=== PATIENT | female | born 1955 | race Caucasian/White ===

== ENCOUNTER 2017-06-10 10:30 | Outpatient (RCR) | payer OTHER, SELFPAY ==
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
--- NOTE | 2017-05-21 10:48 | HP.PTREVAL_ITS ---
Christine Wright, It has been my pleasure to treat MELANIE BRISENO over the last 6 visits for NECK PAIN, CERVICAL ARTHRITIS, NUMBNESS OF RIGHT ARM. Please see the progress note below for an update on the physical therapy plan of care! Subjective: PATIENT REPORTS SHE STILL GETS PAIN WHEN SHE BENDS AND REACHES (AND HER ARM FEELS LIKE IT IS GOING TO FALL OFF) BUT IT IS MUCH BETTER. SHE REPORTS SHE IS CONTINUING TO IMPROVE WITH THE EX'S. STATES SHE WANTS TO CONTINUE PT IF SHE CAN GET MORE INSURANCE APPROVAL. CONSTANT 1/10 NECK PAIN X 20 YEARS. RIGHT UE GETS NUMB, TINGLY AND/OR WEAK ON A DAILY BASIS. Objective/Function: GOOD PROGRESS TOWARD ALL GOALS BUT PATIENT CONTINUES TO HAVE SIGNIFICANT RIGHT UE SX'S. RECOMMEND FOLLOW WITH DR. FOFANA AT THIS POINT SINCE SHE MAY NEED TO STOP PT. UPON EXAM TODAY, DESI FAUCET POLISHER STRENGTH = 50LBS. MMT : RIGHT SHOULDER FLEX 4/5, ABD 4-/5, IR 5/5, ER 4/5, ELBOW FLEX 5/5, ELBOW EXT 4/4. LUE: 5/5. DESI UE ROM WFL. CERVICAL MVMT LOSS: FLEX - NIL, PRO - NIL, EXT - MOD, RET - MOD, RIGHT ROT - MOD, LEFT ROT - MIN, DESI SB - MOD. RIGHT ROTATION AND RIGHT SB STILL PROVOKE RIGHT NECK PAIN. MMT OF RIGHT SHOULER PROVOKES RIGHT UE PAIN AND WEAKNESS DURING AND AFTER. RECOMMEND CONTINUED PT PER POC 2-3 TIMES A WEEK X 3-4 WEEKS. Plan Plan: RECOMMEND CONT PT 2-3 TIMES A WEEK X 3-4 WEEKS FOR CERVICAL MODALITIES NEEDED. CERVICAL ISOMETRICS. POSTURE CORRECTION/STRENGTHENING. AROM OF C- SPINE. DESI UE ROM/STRETCHING/STRENGTHEING TOLERATED. HEP INSTRUCTION. NO PASSIVER CERVICAL ROM, TX OR MOBILIZATION. Goals Goal 1:: DECREASE C/O NECK AND UE SX'S Goal Time Frame: 4-6 Weeks Goal Progress: Progressing Goal 2:: IMPROVE HEAD TURNING, REACHING, PERSONAL CARE, LIFTING, READING, SLEEP , WORK, DRIVING AND RECREATIONAL FUNCTION Goal Time Frame: 4-6 Weeks Goal Progress: Progressing Goal 3:: INSTRUCT IN PROPHYLAXIS Goal Time Frame: 4-6 Weeks Goal Progress: Progressing Anticipated Interventions Patient/Client Instruction: Educate patient on: Condition, Plan of Care, Risk Factors, Benefits of Fitness Program For the Purpose of:: To improve self management Therapeutic Exercise to Include: Body mechanics, Postural training, Flexibilty training, Active ROM, Scapular Strength/Stabilization For the Purpose of:: To improve ability of physical actions for home/community/ work/leisure Manual Therapy Techniques to Include: Soft tissue mobilization For the Purpose of:: To decrease pain, To decrease swelling/inflammation, To increase ROM TENS: Yes IF ES: Yes Cryotherapy (ice pack, ice massage): Yes Thermo therapy (hot pack): Yes Ultrasound (thermal/non thermal): Yes For the Purpose of:: To decrease pain, To decrease swelling/inflammation, To increase ROM Please do not hesitate to contact me at [phone] by phone or Fax: if you have questions or concerns regarding this new plan of care! Sincerely, Maude Zhu
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
--- NOTE | 2017-09-04 12:30 | HP.PTDCSUM_ITS ---
HP - PT D/C Summary It has been my pleasure to treat MELANIE BRISENO under orders from Christine Wright, for the diagnosis of NECK PAIN, CERVICAL ARTHRITIS, NUMBNESS OF RIGHT ARM for a total of 8 visit(s). Discharge Date: Please see the following information for a summary of their discharge status. - Subjective Subjective: PATIENT REPORTS SHE IS ABOUT THE SAME NOW SHE WAS AT HER LAST VISIT. SHE REPORTS HER WHOLE RIGHT UE TO HER FINGERS HAD PAIN, NUMBNESS AND TINGLING THIS MORNING WHEN SHE BENT DOWN TO REACH FOR SOMETHING. - Pain RIGHT NECK Pain Intensity (Out of 10): 1 - Overall Improvement % Improvement: 60 - Objective Objective/Function: TOLERATED ALL TREATMENT WELL TODAY. GOOD RECALL OF ALL EX'S AND SHOWING MORE INDEPENDENCE. - Goals Goal 1:: DECREASE C/O NECK AND UE SX'S Goal Progress: Progressing Goal 2:: IMPROVE HEAD TURNING, REACHING, PERSONAL CARE, LIFTING, READING, SLEEP , WORK, DRIVING AND RECREATIONAL FUNCTION Goal Progress: Progressing Goal 3:: INSTRUCT IN PROPHYLAXIS Goal Progress: Progressing - Plan Plan: CONT PER POC - D/C Information If there are questions or concerns regarding this patient's physical therapy, please feel free to call me at [phone]. Thank you for the referral of this patient. Sincerely, Maude Zhu
== END 2017-06-10 19:00 | disposition home or self-care (01) ==
LOC: PT 10:30
PROVIDERS: Family Provider Family Medicine; PCP Family Medicine; Visit Provider Nurse Practitioner Adult Health
DX: M54.2 Cervicalgia (principal); M46.82 Other specified inflammatory spondylopathies, cervical region; R20.0 Anesthesia of skin
CPT/HCPCS: 97014 ×5; 97035 ×5; 97110 ×3; 97162; 97530 ×5; G0283

== ENCOUNTER → 2017-09-15 12:07 | Outpatient (CLI) | payer OTHER, SELFPAY ==
[2017-09-15 14:08] LABS: Absolute Lymphocyte Count 1.89 X10^3/ul (0.83-4.51); Absolute Neutrophil Count 3.1 X10^3/uL (2.0-7.7); Basophil# 0.03 X10^3/uL; Basophil% 0.5 % (0-1); Eosinophil# 0.14 X10^3/uL; Eosinophils% 2.5 % (0-5); Hematocrit 40.6 % (37-47); Hemoglobin 13.5 g/dl (12.0-15.0); Lymphocyte # 1.89 X10^3/ul (4.0); Lymphocyte % 33.6 % (19-41); Mean Corp Hgb Conc 33.3 g/gl (32-36); Mean Corpuscular Hgb 30.3 pg (27.0-32.0); Mean Platelet Vol. 9.4 fl (6.2-12.0); Monocyte# 0.46 X10^3/uL; Monocyte% 8.2 % (0-10); POSITIVE COUNT NO; POSITIVE DIFFERENTIAL NO; POSITIVE MORPHOLOGY NO; Platelet Count 263 K/mm3 (150-450); RBC Distribution Width CV 13.6 % (11.6-14.6); RBC Distribution Width SD 44.8 fl (35.1-43.9); Red Blood Count 4.46 M/mm3 (4.2-5.4); White Blood Count 5.6 K/mm3 (4.4-11.0)
[2017-09-15 14:33] LABS: Vitamin D,25 Hydroxy 29.3 ng/mL (29.95-100.01)
[2017-09-15 14:34] LABS: AST(SGOT) 24 U/L (15-37); Alanine Aminotransfer ALT/SGPT 30 U/L (13-56); Albumin, Serum 3.7 g/dL (3.2-5.0); Alkaline Phosphatase 137 U/L (45-117); Anion Gap 6 (5-15); BUN 18 mg/dL (7-18); BUN/Creat Ratio 21.7 RATIO (10-20); Calcium,Total 8.7 mg/dL (8.5-10.1); Chloride 108 mmol/L (98-107); Cholesterol 211 mg/dL (200); Creatinine, Serum 0.83 mg/dL (0.55-1.02); EST Glomerular Filtration Rate 74 mL/min (>60); Est Glom Filt Rate - Afr Amer 89 mL/min (>60); Ferritin 67 ng/mL (8-252); Globulin 3.7 g/dL (2.2-4.2); Glucose 80 mg/dL (74-106); High Density Lipoprotein 70 mg/dL; Iron 53 ug/dL (50-170); Potassium 3.8 mmol/L (3.5-5.1); Protein, Total 7.4 g/dL (6.4-8.2); Sodium Level 143 mmol/L (136-145); Triglycerides 164 mg/dL; Very Low Density Lipoprotein 33 mg/dL (5-40)
== END ==
PROVIDERS: Family Provider Family Medicine; PCP Family Medicine; Visit Provider Family Medicine
DX: E03.9 Hypothyroidism, unspecified (principal); R53.83 Other fatigue; K21.9 Gastro-esophageal reflux disease without esophagitis
CPT/HCPCS: 36415; 80053; 80061; 82306; 82728; 83540; 84443; 85025; 86140

== ENCOUNTER 2017-09-16 00:06 | Emergency (ER) | payer OTHER, SELFPAY ==
[2017-09-16 00:08] VITALS: BP 153/61; PULSE 73; RESP 17; TEMP 36.2; O2SAT 96; BMI 36.6
--- NOTE | 2017-09-16 00:30 | EKG12_ITS ---
Test Reason : SB Blood Pressure : / mmHG Vent. Rate : 062 BPM Atrial Rate : 062 BPM P-R Int : 136 ms QRS Dur : 088 ms QT Int : 424 ms P-R-T Axes : 020 -12 017 degrees QTc Int : 430 ms Normal sinus rhythm Nonspecific ST and T wave abnormality Abnormal ECG Confirmed by EDUARDO KING, RANDY ([id number]), copy editor JUDIE DANIELLE ([id number]) on 09/17/2017 3:32:13 PM Referred By: SHA Confirmed By:RANDY CLARK MD
--- NOTE | 2017-09-16 00:32 | ED.DCSUM_ITS ---
- ER Visit Summary Date of Service: 09/16/17 Chief Complaint: Palpitations, lightheaded, facial tingling History of Present Illness: The patient is a 61 F sudden lightheadedness with palpitations at 11 PM. She had tingling in her left hindu along with left shoulder. There is no numbness or facial weakness. No hemiparesis. No speech changes. Denies any chest pains. Denies recent nausea vomiting diarrhea. No recent upper respiratory illness. Symptoms currently resolved. No stroke history. No cardiac history. On thyroid medications. Denies tobacco, alcohol , or illicit drug use. Physical Examination: General: Alert and oriented ?3, no acute distress HEENT: Normocephalic, atraumatic. Moist mucosa membranes Neck: supple, nontender. Cardiovascular: Regular rate and rhythm, no murmurs Respiratory: Normal breath sounds, symmetric, no distress Abdomen: Soft, nontender, nondistended Extremities: Nontender, no edema, pulses intact ?4 Neuro: no focal neurological deficits. NIH equals 0. Test Results: EKG: Sinus rate of 62, no ST or T-wave changes. White count 7.2. Hemoglobin 17. Potassium 3.6. Creatinine 0.82. Emergency Department Course and Treatment: Patient was triaged with concerns for stroke symptoms. My evaluation these were not stroke symptoms. She had near syncopal symptoms with palpitations. No focal neurological deficits. EKG was normal. Basic labs are normal. Given 500 cc of normal saline. She was ambulating apart with no difficulties. Discussed palpitations with monitoring symptoms. Follow-up with her PCP reevaluation for possible Holter monitor. She does admit to drinking tea however drinks this in the morning. Patient understands and agrees with plan. Treatment Plan: [] Disposition: Discharge Impression: 1. Palpitations 2. Near syncope This note was generated with [employer] software. It may contain incorrect words, spelling, and punctuation that were not noted in review of the chart prior to signing ED Disposition - Plan for ED Patient: Disposition: Home or Assisted Living Chief Complaint: Numb/Ting Diagnosis: Palpitations Instructions: ED Palpitations Referrals: Balbir Leach MD [Primary Care Provider] - 3-5 Days
[2017-09-16 01:08] VITALS: BP 129/72; PULSE 61; RESP 12; O2SAT 97
[2017-09-16 01:12] LABS: Absolute Lymphocyte Count 2.71 X10^3/ul (0.83-4.51); Absolute Neutrophil Count 3.8 X10^3/uL (2.0-7.7); Basophil# 0.03 X10^3/uL; Basophil% 0.4 % (0-1); Eosinophil# 0.17 X10^3/uL; Eosinophils% 2.3 % (0-5); Hematocrit 39.3 % (37-47); Hemoglobin 12.8 g/dl (12.0-15.0); Lymphocyte # 2.71 X10^3/ul (4.0); Lymphocyte % 36.4 % (19-41); Mean Corp Hgb Conc 32.6 g/gl (32-36); Mean Corpuscular Hgb 29.4 pg (27.0-32.0); Mean Corpuscular Volume 90.3 fL (81-99); Mean Platelet Vol. 8.7 fl (6.2-12.0); Monocyte# 0.71 X10^3/uL; Monocyte% 9.5 % (0-10); Neutrophil # 3.82 X10^3/uL (2.7-7.7); Neutrophil % 51.3 % (47-70); Platelet Count 223 K/mm3 (150-450); RBC Distribution Width CV 13.4 % (11.6-14.6); Red Blood Count 4.35 M/mm3 (4.2-5.4); White Blood Count 7.5 K/mm3 (4.4-11.0)
[2017-09-16 01:17] LABS: POSITIVE COUNT NO; POSITIVE DIFFERENTIAL NO; POSITIVE MORPHOLOGY NO
[2017-09-16 01:27] LABS: Anion Gap 5 (5-15); BUN 23 mg/dL (7-18); BUN/Creat Ratio 27.9 RATIO (10-20); Chloride 107 mmol/L (98-107); Creatinine, Serum 0.82 mg/dL (0.55-1.02); EST Glomerular Filtration Rate 74 mL/min (>60); Est Glom Filt Rate - Afr Amer 90 mL/min (>60); Estimated Creatinine Clearance 55.54 ml/min; Glucose 102 mg/dL (74-106); Potassium 3.6 mmol/L (3.5-5.1); Sodium Level 142 mmol/L (136-145)
[2017-09-16 02:45] VITALS: BP 118/76; PULSE 67; RESP 16; O2SAT 100
== END 2017-09-16 02:46 | disposition home or self-care (01) ==
PROVIDERS: Emergency Provider Emergency Medicine; Family Provider Family Medicine; PCP Family Medicine
DX: R00.2 Palpitations (principal); R55 Syncope and collapse; Z79.899 Other long term (current) drug therapy
CPT/HCPCS: 80048; 85025; 93005; 96360; 99284; J7040

== ENCOUNTER → 2017-11-17 12:01 | Outpatient (CLI) | payer OTHER, SELFPAY ==
[2017-11-17 13:48] LABS: Absolute Lymphocyte Count 1.75 X10^3/ul (0.83-4.51); Absolute Neutrophil Count 3.2 X10^3/uL (2.0-7.7); Basophil# 0.02 X10^3/uL; Basophil% 0.4 % (0-1); Eosinophil# 0.15 X10^3/uL; Eosinophils% 2.7 % (0-5); Hematocrit 39.9 % (37-47); Hemoglobin 12.9 g/dl (12.0-15.0); Lymphocyte # 1.75 X10^3/ul (4.0); Lymphocyte % 31.3 % (19-41); Mean Corp Hgb Conc 32.3 g/gl (32-36); Mean Corpuscular Volume 89.7 fL (81-99); Mean Platelet Vol. 9.6 fl (6.2-12.0); Monocyte# 0.45 X10^3/uL; Neutrophil # 3.22 X10^3/uL (2.7-7.7); Neutrophil % 57.4 % (47-70); Platelet Count 274 K/mm3 (150-450); RBC Distribution Width CV 13.4 % (11.6-14.6); RBC Distribution Width SD 43.8 fl (35.1-43.9); Red Blood Count 4.45 M/mm3 (4.2-5.4); White Blood Count 5.6 K/mm3 (4.4-11.0)
[2017-11-17 13:53] LABS: POSITIVE COUNT NO; POSITIVE DIFFERENTIAL NO; POSITIVE MORPHOLOGY NO
[2017-11-17 14:11] LABS: Anion Gap 4 (5-15); BUN 18 mg/dL (7-18); Calcium,Total 8.5 mg/dL (8.5-10.1); Chloride 108 mmol/L (98-107); Creatinine, Serum 1.06 mg/dL (0.55-1.02); EST Glomerular Filtration Rate 56 mL/min (>60); Est Glom Filt Rate - Afr Amer 67 mL/min (>60); Glucose 79 mg/dL (74-106); Potassium 3.5 mmol/L (3.5-5.1); Sodium Level 143 mmol/L (136-145); T4 Free Direct 1.18 ng/dL (0.76-1.46); Thyroid Stim Hormone (TSH) 2.85 uIU/mL (0.358-3.74)
== END ==
PROVIDERS: Family Provider Family Medicine; PCP Family Medicine; Visit Provider Family Medicine
DX: R59.1 Generalized enlarged lymph nodes (principal); E03.9 Hypothyroidism, unspecified
CPT/HCPCS: 36415; 80048; 84439; 84443; 85025

== ENCOUNTER → 2018-03-31 11:55 | Outpatient (CLI) | payer OTHER, SELFPAY ==
[2018-03-31 13:46] LABS: Hematocrit 37.9 % (37-47); Hemoglobin 12.6 g/dl (12.0-15.0); Mean Corp Hgb Conc 33.2 g/gl (32-36); Mean Corpuscular Hgb 29.7 pg (27.0-32.0); Mean Corpuscular Volume 89.4 fL (81-99); Platelet Count 288 K/mm3 (150-450); RBC Distribution Width CV 13.7 % (11.6-14.6); RBC Distribution Width SD 44.1 fl (35.1-43.9); Red Blood Count 4.24 M/mm3 (4.2-5.4); White Blood Count 6.2 K/mm3 (4.4-11.0)
[2018-03-31 13:47] LABS: Scan Indicated on CBC? Y/N NO
[2018-03-31 14:14] LABS: Vitamin B12 713 pg/mL (211-911)
[2018-03-31 14:18] LABS: Anion Gap 5 (5-15); BUN 17 mg/dL (7-18); BUN/Creat Ratio 23.6 RATIO (10-20); Calcium,Total 8.7 mg/dL (8.5-10.1); Chloride 105 mmol/L (98-107); Creatinine, Serum 0.72 mg/dL (0.55-1.02); EST Glomerular Filtration Rate 87 mL/min (>60); Est Glom Filt Rate - Afr Amer 105 mL/min (>60); Glucose 81 mg/dL (74-106); Potassium 3.6 mmol/L (3.5-5.1); Sodium Level 141 mmol/L (136-145); T4 Free Direct 1.19 ng/dL (0.76-1.46)
== END ==
PROVIDERS: Family Provider Family Medicine; PCP Family Medicine; Visit Provider Family Medicine
DX: R42 Dizziness and giddiness (principal); E03.9 Hypothyroidism, unspecified
CPT/HCPCS: 36415; 80048; 82607; 84439; 84443; 85027

== ENCOUNTER → 2018-10-19 15:08 | Outpatient (CLI) | payer MEDICARE, OTHER, SELFPAY ==
--- NOTE | 2018-10-19 15:21 | RAD_ITS ---
STUDY: X-RAY - PELVIS AND RIGHT HIP REASON FOR EXAM: Female, 62 years old. Chronic hip pain recently worsening. TECHNIQUE: 3 views of the pelvis and hip. COMPARISON: None. FINDINGS: There is a non-specific bowel gas pattern. Normal visualized soft tissue structures. Normal bilateral iliac wings, sacroiliac joints and visualized sacrum. Normal bilateral superior and inferior pubic rami. Normal pubic symphysis. Normal bilateral ischial tuberosities. Normal visualized femoral head. There is osteoarthritic spur formation of the acetabular rim. There is mild articular joint space narrowing of the hip. RAD/HIP, UNI W/ Pelvis 2-3 Views IMPRESSION: Degenerative changes of the right hip without fracture or dislocation. Electronically Signed: Valentín Mathew DO at 15:57 EDT Tel [phone], Service support ,
[2018-10-19 17:45] LABS: Absolute Lymphocyte Count 2.15 X10^3/ul (0.83-4.51); Absolute Neutrophil Count 3.2 X10^3/uL (2.0-7.7); Basophil# 0.04 X10^3/uL; Basophil% 0.7 % (0-1); Eosinophil# 0.14 X10^3/uL; Eosinophils% 2.3 % (0-5); Hematocrit 40.1 % (37-47); Hemoglobin 13.2 g/dl (12.0-15.0); Lymphocyte # 2.15 X10^3/ul (4.0); Lymphocyte % 35.6 % (19-41); Mean Corp Hgb Conc 32.9 g/gl (32-36); Mean Corpuscular Hgb 28.6 pg (27.0-32.0); Mean Platelet Vol. 10.2 fl (6.2-12.0); Monocyte% 8.3 % (0-10); Neutrophil % 52.9 % (47-70); POSITIVE COUNT NO; POSITIVE DIFFERENTIAL NO; POSITIVE MORPHOLOGY NO; Platelet Count 310 K/mm3 (150-450); RBC Distribution Width CV 14.2 % (11.6-14.6); RBC Distribution Width SD 44.7 fl (35.1-43.9); Red Blood Count 4.61 M/mm3 (4.2-5.4)
[2018-10-19 17:53] LABS: Vitamin B12 1902 pg/mL (211-911); Vitamin D,25 Hydroxy 40.7 ng/mL (29.95-100.01)
[2018-10-19 17:57] LABS: AST(SGOT) 26 U/L (15-37); Alanine Aminotransfer ALT/SGPT 32 U/L (13-56); Albumin, Serum 3.8 g/dL (3.2-5.0); Alkaline Phosphatase 157 U/L (45-117); Anion Gap 5 (5-15); BUN 18 mg/dL (7-18); BUN/Creat Ratio 26.2 RATIO (10-20); Calcium,Total 8.6 mg/dL (8.5-10.1); Chloride 105 mmol/L (98-107); Creatinine, Serum 0.69 mg/dL (0.55-1.02); EST Glomerular Filtration Rate 91 mL/min (>60); Est Glom Filt Rate - Afr Amer 111 mL/min (>60); Glucose 78 mg/dL (74-106); Iron 43 ug/dL (50-170); Potassium 3.7 mmol/L (3.5-5.1); Protein, Total 7.8 g/dL (6.4-8.2); Sodium Level 140 mmol/L (136-145); Thyroid Stim Hormone (TSH) 0.11 uIU/mL (0.358-3.74)
[2018-10-20 09:16] LABS: T4 Free Direct 1.33 ng/dL (0.76-1.46)
== END ==
PROVIDERS: Family Provider Family Medicine; PCP Family Medicine; Referring Provider Family Medicine; Visit Provider Family Medicine
DX: M25.551 Pain in right hip (principal); R53.83 Other fatigue; R79.89 Other specified abnormal findings of blood chemistry
CPT/HCPCS: 36415; 73502; 80053; 82306; 82607; 83540; 84439; 84443; 85025

== ENCOUNTER → 2018-11-11 10:52 | Outpatient (CLI) | payer MEDICARE, OTHER, SELFPAY ==
--- NOTE | 2018-11-11 10:54 | BI_ITS ---
MAMMOGRAPHY - BILATERAL SCREENING REASON FOR EXAM: Female, 63 years old. Routine annual screening examination. PERTINENT HISTORY: Non-contributory. TECHNIQUE: Digital bilateral breast kojo (3D mammographic acquisition) in the CC and MLO projections. 2-D mediolateral oblique (MLO) and craniocaudad (CC) views of both breasts were obtained. CAD: Full Field Digital Mammography with Computer Added Detection was performed. COMPARISON: Comparison is made with prior study dated December 19, 2016 and August 31, 2013. FINDINGS: Breast Composition: The breasts are almost entirely fatty. There are no dominant masses or suspicious calcifications. No other significant abnormalities are identified. There has been no significant change since the prior study. BI/SCREENING MAMM (CAD), BILAT IMPRESSION: Stable bilateral screening mammogram. Yearly follow-up mammogram recommended. (A) ASSESSMENT CATEGORY: BIRADS Category 1: Negative. A letter regarding these results will be sent to the patient by the facility within 30 days. Approximately 10% of breast cancers are not detected by mammography. A normal mammogram should not delay biopsy of a clinically suspicious abnormality. [id number] Electronically Signed: Geoff Reyes, at 13:40 EDT , Service support ,
== END ==
PROVIDERS: Family Provider Family Medicine; PCP Family Medicine; Referring Provider Family Medicine; Visit Provider Family Medicine
DX: Z12.31 Encounter for screening mammogram for malignant neoplasm of breast (principal); Z78.0 Asymptomatic menopausal state
CPT/HCPCS: 77063; 77067

== ENCOUNTER → 2018-12-21 11:47 | Outpatient (CLI) | payer MEDICARE, OTHER, SELFPAY | PROVIDERS: Family Provider Family Medicine; PCP Family Medicine; Referring Provider Family Medicine; Visit Provider Family Medicine | DX: R30.0 Dysuria (principal) | CPT/HCPCS: 87086; 87088 ==

== ENCOUNTER → 2018-12-24 08:29 | Outpatient (CLI) | payer MEDICARE, OTHER, SELFPAY ==
--- NOTE | 2018-12-24 08:34 | BD_ITS ---
STUDY: DUAL ENERGY X-RAY ABSORPTIOMETRY / DXA REASON FOR EXAM: Female, 63 years old. The patient is postmenopausal. No loss of height. TECHNIQUE: Bone Mineral Density (BMD) measurements of lumbar spine and bilateral hips were obtained. COMPARISON: Comparison is made with prior examination dated December 19, 2016. FINDINGS: Lumbar Spine (L1-L4): g/cm2 (1.240) / T-score (0.5) / Z-score (2.1) Findings are suggestive of normal bone density with a low fracture risk. Left Femur Total: g/cm2 (1.099) / T-score (0.7) / Z-score (1.9) Left Femoral Neck: g/cm2 (1.074) / T-score (0.3) / Z-score (1.7) Right Femur Total: g/cm2 (1.065) / T-score (0.5) / Z-score (1.6) Right Femoral Neck: g/cm2 (1.076) / T-score (0.3) / Z-score (1.7) The T-Scores on the most recent prior examination were: Lumbar Spine (L1-L4): There has been worsening of bone density since the previous examination. Left Femur Total: which represents an improvement of 2.9%. Right Femur Total: which represents a worsening of 1.1%. BD/Dexa Bone Density Study IMPRESSION: The patient is considered normal as outlined below according to World [place] Organization (WHO) criteria with a low fracture risk. There has been worsening of bone density since the previous examination. Reference Information: The T-score is the number of standard deviations above or below the standard which is normal for young adults at their peak bone mineral density. The World Health Organization (WHO) interprets the T-scores as follows: Above -1 Normal bone density Between -1 and -2.5 Osteopenia Equal to / or below -2.5 Osteoporosis As a practical clinical guideline, osteopenia may be graded as follows: Mild -1 through -1.5 Moderate -1.6 through -2.0 Severe -2.1 through -2.4 The Z-score is the number of standard deviations above or below age-matched controls. A Z-score of less than -1.5 would be considered abnormal. References: 1. NIH Osteoporosis and Related Bone Diseases http://www.osteo.org 2. International Society for Clinical Densitometry http://www.iscd.org 3. National Osteoporosis Foundation http://www.nof.org Electronically Signed: Geoff Reyes, at 12:42 EDT , Service support ,
== END ==
PROVIDERS: Family Provider Family Medicine; PCP Family Medicine; Referring Provider Family Medicine; Visit Provider Family Medicine
DX: Z00.00 Encounter for general adult medical examination without abnormal findings (principal); Z78.0 Asymptomatic menopausal state
CPT/HCPCS: 77080

== ENCOUNTER → 2019-02-08 10:26 | Outpatient (CLI) | payer MEDICARE, OTHER, SELFPAY ==
[2019-02-08 12:54] LABS: T4 Free Direct 0.92 ng/dL (0.76-1.46); T4 Total, Thyroxin 8.7 ug/dL (4.8-13.9); Thyroid Stim Hormone (TSH) 7.07 uIU/mL (0.358-3.74)
== END ==
PROVIDERS: Family Provider Family Medicine; PCP Family Medicine; Visit Provider Family Medicine
DX: E03.9 Hypothyroidism, unspecified (principal); R79.89 Other specified abnormal findings of blood chemistry
CPT/HCPCS: 36415; 84436; 84439; 84443

== ENCOUNTER → 2019-02-25 14:17 | Outpatient (CLI) | payer MEDICARE, OTHER, SELFPAY ==
--- NOTE | 2019-02-25 14:27 | RAD_ITS ---
STUDY: X-RAY - RIGHT SHOULDER REASON FOR EXAM: Female, 63 years old. Pain TECHNIQUE: 4 view(s) of the shoulder. COMPARISON: None. FINDINGS: There is mild degenerative arthrosis of the glenohumeral articulation. There is mild to moderate degenerative arthrosis of the acromioclavicular joint without inferior osseous spur formation. There is a curved undersurface of the acromion consistent with a Type II morphology. Intact humeral head and visualized proximal humerus. The soft tissue structures are unremarkable. There is no demonstrated fracture. Normal visualized pulmonary apex. RAD/Shoulder min 2 Views IMPRESSION: Mild to moderate AC joint arthrosis. Mild glenohumeral osteoarthritis. Electronically Signed: Tc Andrade MD at 15:21 EDT Tel [phone], Service support ,
[2019-02-25 15:39] LABS: Absolute Lymphocyte Count 2.24 X10^3/uL (0.83-4.51); Absolute Neutrophil Count 2.9 X10^3/uL (2.0-7.7); Basophil# 0.07 X10^3/uL; Basophil% 1.2 % (0-1); Eosinophil# 0.22 X10^3/uL; Eosinophils% 3.8 % (0-5); Hematocrit 36.4 % (37-47); Hemoglobin 11.5 g/dL (12.0-15.0); Lymphocyte # 2.24 X10^3/ul (4.0); Lymphocyte % 38.4 % (19-41); Mean Corp Hgb Conc 31.6 g/dL (32-36); Mean Corpuscular Volume 91.7 fL (81-99); Mean Platelet Vol. 9.3 fl (6.2-12.0); Monocyte# 0.43 X10^3/uL; Monocyte% 7.4 % (0-10); NRBC Flagged by Analyzer 0 % (0-5); Neutrophil # 2.86 X10^3/uL (2.7-7.7); Platelet Count 322 K/mm3 (150-450); RBC Distribution Width CV 13.6 % (11.6-14.6); Red Blood Count 3.97 M/mm3 (4.2-5.4); White Blood Count 5.8 K/mm3 (4.4-11.0)
[2019-02-25 16:07] LABS: CRP 3.99 mg/L (0.0-3.0)
[2019-02-25 16:18] LABS: Erythrocyte Sedimentation Rate 15 mm/hr (0-30)
== END ==
PROVIDERS: Family Provider Family Medicine; PCP Family Medicine; Referring Provider Family Medicine; Visit Provider Family Medicine
DX: M79.601 Pain in right arm (principal)
CPT/HCPCS: 36415; 73030; 85025; 85652; 86140

== ENCOUNTER → 2019-02-26 15:19 | Outpatient (CLI) | payer MEDICARE, OTHER, SELFPAY ==
--- NOTE | 2019-02-26 15:25 | US_ITS ---
HISTORY: Right lateral deltoid pain and swelling. 45 images and 131 images in a cine loop. Comparison study is x-rays of the right shoulder from yesterday afternoon. Findings: Within the region of interest there is a bulging of tissue from the deltoid muscle. This tissue appears to be slightly heterogeneous. Its margins are ill-defined. It measures approximately 3.8 cm across. The land leveler did not measure it in any other planes. Color Doppler imaging over this lesion fails to demonstrate flow, however, flow is only demonstrated minimally with in and adjacent vessel within the subcutaneous fat. No flow is demonstrated on any of the images within any of the muscle. Indeterminate study. Possible 3.8 cm mass within the left deltoid muscle. Whether this represents a contracted muscle, a hematoma, a phlegmon, or a tumor, cannot be determined based on current imaging. at 0143 Reported and signed by: Lei Delgadillo MD Electronically Signed: Lei Delgadillo MD at 1:41 EDT Tel , Service support , US/Ext Non Vasc Limited/Soft Tiss
== END ==
PROVIDERS: Family Provider Family Medicine; PCP Family Medicine; Referring Provider Family Medicine; Visit Provider Family Medicine
DX: M79.18 Myalgia, other site (principal)
CPT/HCPCS: 76882

== ENCOUNTER → 2019-03-06 07:58 | Outpatient (CLI) | payer MEDICARE, OTHER, SELFPAY ==
--- NOTE | 2019-03-06 08:07 | MRI_ITS ---
HISTORY: Upper arm/deltoid mass, limited range of motion MR UE Non Joint W/O Contrast TECHNIQUE: Multisequence multiplanar MR imaging of the right upper arm was performed without intravenous gadolinium. # of images incl. paperwork: 187 COMPARISON: Right upper extremity ultrasound 02/26/2019 and right shoulder radiographs 02/25/2019 FINDINGS: Within the lateral aspect of the upper right deltoid musculature, is a intramuscular lipoma measuring 3.3 x 3.0 x 4.2 cm in greatest TV/AP/CC dimensions. Remainder of the visualized deltoid musculature is within normal limits. Remaining upper arm muscular compartments have a normal appearance. No abnormal fluid is seen within the fascial planes. No subcutaneous signal abnormalities. Humeral epicondyles were not included on this exam otherwise, remainder of the humerus is intact without fracture or destructive letter or blastic osseous lesions. Marrow signal is within normal limits. MRI/Upper Ext/No Jt/ wo IMPRESSION: 1. 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 No evidence for malignancy. at 2252 Reported and signed by: Zaheer Osman MD Electronically Signed: Zaheer Osman MD at 22:51 EDT Tel , Service support ,
== END ==
PROVIDERS: Family Provider Family Medicine; PCP Family Medicine; Referring Provider Family Medicine; Visit Provider Family Medicine
DX: R22.31 Localized swelling, mass and lump, right upper limb (principal)
CPT/HCPCS: 73218

== ENCOUNTER → 2019-03-26 09:21 | Outpatient (CLI) | payer MEDICARE, OTHER, SELFPAY ==
[2019-03-26 09:16] VITALS: BMI 33.8
--- NOTE | 2019-03-26 09:23 | RAD_ITS ---
STUDY: X-RAY - CERVICAL SPINE REASON FOR EXAM: Female, 63 years old. Neck pain. TECHNIQUE: 5 view(s) of the cervical spine were obtained on 6 images. COMPARISON: December 13, 2016 FINDINGS: Mild generalized osteopenia. Normal anterior atlantoaxial articulation. Normal odontoid process. Normal cervical lordosis. Normal vertebral bodies and endplates. Intervertebral disc space narrowing at C5-6 and C6-7 with osteophyte formation most marked at C6-7, unchanged. Anterior bony neural foraminal encroachment at C6-7 bilaterally. Stable surgical clips in the neck. RAD/Cerv Spine 4 or 5 Views IMPRESSION: Osteopenia with mild lower cervical spondylosis as described. Electronically Signed: Ortiz Marie MD at 14:51 EDT , Service support ,
== END ==
PROVIDERS: Family Provider Family Medicine; PCP Family Medicine; Referring Provider Orthopaedic Surgery; Visit Provider Orthopaedic Surgery
DX: M54.2 Cervicalgia (principal); M79.601 Pain in right arm
CPT/HCPCS: 72050

== ENCOUNTER → 2019-05-24 11:37 | Outpatient (CLI) | payer MEDICARE, OTHER, SELFPAY ==
[2019-03-26 09:16] VITALS: BMI 33.8
[2019-05-24 13:34] LABS: Free T3 2.4 pg/mL (2.18-3.98); T4 Total, Thyroxin 13.3 ug/dL (4.8-13.9)
== END ==
PROVIDERS: Family Provider Family Medicine; PCP Family Medicine; Visit Provider Family Medicine
DX: E03.9 Hypothyroidism, unspecified (principal)
CPT/HCPCS: 36415; 84436; 84439; 84443; 84481

== ENCOUNTER → 2019-10-26 15:45 | Outpatient (CLI) | payer MEDICARE, OTHER, SELFPAY ==
[2019-09-02 09:26] VITALS: BMI 33.8
[2019-10-26 17:34] LABS: Hematocrit 40.6 % (37-47); Hemoglobin 12.8 g/dL (12.0-15.0); Mean Corp Hgb Conc 31.5 g/dL (32-36); Mean Corpuscular Hgb 27.9 pg (27.0-32.0); Mean Corpuscular Volume 88.6 fL (81-99); Mean Platelet Vol. 10.2 fl (6.2-12.0); Platelet Count 314 K/mm3 (150-450); RBC Distribution Width SD 52.1 fl (35.1-43.9); Red Blood Count 4.58 M/mm3 (4.2-5.4); White Blood Count 7.7 K/mm3 (4.4-11.0)
[2019-10-26 18:03] LABS: Vitamin B12 521 pg/mL (211-911); Vitamin D,25 Hydroxy 35.8 ng/mL
[2019-10-26 18:15] LABS: ALB/GLOB Ratio 0.8 RATIO (0.9-2.4); AST(SGOT) 86 U/L (15-37); Alanine Aminotransfer ALT/SGPT 77 U/L (13-56); Albumin, Serum 3.4 g/dL (3.2-5.0); Alkaline Phosphatase 200 U/L (45-117); Anion Gap 4 (5-15); BUN 31 mg/dL (7-18); BUN/Creat Ratio 33.8 RATIO (10-20); Calcium,Total 8.7 mg/dL (8.5-10.1); Chloride 107 mmol/L (98-107); Creatinine, Serum 0.92 mg/dL (0.55-1.02); EST Glomerular Filtration Rate 65 mL/min (>60); Est Glom Filt Rate - Afr Amer 79 mL/min (>60); Glucose 105 mg/dL (74-106); Iron 69 ug/dL (50-170); Potassium 3.6 mmol/L (3.5-5.1); Protein, Total 7.4 g/dL (6.4-8.2); Sodium Level 141 mmol/L (136-145); T4 Free Direct 1.36 ng/dL (0.76-1.46); Thyroid Stim Hormone (TSH) 1.14 uIU/mL (0.358-3.74)
[2019-10-27 18:14] LABS: Ferritin 33 ng/mL (8-252); GGTP 230 U/L (5-55)
== END ==
PROVIDERS: PCP Family Medicine; Referring Provider Family Medicine; Visit Provider Family Medicine
DX: E03.9 Hypothyroidism, unspecified (principal); R53.83 Other fatigue; R79.89 Other specified abnormal findings of blood chemistry
CPT/HCPCS: 36415; 80053; 82306; 82607; 82728; 82977; 83540; 84439; 84443; 85027

== ENCOUNTER → 2019-11-01 08:56 | Outpatient (CLI) | payer MEDICARE, OTHER, SELFPAY ==
[2019-09-02 09:26] VITALS: BMI 33.8
--- NOTE | 2019-11-01 09:01 | US_ITS ---
STUDY: ABDOMINAL ULTRASOUND - RIGHT UPPER QUADRANT REASON FOR VISIT: Female, 64 years old ELEVATED LFTS TECHNIQUE: Ultrasound evaluation of the right upper quadrant was performed with real-time and static miramontes-scale imaging. TECHNICAL QUALITY: Adequate. COMPARISON: None. FINDINGS: Liver: The liver measures 11.1 cm. There is normal echogenicity of the liver. The bile ducts are within normal limits. There is hepatic color flow. The direction of portal flow is hepatopetal. There is no demonstrated mass lesion. Gallbladder: Normal distended gallbladder. The gallbladder wall measures 2.4 mm. There is a negative sonographic Mclean''s sign. There is no pericholecystic fluid. There are no gallstones. There is a 2.5 mm gallbladder polyp. Common Bile Duct (C.B.D.): The common bile duct measures 2.7 mm. Pancreas: Normal size of the head, body and tail of the pancreas. There is normal echogenicity of the pancreas. There is no demonstrated pancreatic mass or cyst. Right Kidney: Normal size of the right kidney. The right kidney measures 10 cm x 5.5 cm x 4.8 cm. Normal renal cortex. The right cortex measures 1.4 cm. There is no demonstrated renal mass or cyst. There is no right hydronephrosis. US/Liver IMPRESSION: There is a 2.5 mm gallbladder polyp. Electronically Signed: Geoff Reyes, at 12:44 EDT , Service support ,
== END ==
PROVIDERS: PCP Family Medicine; Referring Provider Family Medicine; Visit Provider Family Medicine
DX: K82.4 Cholesterolosis of gallbladder (principal); R79.89 Other specified abnormal findings of blood chemistry
CPT/HCPCS: 76705

== ENCOUNTER → 2019-12-15 10:00 | Outpatient (CLI) | payer MEDICARE, OTHER, SELFPAY ==
[2019-09-02 09:26] VITALS: BMI 33.8
--- NOTE | 2019-12-15 10:07 | VDLE_ITS ---
Reason For Study: Rt leg swelling RIGHT LEFT GSV is normal. CFV is compressible, spontaneous, phasic, CFV is compressible, spontaneous, phasic, competent, and demonstrates normal competent and demonstrates normal augmentation. augmentation. FV is compressible, spontaneous, phasic, competent and demonstrates normal augmentation. POP V is compressible, spontaneous, phasic, competent and demonstrates normal augmentation. T/P Trunk is compressible. PTV is compressible. RT PerV is compressible. Procedure Exam performed in department. A preliminary report was called and/or faxed to [facility]. Interpretation Summary Deep veins of the right lower extremity are patent and compressible segmentally. There is no evidence of right lower extremity deep vein thrombosis. Valvular competence appears intact within the proximal deep venous system on the right . The right great saphenous vein appears patent and compressible segmentally. Ordering Physician: Balbir Leach Referring Physician: Balbir Leach Performed By: Norah Saldivar RVT
== END ==
PROVIDERS: PCP Family Medicine; Referring Provider Family Medicine; Visit Provider Family Medicine
DX: M79.89 Other specified soft tissue disorders (principal)
CPT/HCPCS: 93971

== ENCOUNTER → 2020-03-09 11:51 | Outpatient (CLI) | payer MEDICARE, OTHER, SELFPAY ==
[2019-09-02 09:26] VITALS: BMI 33.8
--- NOTE | 2020-03-09 11:54 | RAD_ITS ---
STUDY: X-RAY - LUMBAR SPINE REASON FOR EXAM: Female, 64 years old. Hip pain and into legs TECHNIQUE: 5 view(s) of the lumbar spine were obtained. COMPARISON: None FINDINGS: Normal lumbar lordosis. There is no substantial scoliosis. There is a normal alignment of the vertebrae. There is multilevel endplate spondylosis of the lumbar vertebrae. There is multi-level degenerative disc disease with multi-level disc space narrowing. There is no demonstrated fracture. The soft tissue structures are unremarkable. RAD/L/S Spine Min 4 Views IMPRESSION: Degenerative changes of the spine, as detailed above. Electronically Signed: Josemanuel Carrasco MD at 17:00 EDT , Service support ,
== END ==
PROVIDERS: PCP Family Medicine; Referring Provider Family Medicine; Visit Provider Family Medicine
DX: M54.5 Low back pain (principal)
CPT/HCPCS: 72110

== ENCOUNTER 2020-03-25 17:56 | Emergency (ER) | payer MEDICARE, OTHER, SELFPAY ==
[2019-09-02 09:26] VITALS: BMI 33.8
[2020-03-25 17:56] VITALS: BP 119/72; PULSE 73; RESP 18; TEMP 35.9; O2SAT 100; BMI 30.7
--- NOTE | 2020-03-25 18:16 | RAD_ITS ---
STUDY: X-RAY - RIGHT KNEE REASON FOR EXAM: Female, 64 years old. PAIN TO POSTERIOR KNEE AFTER TAKING STEP AND FEELING A and quot;POP and quot; TECHNIQUE: 4 view(s) of the knee. COMPARISON: None. FINDINGS: Normal visualized distal femur. Normal visualized proximal tibia and fibula. Normal proximal tibiofibular articulation. Normal medial femorotibial compartment. Normal lateral femorotibial compartment. Normal patellofemoral articulation. The soft tissue structures are unremarkable. RAD/Knee 4 or More Views IMPRESSION: No acute osseous injury is evident. Electronically Signed: Refugio Harmon MD at 19:18 EDT Tel , Service support ,
--- NOTE | 2020-03-25 18:35 | ED.VIS.GEN ---
History of Present Illness Chief Complaint: Lower Extremity Injury Informant: Patient Narrative: Patient is a 64-year-old female who presents to the emergency department for acute onset right she states she was walking whenever she felt a pop in the back of her leg. She denies any previous injury to that knee in the past. She has been having a difficult time ambulating since then. Any active range of motion of the knee does seem to trigger this. She is not taking anything for that. While at rest and not moving the knee the pain goes away. She does have a history of chronic back problems with spinal stenosis. She is supposed to have an MRI of her spine this coming Friday. She feels like this is completely different than her normal sciatica pain. She denies any loss of sensation going down the leg. She denies any significant leg swelling. No overlying skin changes. No chest pain, shortness of breath. No abdominal pain. Her back pain is at its baseline. Past Medical History - Allergies and Home Meds Allergies/Adverse Reactions: Allergies bee venom protein (honey bee) Adverse Reaction (Verified 03/25/20 17:56) Swelling Primary Care Physician: Balbir Leach MD [Primary Care Provider] - 2 Days Prior records reviewed: Yes Past Medical History: - - Hypothyroidism Smoking Status: Never smoker Review of Systems All systems negative except as indicated General: Denies: Chills, Fever, Sweats Eyes: Denies: Visual changes - bilaterally, Diplopia ENT: Denies: Rhinorrhea, Sore throat Cardiovascular: Denies: Chest pain, Palpitations Respiratory: Denies: Dyspnea, Cough, Dyspnea on exertion Gastrointestinal: Denies: Abdominal pain, Nausea, Vomiting, Diarrhea Genitourinary: Denies: Dysuria, Hematuria, Frequency Musculoskeletal: Reports: Back pain, Extremity Pain. Denies: Neck pain, Swelling Skin: Denies: Rash, Wounds Neurological: Denies: Headache, Weakness, Numbness Physical Exam Vital Signs/Narrative: Vital Signs Temp Pulse Resp BP Pulse Ox 03/25/20 17:56 96.6 F L 73 18 119/72 100 Inital Vital Signs reviewed: Yes General: Well nourished, Well developed, No Acute Distress Head: Normocephalic, Atraumatic Eyes: Perrl, EOMI ENT: Moist mucous membranes, No rhinorrhea Neck: Supple, Nontender Cardiovascular: Regular rate, Regular rhythm, No murmurs Respiratory: No distress, CTA bilaterally, Chest nontender Abdomen: Soft, Nontender, Nondistended, Normal bowel sounds Back: Nontender, Normal Inspection Extremities: - - Tenderness along the medial/posterior aspect of the right knee. 2+ DP pulse. Good muscle strength at the ankle. Patellar reflex intact. I can passively move the leg into extension without any significant pain. Patient able to slowly bring the leg back to the flex position. No significant laxity of the knee joint. No edema present. Skin: Normal color, No rash Neurological: Alert, Oriented x3, Normal Strength, Normal Sensation Psychological: Normal affect, Normal Mood Diagnostic/Tx/Re-eval - Medical Decision Making Patient presents to the ED for nontraumatic right knee pain. She felt a pop at the time of the pain. She does have pain with active range of motion. X-ray obtained which was negative for acute osseous abnormality. She actually has an appointment with her orthopedic surgeon this coming week. She can follow-up with them. She was placed in a knee brace and given crutches. She was given instructions on how to use them. Warning signs and symptoms for which to return to the ED are reviewed with her. She understands and is agreeable this plan. Patient discharged home in stable condition. ED Disposition - Plan for ED Patient: Disposition: Home or Assisted Living Diagnosis: Knee pain, acute Instructions: ED Knee Pain [facility] Referrals: Balbir Leach MD [Primary Care Provider] - 2 Days
[2020-03-25 20:01] VITALS: RESP 16
== END 2020-03-25 20:02 | disposition home or self-care (01) ==
PROVIDERS: Emergency Provider Emergency Medicine; PCP Family Medicine
DX: M25.561 Pain in right knee (principal); E03.9 Hypothyroidism, unspecified
CPT/HCPCS: 73564; 99284

== ENCOUNTER → 2020-03-28 13:15 | Outpatient (CLI) | payer MEDICARE, OTHER, SELFPAY ==
[2019-09-02 09:26] VITALS: BMI 33.8
[2020-03-25 17:56] VITALS: BMI 30.7
--- NOTE | 2020-03-28 13:27 | MRI_ITS ---
HISTORY: DDD EXAMINATION: MR Spine Lumbar W/O Contrast. 132 images TECHNIQUE: Multiplanar and multisequence MR images of the lumbar spine. IV Contrast dosage and agent: None. COMPARISON: Comparison x-rays are of the lumbar spine from March 09, 2020 FINDINGS: VERTEBRAE: Vertebral body heights are normal. Degenerative disc disease facilitates trace malalignment. L5 is posterior subluxed on S1. L2 is posteriorly subluxed on L3. L1 is posteriorly subluxed on L2. The subluxations are by 1-3 mm. There better demonstrated than on the x-ray but the same in severity. Modic type endplate changes are present in the superior endplate of S1 in the anterior inferior aspect of L5 with fatty marrow infiltration. No expansile or destructive lesion. CORD: Normal visualized portions of the spinal cord and cauda equina, with the tip of the conus medullaris at the L1 level. No intradural or intramedullary soft tissue mass or epidural fluid collection. SOFT TISSUES: Unremarkable. L1/L2: No disc bulge, central canal stenosis, or neural foraminal stenosis. L2/L3: No disc bulge, central canal stenosis, or neural foraminal stenosis. L3/L4: At the L3-L4 level facet arthropathy ligamental thickening and disc bulge cause mild spinal canal stenosis without neural foraminal impingement L4/L5: At the L4-L5 level facet arthropathy ligamental thickening or greatest. Disc bulge is mild. Spinal canal stenosis is mild. Thickened ligament and disc bulge do abut adjacent to the right L5 nerve in the lateral recess but without perceived impingement L5/S1: Malalignment, facet arthropathy, and ligamental thickening are present at the L5-S1 level. This disease is slightly greater on the right than left. There may be some disc material abutting and displacing the right L5 nerve lateral to the infraclavicular region. MRI/Spine Lumbar (Routine) IMPRESSION: Multilevel degenerative disc disease. Mild degenerative malalignment. Spinal canal stenosis is greatest at the L4-L5 level. At the L4-L5 level there is facet arthropathy, ligamentous thickening, and disc bulge. These abut adjacent to the right L5 nerve in the lateral recess but without perceived impingement. At the L5-S1 level there is some enthesophyte from the inferior endplate and disc bulge that abuts the right L5 nerve lateral to the lateral recess but without impingement. at 0433 Reported and signed by: Lei eDlgadillo MD Electronically Signed: Lei Delgadillo MD at 4:32 EDT Tel , Service support ,
== END ==
PROVIDERS: PCP Family Medicine; Referring Provider Family Medicine; Visit Provider Family Medicine
DX: M51.26 Other intervertebral disc displacement, lumbar region (principal); M51.36 Other intervertebral disc degeneration, lumbar region; M48.061 Spinal stenosis, lumbar region without neurogenic claudication
CPT/HCPCS: 72148

== ENCOUNTER 2020-04-26 11:00 | Outpatient (RCR) | payer MEDICARE, OTHER, SELFPAY ==
--- NOTE | 2020-04-05 12:37 | HP.PTEVAL ---
Patient's Visit Information MELANIE BRISENO is a 64 year old F referred to Physical Therapy by Dr. Balbir Leach MD with a diagnosis of LUMBAR STENOSIS AND DISC BULDGE ,RIGHT HAMSTRING STRAIN. Date of Evaluation: 04/05/20 Physical Therapist: Francisco Reyes, PT, Cert MDT, OCS - Visit Plan Frequency: 2x /Week Duration: 4 Weeks Plan: PT INTERVENTIONS DLS ABD/BACK,KULDIP EX'S,POSTURAL EX'S,MODALITIES,STRENGTENING QUADS/HAMS/HIP - Subjective This 64 y/o female presents to physical therapy lumbar pain with radicular symtoms. Patient has had lumbar pain for many years. Started to develop right leg symptoms at lateral hip.Patient has lower leg pain inferior knee. MRI was done see for results. Patient aggraveting driving,lifting ,sitting. Alleviating factors walking,standing and on the moving. Patient seen chirporactor made symptoms worse. Patient c/o paratrhesia/tingling in feet. Bowel/bladder -.Coughing/sneexing -. Patient has some difficulty sleeping. Patient back paain and leg pain affects affects job demnads and housework tasks. Patient symptoms affects QOL.Patient has difficulty with steps. VOCATION: [employer]. SOCIAL: - Pain Right Hip Pain Intensity (Out of 10): 3 Pain Intensity Range: 10 Right Knee Pain Intensity (Out of 10): 5 Pain Intensity Range: 10 - Objective POSTURE: rounded shoulders head foward. GAIT: reciprocal pattern. NEURO: c/o parathesia/tingling in feet,reflexes L3-4,L4-5,L5-S1 1/3. SYMMTRIES : align. AROM: 0-130 supine knee flexion. FLEXABLITY: hams mild tight. MMT: quads/hams 4/5,hip flexion 4-/5,ankle 5/5. PALAPTION: tender knee grossly. LUMBAR ROM: flexion WFL,extension MIN loss,side glides min loss. MMT: quads/hams 4/5,hip flexion 4/5,ankle 4/5 - Special Tests L/S Slump test left side: Negative L/S Slump test right side: Negative L/S Left Straight Leg Raise: Negative L/S Right Straight Leg Raise: Negative Lumbar Standing: Flexion - Mechanical Response: No effect Lumbar Standing: Flexion - Symptoms During Testing: No effect Lumbar Standing: Flexion - Symptoms After Testing: No effect Lumbar Standing: Extension - Mechanical Response: No effect Lumbar Standing: Extension - Symptoms During Testing: Increases Lumbar Standing: Extension - Symptoms After Testing: No worse Lumbar Standing: Right Side Glides - Mechanical Response: No effect Lumbar Standing: Right Side [place] - Symptoms During Testing: No effect Lumbar Standing: Right Side [place] - Symptoms After Testing: No effect Lumbar Standing: Left Side [place] - Mechanical Response: No effect Lumbar Standing: Left Side [place] - Symptoms During Testing: No effect Lumbar Standing: Left Side [place] - Symptoms After Testing: No effect Lumbar Lying: Flexion - Mechanical Response: No effect Lumbar Lying: Flexion - Symptoms During Testing: No effect Lumbar Lying: Flexion - Symptoms After Testing: No effect Lumbar Lying: Extension - Mechanical Response: No effect Lumbar Lying: Extension - Symptoms During Testing: Centralizing Lumbar Lying: Extension - Symptoms After Testing: Better - Goals Goal 1:: Patient to be I with HEP. Goal Time Frame: 4-6 Weeks Goal 2:: Patient to improve posture/body mechanics Goal Time Frame: 4-6 Weeks Goal 3:: Patient decrease lumbar pain and radicular symptoms by 50% or > to improve QOL. Goal Time Frame: 4-6 Weeks Goal 4:: Patient to improve lumbar ROM for function of recovery. Goal Time Frame: 4-6 Weeks Goal 5:: Patient to improve back owestry score by 5 points or> to improve QOL. - Rehabilitation Potential Physical Therapy Diagnosis: Patient has lumbar pain with radicular symptoms with buldging dics with symptoms better with extension and posture correction ,walking and worse with sitting and driving and pain with effusion knee thus benifit from skilled PT Rehabilitation Potential: Good - Anticipated Interventions Patient/Client Instruction: Educate patient on: Condition, Plan of Care For the Purpose of:: To decrease pain, To increase ROM, To improve muscle performance and motor function, To improve ability to perform ADL's, To increase tolerance to activity/condition/position, To improve performance and independence with ADL's, To improve ability of physical actions for home/community/work/leisure, To improve health of tissue, To decrease soft tissue restriction, To increase flexibility/ROM, To reduce risk of recurrence, To improve ability to perform tasks related to life management Therapeutic Exercise to Include: Strength training, Flexibilty training, Passive ROM, Active ROM, Dynamic Lumbar Stabilization, Kuldip Exercises For the Purpose of:: To decrease pain, To increase ROM, To improve muscle performance and motor function, To improve ability to perform ADL's, To increase tolerance to activity/condition/position, To improve performance and independence with ADL's, To improve ability of physical actions for home/community/work/leisure, To improve health of tissue, To decrease soft tissue restriction, To increase flexibility/ROM, To improve ability to perform tasks related to life management TENS: Yes IF ES: Yes Cryotherapy (ice pack, ice massage): Yes Thermo therapy (hot pack): Yes Ultrasound (thermal/non thermal): Yes For the Purpose of:: To decrease pain, To increase ROM, To improve nutrient delivery to tissue, To increase oxygenation perfusion, To improve health of tissue, To decrease soft tissue restriction Thank you for the opportunity to evaluate your patient. For Medicare and Medicare HMO plans, please review the plan of care and approve it. It will need to be FAXED BACK to us at [phone] for Medicare purposes. For Medicare only, by signing this I certify the plan of care. Please let me know if there are questions or concerns regarding this plan of care. Physician Signature: Date:
--- NOTE | 2020-07-12 14:50 | HP.PTDCNRP_ITS ---
MELANIE BRISENO was seen in my office for initial evaluation on 04/05/20. The following Plan of Care was established for this patient: Initial Frequency: 2x /Week Initial Duration: 4 Weeks Patient/Client Instruction: Educate patient on: Condition, Plan of Care For the Purpose of:: To decrease pain, To increase ROM, To improve muscle performance and motor function, To improve ability to perform ADL's, To increase tolerance to activity/condition/position, To improve performance and independence with ADL's, To improve ability of physical actions for home/community/work/leisure, To improve health of tissue, To decrease soft tissue restriction, To increase flexibility/ROM, To reduce risk of recurrence, To improve ability to perform tasks related to life management Therapeutic Exercise to Include: Strength training, Flexibilty training, Passive ROM, Active ROM, Dynamic Lumbar Stabilization, Jaylan Exercises For the Purpose of:: To decrease pain, To increase ROM, To improve muscle performance and motor function, To improve ability to perform ADL's, To increase tolerance to activity/condition/position, To improve performance and independence with ADL's, To improve ability of physical actions for home/community/work/leisure, To improve health of tissue, To decrease soft tissue restriction, To increase flexibility/ROM, To improve ability to perform tasks related to life management TENS: Yes IF ES: Yes Cryotherapy (ice pack, ice massage): Yes Thermo therapy (hot pack): Yes Ultrasound (thermal/non thermal): Yes For the Purpose of:: To decrease pain, To increase ROM, To improve nutrient delivery to tissue, To increase oxygenation perfusion, To improve health of tiss ue, To decrease soft tissue restriction This patient was last seen in our office . Pertinent comments regarding their Physical therapy will appear below: Patient seen for PT for spinal stenosis bulding disc focusing on DLS ,jaylan ex's,and postural ex's thus is d/c At this point I will be discontinuing this patient from physical therapy. I would be happy to see this patient again in the future if found appropriate by the physician. Thank you! Francisco eRyes, PT, Cert MDT, OCS
== END 2020-04-26 19:00 | disposition home or self-care (01) ==
LOC: PT 11:00
PROVIDERS: PCP Family Medicine; Referring Provider Family Medicine; Visit Provider Family Medicine
DX: M51.26 Other intervertebral disc displacement, lumbar region (principal); M48.061 Spinal stenosis, lumbar region without neurogenic claudication; S76.311D Strain of muscle, fascia and tendon of the posterior muscle group at thigh level, right thigh, subsequent encounter
CPT/HCPCS: 97014; 97035; 97110; 97162; G0283

== ENCOUNTER → 2020-10-24 16:36 | Outpatient (CLI) | payer MEDICARE, OTHER, SELFPAY ==
[2020-10-24 18:20] LABS: Hematocrit 41.3 % (37-47); Hemoglobin 13.2 g/dL (12.0-15.0); Mean Corpuscular Hgb 29.7 pg (27.0-32.0); Mean Corpuscular Volume 92.8 fL (81-99); Mean Platelet Vol. 10.1 fl (6.2-12.0); Platelet Count 306 K/mm3 (150-450); RBC Distribution Width CV 13.2 % (11.6-14.6); Red Blood Count 4.45 M/mm3 (4.2-5.4); White Blood Count 7.2 K/mm3 (4.4-11.0)
[2020-10-24 18:49] LABS: Vitamin D,25 Hydroxy 30.4 ng/mL
[2020-10-24 18:52] LABS: ALB/GLOB Ratio 0.8 RATIO (0.9-2.4); AST(SGOT) 20 U/L (15-37); Alanine Aminotransfer ALT/SGPT 30 U/L (13-56); Albumin, Serum 3.5 g/dL (3.2-5.0); Alkaline Phosphatase 153 U/L (45-117); Anion Gap 5 (5-15); BUN 22 mg/dL (7-18); BUN/Creat Ratio 24.2 RATIO (10-20); Calcium,Total 8.5 mg/dL (8.5-10.1); Chloride 104 mmol/L (98-107); Creatinine, Serum 0.91 mg/dL (0.55-1.02); EST Glomerular Filtration Rate 66 mL/min (>60); Est Glom Filt Rate - Afr Amer 79 mL/min (>60); Globulin 4.2 g/dL (2.2-4.2); Glucose 91 mg/dL (74-106); Potassium 3.3 mmol/L (3.5-5.1); Protein, Total 7.7 g/dL (6.4-8.2); Sodium Level 142 mmol/L (136-145); T4 Free Direct 0.86 ng/dL (0.76-1.46); Thyroid Stim Hormone (TSH) 9.44 uIU/mL (0.358-3.74)
== END ==
PROVIDERS: PCP Family Medicine; Visit Provider Family Medicine
DX: F43.21 Adjustment disorder with depressed mood (principal); E03.9 Hypothyroidism, unspecified; R11.0 Nausea; E55.9 Vitamin D deficiency, unspecified
CPT/HCPCS: 36415; 80053; 82306; 84439; 84443; 85027

== ENCOUNTER → 2020-11-08 12:58 | Outpatient (CLI) | payer MEDICARE, OTHER, SELFPAY ==
--- NOTE | 2020-11-08 13:21 | MRI_ITS ---
STUDY: MRI RIGHT KNEE REASON FOR EXAM: Female, 65 years old. Pain and swelling. TECHNIQUE: Standardized fat and water weighted pulse sequences were obtained in all 3 orthogonal planes. COMPARISON: X-ray March 25, 2020 FINDINGS: Medial meniscus tear of the posterior horn adjacent to the meniscal root, series 7 images 04/05 and 05/05. There is diffuse, full thickness articular cartilage loss of the medial femorotibial compartment. There is reactive marrow edema of the medial femoral condyle and tibial plateau. Normal medial collateral ligamentous complex (MCL). Normal distal semimembranosus, gracilis and semitendinosus tendons. There is partial tear of the posterior horn of the lateral meniscus adjacent to the meniscal root, series 7 images 04/05 and 05/05. There is diffuse, less than 50% thickness articular cartilage loss of the lateral femorotibial compartment. Normal lateral femoral condyle and tibial plateau. Normal proximal tibiofibular articulation. Normal lateral collateral (fibular) ligament. Normal popliteus tendon. Normal biceps femoris tendon. There is edema with swelling and loss of definition of the of the ACL fascicles, producing a celery stick appearance, with preservation of the continuity of fibers, consistent with mucoid cystic degeneration versus partial tear. Normal posterior cruciate ligament (PCL). Normal congruent patellofemoral articulation. Normal hyaline cartilage of the patellofemoral compartment. Normal medial and lateral patellar retinaculum. Normal quadriceps tendon. Normal patellar tendon. Normal Hoffa''s fat pad. There is a moderate volume joint effusion. The soft tissues are unremarkable. The otherwise visualized osseous structures are unremarkable. MRI/Lower Ext Joint Only (Routine) IMPRESSION: Medial meniscus tear. Lateral meniscus tear. Mucoid cystic degeneration versus partial tear of the anterior cruciate ligament. Joint effusion. Electronically Signed: David Youssef MD at 16:18 EDT , Service support ,
== END ==
PROVIDERS: PCP Family Medicine; Referring Provider Family Medicine; Visit Provider Family Medicine
DX: S83.241A Other tear of medial meniscus, current injury, right knee, initial encounter (principal); S83.281A Other tear of lateral meniscus, current injury, right knee, initial encounter; X58.XXXA Exposure to other specified factors, initial encounter
CPT/HCPCS: 73721

== ENCOUNTER → 2020-12-13 10:32 | Outpatient (CLI) | payer MEDICARE, OTHER, SELFPAY ==
--- NOTE | 2020-12-13 10:48 | EKG12_ITS ---
Test Reason : PREOP Blood Pressure : / mmHG Vent. Rate : 065 BPM Atrial Rate : 065 BPM P-R Int : 132 ms QRS Dur : 082 ms QT Int : 386 ms P-R-T Axes : 020 -11 -03 degrees QTc Int : 401 ms Normal sinus rhythm Normal ECG Confirmed by EDUARDO KING, RANDY ([id number]), acquisitions editor OLAMIDE BEEBE ([id number]) on 12/15/2020 8:07:32 AM Referred By: Zaheer Rios Confirmed By:RANDY CLARK MD
[2020-12-13 11:32] LABS: Absolute Lymphocyte Count 1.83 X10^3/uL (0.83-4.51); Absolute Neutrophil Count 3.5 X10^3/uL (2.0-7.7); Basophil# 0.05 X10^3/uL; Basophil% 0.8 % (0-1); Eosinophil# 0.25 X10^3/uL; Hematocrit 40.6 % (37-47); Hemoglobin 13.1 g/dL (12.0-15.0); Lymphocyte # 1.83 X10^3/ul (0.83-4.51); Lymphocyte % 29.5 % (19-41); Mean Corp Hgb Conc 32.3 g/dL (32-36); Mean Corpuscular Hgb 29.2 pg (27.0-32.0); Mean Corpuscular Volume 90.6 fL (81-99); Mean Platelet Vol. 9.4 fl (6.2-12.0); Monocyte# 0.57 X10^3/uL; Monocyte% 9.2 % (0-10); NRBC Flagged by Analyzer 0 % (0-5); Neutrophil # 3.47 X10^3/uL (2.7-7.7); Platelet Count 313 K/mm3 (150-450); RBC Distribution Width CV 13.6 % (11.6-14.6); RBC Distribution Width SD 45.4 fl (35.1-43.9); Red Blood Count 4.48 M/mm3 (4.2-5.4); White Blood Count 6.2 K/mm3 (4.4-11.0)
[2020-12-13 11:58] LABS: Anion Gap 6 (5-15); BUN 20 mg/dL (7-18); BUN/Creat Ratio 22.1 RATIO (10-20); Calcium,Total 8.7 mg/dL (8.5-10.1); Chloride 106 mmol/L (98-107); EST Glomerular Filtration Rate 66 mL/min (>60); Est Glom Filt Rate - Afr Amer 80 mL/min (>60); Glucose 91 mg/dL (74-106); Potassium 3.5 mmol/L (3.5-5.1); Sodium Level 141 mmol/L (136-145)
== END ==
PROVIDERS: PCP Family Medicine; Referring Provider Orthopaedic Surgery; Visit Provider Orthopaedic Surgery
DX: Z11.59 Encounter for screening for other viral diseases (principal); Z01.810 Encounter for preprocedural cardiovascular examination; Z01.818 Encounter for other preprocedural examination
CPT/HCPCS: 36415; 80048; 85025; 87426; 93005; C9803

== ENCOUNTER → 2021-02-20 14:27 | Outpatient (CLI) | payer MEDICARE, OTHER, SELFPAY ==
[2021-02-20 18:42] LABS: T4 Free Direct 0.86 ng/dL (0.76-1.46)
== END ==
PROVIDERS: PCP Family Medicine; Referring Provider Family Medicine; Visit Provider Family Medicine
DX: E03.9 Hypothyroidism, unspecified (principal)
CPT/HCPCS: 36415; 84439; 84443

== ENCOUNTER → 2021-03-30 08:14 | Outpatient (CLI) | payer MEDICARE, OTHER, SELFPAY ==
[2021-03-30 10:24] LABS: Anion Gap 4 (5-15); BUN 18 mg/dL (7-18); BUN/Creat Ratio 22.5 RATIO (10-20); Calcium,Total 8.7 mg/dL (8.5-10.1); Chloride 106 mmol/L (98-107); EST Glomerular Filtration Rate 76 mL/min (>60); Est Glom Filt Rate - Afr Amer 92 mL/min (>60); Glucose 77 mg/dL (74-106); Potassium 3.5 mmol/L (3.5-5.1); Sodium Level 139 mmol/L (136-145); Thyroid Stim Hormone (TSH) 0.18 uIU/mL (0.358-3.74)
== END ==
PROVIDERS: PCP Family Medicine; Referring Provider Family Medicine; Visit Provider Family Medicine
DX: E03.9 Hypothyroidism, unspecified (principal); F43.21 Adjustment disorder with depressed mood
CPT/HCPCS: 36415; 80048; 84443

== ENCOUNTER → 2021-04-20 11:52 | Outpatient (CLI) | payer MEDICARE, OTHER, SELFPAY ==
[2021-04-20 15:37] LABS: T4 Free Direct 1.45 ng/dL (0.76-1.46); Thyroid Stim Hormone (TSH) 0.51 uIU/mL (0.358-3.74)
== END ==
PROVIDERS: PCP Family Medicine; Referring Provider Family Medicine; Visit Provider Family Medicine
DX: E03.9 Hypothyroidism, unspecified (principal)
CPT/HCPCS: 36415; 84439; 84443

== ENCOUNTER 2021-10-24 10:38 | Outpatient (CLI) | payer MEDICARE, OTHER, SELFPAY ==
[2021-10-24 12:27] LABS: Vitamin D,25 Hydroxy 40.6 ng/mL
[2021-10-24 12:50] LABS: ALB/GLOB Ratio 0.9 RATIO (0.9-2.4); AST(SGOT) 25 U/L (15-37); Alanine Aminotransfer ALT/SGPT 29 U/L (13-56); Albumin, Serum 3.4 g/dL (3.2-5.0); Alkaline Phosphatase 190 U/L (45-117); Anion Gap 7 (5-15); BUN 12 mg/dL (7-18); BUN/Creat Ratio 16.3 RATIO (10-20); Calcium,Total 8.8 mg/dL (8.5-10.1); Chloride 105 mmol/L (98-107); Cholesterol 175 mg/dL (200); Creatinine, Serum 0.74 mg/dL (0.55-1.02); EST Glomerular Filtration Rate 83 mL/min (>60); Est Glom Filt Rate - Afr Amer 101 mL/min (>60); Globulin 3.8 g/dL (2.2-4.2); Glucose 84 mg/dL (74-106); High Density Lipoprotein 65 mg/dL; Potassium 3.3 mmol/L (3.5-5.1); Protein, Total 7.2 g/dL (6.4-8.2); Sodium Level 140 mmol/L (136-145); Thyroid Stim Hormone (TSH) 0.23 uIU/mL (0.358-3.74); Triglycerides 403 mg/dL
== END 2021-10-24 23:59 | disposition home or self-care (01) ==
LOC: MFPLAB 10:41
PROVIDERS: PCP Family Medicine; Referring Provider Family Medicine; Visit Provider Family Medicine
DX: E03.9 Hypothyroidism, unspecified (principal); E55.9 Vitamin D deficiency, unspecified; K58.9 Irritable bowel syndrome, unspecified; Z13.220 Encounter for screening for lipoid disorders
CPT/HCPCS: 36415; 80053; 80061; 82306; 84443

== ENCOUNTER → 2022-05-14 | Outpatient (CLI) | payer MEDICARE, OTHER, SELFPAY ==
[2022-05-14 13:20] LABS: Thyroid Stim Hormone (TSH) 0.02 uIU/mL (0.358-3.74)
== END | disposition home or self-care (01) ==
LOC: MFPLAB 10:35
PROVIDERS: PCP Family Medicine; Referring Provider Family Medicine; Visit Provider Family Medicine
DX: E03.9 Hypothyroidism, unspecified (principal)
CPT/HCPCS: 36415; 84443

== ENCOUNTER → 2022-06-04 | Outpatient (CLI) | payer MEDICARE, OTHER, SELFPAY ==
--- NOTE | 2022-06-04 15:46 | BI_ITS ---
MAMMOGRAPHY - BILATERAL SCREENING REASON FOR EXAM: Female, 66 years old. Routine annual screening examination. PERTINENT HISTORY: Non-contributory. History of prior bilateral breast reduction surgery. TECHNIQUE: Digital bilateral breast gabriel (3D mammographic acquisition) in the CC and MLO projections. 2-D mediolateral oblique (MLO) and craniocaudad (CC) views of both breasts were obtained. CAD: Full Field Digital Mammography with Computer Added Detection was performed. COMPARISON: Comparison is made with prior study dated 11/11/2018 and 12/19/2016. FINDINGS: Breast Composition: The breasts are almost entirely fatty. There are no dominant masses or suspicious calcifications. Since prior study, the patient underwent bilateral breast reduction surgery. There has been a decrease in size of both breasts. No other significant abnormalities are identified. BI/SCRN MAMM (CAD)W/GABRIEL BILAT IMPRESSION: Stable bilateral screening mammogram. Yearly follow-up mammogram recommended. (A) ASSESSMENT CATEGORY: BIRADS Category 2: Benign. A letter regarding these results will be sent to the patient by the facility within 30 days. Approximately 10% of breast cancers are not detected by mammography. A normal mammogram should not delay biopsy of a clinically suspicious abnormality. [id number] Electronically Signed: Geoff Reyes MD at 8:02 EST ,
== END | disposition home or self-care (01) ==
LOC: OPBI 15:45
PROVIDERS: PCP Family Medicine; Visit Provider Family Medicine
DX: Z12.31 Encounter for screening mammogram for malignant neoplasm of breast (principal)
CPT/HCPCS: 77063; 77067

== ENCOUNTER 2022-10-15 11:30 | Outpatient (RCR) | payer MEDICARE, OTHER, SELFPAY ==
--- NOTE | 2022-09-17 10:53 | HP.PTEVAL ---
Patient's Visit Information MELANIE BRISENO is a 66 year old F referred to Physical Therapy by Stevie Leach MD with a diagnosis of R knee OA. Date of Evaluation: 09/17/22 Physical Therapist: Gerson Herrera DPT, OCS, CSCS - Visit Plan Frequency: 2x /Week Duration: 4-6 Weeks Plan: 2x/week for 4 weeks(gave LAQ, bike and HS stretch seated today. Please work toward core and hip and knee strength NWB to WB as tolerated and to HEP, emphasize quad stretching and activitiy modificiation for management of OA. Knee flexion ROM exrcisesGive pics for HEP as tolerated. Pt to consider pool therapy if not progressing - Subjective Having problems with R knee for a couple years. Had it cleaned out and had injections, tried braces. They help for a little bit but not long. bursas in knee feel swelled and it is hard to walk due to limited motion. Been this way for two years since polka dancing at club and tore something in the knee. Sleep is interrupted at times. L knee can hurt if walk alot also. Dr. Leach does injections, Dr Rios done injections. Doing a little pedal bike at home which helps keep it limber. Retired from [employer]. 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 All orthos(seen many) want TKA but she doesn't want that. - Pain R knee Pain Intensity (Out of 10): 0 Pain Intensity Range: 0, 6 Comment: inside distal, worse after standing long time, steps - Objective Walks slow but I into PT, less stance time on R, varus on r knee posture and overextends at heel strike. transfers I bed and chair but hard to lift R leg onto table with pain. Steps using L only and slow requiring rail. SLR R unable, L able, both painful. Tender to touch R pes anserine bursa and medial joint line. l knee anteriorly all tender but has been since a kid she says as she had an accident with that knee. LB AROM ext and flexion mod limited and SB min limited. Core 3/5 strenth ext and flexion. hip AROM WFL, strength 3 in hip flexion, abd and extension B. knee AROM 0-105 R and 0-100 L with assist. Limited self by pain. ankle AROM WFL and without pain. HS mod tight, quads min tight B. + R patellar grind and with ext with OP. - ant drawer, + bounce home. - Balance/Special Test Scores Lower Extremity Functional Score: 16 - Goals Goal 1:: 0-115 AROM B knees without pain easily Goal Time Frame: 2-4 Weeks Goal 2:: I home stretches , core and hip/knee strength program to manage OA Goal Time Frame: 2-4 Weeks Goal 3:: Pt feel 50% better in knee pain Goal Time Frame: 2-4 Weeks Goal 4:: able to walk out to barn without hesitation or increased pain Goal Time Frame: 2-4 Weeks Goal 5:: LES score 55 Goal Time Frame: 2-4 Weeks - Rehabilitation Potential Physical Therapy Diagnosis: lots of degeneration limiting funciton Rehabilitation Potential: Questionable - Anticipated Interventions Patient/Client Instruction: Educate patient on: Condition, Plan of Care For the Purpose of:: To decrease pain, To increase ROM, To improve muscle performance and motor function Therapeutic Exercise to Include: Strength training, Flexibilty training, Gait and locomotor training, In an aquatic setting, Passive ROM, Active ROM For the Purpose of:: To decrease pain, To increase ROM, To improve nutrient delivery to tissue, To improve muscle performance and motor function, To increase tolerance to activity/condition/position, To improve ability of physical actions for home/community/work/leisure, To improve gait and locomotor functions Manual Therapy Techniques to Include: Soft tissue mobilization For the Purpose of:: To decrease pain Thank you for the opportunity to evaluate your patient. For Medicare and Medicare HMO plans, please review the plan of care and approve it. It will need to be FAXED BACK to us at [phone] for Medicare purposes. For Medicare only, by signing this I certify the plan of care. Please let me know if there are questions or concerns regarding this plan of care. Physician Signature: Date:
--- NOTE | 2022-10-15 11:50 | HP.PTDCSUM ---
It has been my pleasure to treat MELANIE BRISENO referred by Dr. Balbir Leach MD, with the diagnosis of R knee OA for a total of 7 visit(s). Discharge Date: 10/15/22 Please see the following information for a summary of their discharge status. Subjective: had blood clots last week adn could not make it in. Was worse in sciatic and L leg without therapy. went to doctor last week and got medicine meloxicam which has really helped. Worried it will go back when she gets off meds. Prior to last week was getting better. Walking better and knee not as painful to /10 . Was 65% better overall but sat in hospital all week. She is walking more at home now that pain is better. Noncompliant with HEP. They are also monitorring heart since ellen was in hospital. Has not been wearing brace. It is not comfortable. R knee Pain Intensity (Out of 10): 4 % Improvement: 65 Objective/Function: 0-112 AROM R knee and 0-100 L knee, slightly improved from day one. Walking with R varus at knee and antalgia slightly today, better than day one but on meloxicam now. steps have poor forward weight shift and painful with R up as well as weak and painful descending. overall better and was improving before lina bad week last week but now is on meloxicam. She does not wish at this time to cotninue and resume her therapy as she wants her to get betteer first and get off meloxicam and then will consider coming back to therapy to complete with strengthening or possible water therapy Goal 1:: 0-115 AROM B knees without pain easily Goal Progress: Progressing Goal 2:: I home stretches , core and hip/knee strength program to manage OA Goal Progress: Progressing Goal 3:: Pt feel 50% better in knee pain Goal Progress: 65% Goal 4:: able to walk out to barn without hesitation or increased pain Goal Progress: had started Goal 5:: LES score 55 Goal Progress: Progressing Plan: d/c at patient request, should be sent back if and when time is right for strengtheing of LE to HEp or water therapy if symptoms worsen. If there are questions or concerns regarding this patient's physical therapy, please feel free to call me at [phone]. Thank you for the referral of this patient. Sincerely, Gerson Herrera, DPT, OCS, CSCS Balance/Gait/Functional tests - Balance/Special Test Scores Lower Extremity Functional Score: 30
== END 2022-10-15 13:45 | disposition home or self-care (01) ==
LOC: PT 11:30
PROVIDERS: PCP Family Medicine; Referring Provider Family Medicine; Visit Provider Family Medicine
DX: M17.11 Unilateral primary osteoarthritis, right knee (principal)
CPT/HCPCS: 97110; 97162; 97164

== ENCOUNTER → 2022-11-22 | Outpatient (CLI) | payer MEDICARE, OTHER, SELFPAY ==
[2022-11-22 10:56] LABS: Thyroid Stim Hormone (TSH) 1.14 uIU/mL (0.358-3.74)
== END | disposition home or self-care (01) ==
LOC: MFPLAB 09:22
PROVIDERS: PCP Family Medicine; Visit Provider Family Medicine
DX: E03.9 Hypothyroidism, unspecified (principal)
CPT/HCPCS: 36415; 84443

== ENCOUNTER → 2022-11-27 | Outpatient (CLI) | payer MEDICARE, OTHER, SELFPAY ==
--- NOTE | 2022-11-27 11:54 | RAD_ITS ---
EXAM: XR CHEST, 2 VIEWS CLINICAL INDICATION: SOB TECHNIQUE: Frontal and lateral views of the chest. COMPARISON: No relevant prior studies available. FINDINGS: LUNGS AND PLEURAL SPACES: Unremarkable. No consolidation or edema. No pneumothorax. No effusion. HEART: Unremarkable. Cardiac silhouette not enlarged. MEDIASTINUM: Central airways and mediastinal contour are unremarkable. BONES/JOINTS: Mild endplate sclerosis and moderate disc space narrowing at a lower thoracic level, normal alignment. SOFT TISSUES: Unremarkable. RAD/Chest PA and Lateral IMPRESSION: No acute findings in the chest. Electronically Signed: Angélica Lazar MD at 2:08 EDT ,
[2022-11-27 14:49] LABS: Erythrocyte Sedimentation Rate 17 mm/hr (0-30)
[2022-11-27 14:51] LABS: Hematocrit 41.9 % (37-47); Hemoglobin 13.7 g/dL (12.0-15.0); Mean Corp Hgb Conc 32.7 g/dL (32-36); Mean Corpuscular Hgb 30.1 pg (27.0-32.0); Mean Corpuscular Volume 92.1 fL (81-99); Mean Platelet Vol. 9.7 fl (6.2-12.0); Platelet Count 313 K/mm3 (150-450); RBC Distribution Width CV 14.7 % (11.6-14.6); RBC Distribution Width SD 50.3 fl (35.1-43.9); Red Blood Count 4.55 M/mm3 (4.2-5.4); White Blood Count 6.6 K/mm3 (4.4-11.0)
[2022-11-27 15:18] LABS: Vitamin B12 996 pg/mL (211-911); Vitamin D,25 Hydroxy 34.2 ng/mL
[2022-11-27 15:35] LABS: ALB/GLOB Ratio 0.8 RATIO (0.9-2.4); AST(SGOT) 33 U/L (15-37); Alanine Aminotransfer ALT/SGPT 40 U/L (13-56); Albumin, Serum 3.6 g/dL (3.2-5.0); Alkaline Phosphatase 175 U/L (45-117); Anion Gap 9 (5-15); BUN 24 mg/dL (7-18); BUN/Creat Ratio 27.9 RATIO (10-20); Calcium,Total 9.3 mg/dL (8.5-10.1); Chloride 102 mmol/L (98-107); Creatinine, Serum 0.86 mg/dL (0.55-1.02); EST Glomerular Filtration Rate 70 mL/min (>60); Est Glom Filt Rate - Afr Amer 84 mL/min (>60); Ferritin 105 ng/mL (8-252); Globulin 4.3 g/dL (2.2-4.2); Glucose 88 mg/dL (74-106); Iron 109 ug/dL (50-170); Potassium 3.5 mmol/L (3.5-5.1); Protein, Total 7.9 g/dL (6.4-8.2); Sodium Level 136 mmol/L (136-145)
== END | disposition home or self-care (01) ==
PROVIDERS: PCP Family Medicine; Referring Provider Family Medicine; Visit Provider Family Medicine
DX: R06.02 Shortness of breath (principal); E03.9 Hypothyroidism, unspecified; R53.83 Other fatigue; E55.9 Vitamin D deficiency, unspecified
CPT/HCPCS: 36415; 71046; 80053; 82306; 82533; 82607; 82728; 83540; 85027; 85652

== ENCOUNTER → 2022-12-04 | Outpatient (CLI) | payer MEDICARE, OTHER, SELFPAY ==
--- NOTE | 2022-12-04 11:31 | STRESSREP ---
Stress Test Report Date: 12/04/2022 Procedure: Pharmacologic stress nuclear imaging study Indications: Dyspnea Consent: Per the patient Procedure: The patient initially tried to walk on the treadmill according to the [employer] protocol. However she could only walk for 3 minutes and 7 seconds and then felt she could not keep up pace. The test was therefore changed to pharmacological stress nuclear. The patient underwent pharmacologic (Regadenoson 0.4mg ) evaluation with a peak heart rate of 94 beats per minute (62%predicted maximal heart rate) and a peak blood pressure of 122/70 mmHg. The baseline ECG demonstrated normal sinus rhythm. The peak pharmacologic ECG demonstrated no ischemic changes. [There were no cardiac dysrhythmias pretest, during pharmacologic infusion, or recovery]. [There was no complaint of chest discomfort during pharmacologic infusion or recovery]. The patient was injected with 14.2 millicuries of technetium 99m Cardiolite and subsequently rest SPECT Cardiolite nuclear imaging was obtained in the horizontal long, vertical long, and short axis views. The patient underwent pharmacologic (Regadenoson) evaluation. The patient was injected with 44.1 millicuries of technetium 99m Cardiolite and subsequently stress SPECT Cardiolite nuclear imaging was obtained in the horizontal long, vertical long, and short axis views. A gated Cardiolite study at peak stress was obtained. The examination was stopped secondary to completion of protocol. Rest and stress SPECT Cardiolite nuclear imaging status post realignment, normalization, and attenuation correction demonstrate no fixed or reversible perfusion defects. [There is end systolic thickening and brightening]. [The gated Cardiolite study demonstrates myocardial thickening and inward wall motion]. The reported LVEF is 78%. Impression: 1. Pharmacologic (Regadenoson) evaluation 2. Peak pharmacologic ECG with no ischemic changes. 3. [There were no cardiac dysrhythmias pretest, during pharmacologic infusion, or recovery]. 5. No fixed or reversible perfusion defects. 6. The gated Cardiolite study reports an LVEF of 78%. This note was generated with [employer] software. It may contain incorrect words, spelling, and punctuation that were not noted in checking the note before signing.
== END | disposition home or self-care (01) ==
LOC: CVS 06:39
PROVIDERS: PCP Family Medicine; Referring Provider Family Medicine; Visit Provider Family Medicine
DX: R06.02 Shortness of breath (principal)
CPT/HCPCS: 78452; 93017; A9500; A4216; J2785

== ENCOUNTER → 2022-12-27 | Outpatient (CLI) | payer MEDICARE, OTHER, SELFPAY ==
--- NOTE | 2022-12-27 10:05 | RAD_ITS ---
EXAMINATION: Fluoroscopic double contrast esophagram. INDICATION: DYSPHAGIA TECHNIQUE: Thick and thin oral contrast , and solid barium pill, and gas bubbles were administered to the patient. Total Fluoroscopic Time: 16 seconds AND number of Fluoroscopic Images: 7 spot images. 2 fluoroscopic cine clips. Radiation dosage index: 34.01 mGy COMPARISON: No relevant prior comparison study available FINDINGS: No masses or strictures are identified. There is no hiatal hernia. The mucosal pattern is unremarkable. Slight delay of passage of thick barium and the barium tablet from the esophagus into the stomach at the gastroesophageal junction. Ingested contents otherwise normally pass into the stomach. Reflux was not elicited. RAD/Esophagus Dual Contrast IMPRESSION: Slight delay of passage of thick barium and the barium tablet from the esophagus into the stomach at the gastroesophageal junction. Otherwise, normal examination. Electronically Signed: Willy Romero DO at 11:19 EDT ,
== END | disposition home or self-care (01) ==
LOC: RAD 10:02
PROVIDERS: PCP Family Medicine; Referring Provider Family Medicine; Visit Provider Family Medicine
DX: R13.10 Dysphagia, unspecified (principal)
CPT/HCPCS: 74221

== ENCOUNTER 2023-04-27 06:58 | Emergency (ER) | payer MEDICARE, OTHER, SELFPAY ==
[2023-04-27 06:59] VITALS: BP 159/81; PULSE 78; RESP 18; TEMP 36.4; O2SAT 96; BMI 29.8
--- NOTE | 2023-04-27 07:08 | EDS_ITS ---
HPI History of Present Illness Chief Complaint: Back Informant: patient Onset/Context/Timing Onset: Days (4 days) Narrative Narrative: Patient presents with 4-day history of back pain that feels consistent with prio r bouts of sciatica. She states that she bent down and twisted to flower buncher or picker some chicken feet and felt something pull in her left lower back. She has pain and spasms in her left lower back with pain radiating down her left leg. There was no fall or direct trauma. She has no problems with bowel or bladder control. She has never required surgery or injections in her back. [facility] Medical History (Updated 04/27/23 @ 07:[address] Jennifer Bentley MD) De Quervain's disease (radial styloid tenosynovitis) Hypothyroidism Osteoarthritis of right knee Home Medications levothyroxine 112 mcg tablet 112 mcg PO DAILY 09/16/17 [History Last Taken Unknown] ibuprofen 200 mg tablet 200 mg PO Q6H PRN 06/13/22 [History Last Taken Unknown] meloxicam 15 mg tablet 15 mg PO 06/13/22 [History Last Taken Unknown] cyclobenzaprine 10 mg tablet 10 mg PO TID PRN Muscle Spasm #20 TABLETS 04/27/23 [Rx Last Taken Unknown] oxycodone 5 mg tablet 5 mg PO Q8H PRN pain 3 days #10 tabs 04/27/23 [Rx Last Taken Unknown] prednisone 20 mg tablet 40 mg (2 x 20 mg) PO DAILY #8 tabs 04/27/23 [Rx Last Taken Unknown] Allergy/AdvReac Type Severity Reaction Status Date / Time bee venom protein (honey bee) AdvReac Swelling Verified 04/27/23 07:03 Surgical History History of hysterectomy Hx of breast reduction, elective Social History Smoking Status: Never smoker ROS ROS ED Constitutional Constitutional ED: Denies chills or fever(s) Eyes Eyes: Denies change in vision ENT ENT ED: Denies rhinorrhea or sore throat Cardiovascular Cardiovascular: Denies chest pain Respiratory/Chest Respiratory/Chest: Denies cough or dyspnea Gastrointestinal Gastrointestinal: Denies abdominal pain, nausea or vomiting Genitourinary Genitourinary ED: Denies difficulty urinating or dysuria Musculoskeletal Musculoskeletal: Reports back pain and extremity pain Integumentary Denies Abrasions or rash Neurologic Neurologic: Reports paresthesias Psychiatric Psychiatric: Denies anxiety or depression Allergic/Immunologic Allergic/Immunologic ED: Denies lip swelling or urticaria EXAM Physical Exam Const Vital Signs: 04/27/23 06:59 Temperature 97.6 F L Temperature Source Temporal Pulse Rate 78 Respiratory Rate 18 Blood Pressure 159/81 H Blood Pressure Mean 107 Pulse Ox 96 Oxygen Delivery Method Room Air Positive well nourished and well developed General Appearance ED: well developed HEENT Reports moist mucous membranes Eyes EOMs intact bilaterally Resp normal respiratory effort and clear to auscultation bilaterally Cardio regular rate and regular rhythm GI soft to palpation Back/Spine Back/Spine Narrative: Reproducible tenderness in the left low lumbar paraspinal muscles and over the left sciatic notch. Extremity normal to inspection Neuro oriented x3 Neuro Narrative: Good sensation and strength bilateral lower extremities. Patient reports paresthesias of the left foot this morning that improved with position change. Good sensation noted at this time. Strong distal pulses. Psych mental status grossly normal Skin no rashes or lesions noted MDM MDM MDM Narrative Medical decision making narrative: Patient's exam findings are consistent with sciatica. With no trauma or injury to her back I do not feel imaging is needed at this time. She has a prescription for Mobic to flower buncher or picker at the pharmacy. I will add a prescription for oxycodone, Flexeril, and prednisone. Return instructions were provided. Discharge Plan Triage Chief Complaint: Back ED Provider: Jennifer Bentley Dx/Rx/DC Orders Clinical Impression: Sciatica Instructions: ED Sciatica Prescriptions: New oxycodone 5 mg tablet 5 mg PO Q8H PRN (Reason: pain) 3 Days Qty: 10 0RF cyclobenzaprine 10 mg tablet 10 mg PO TID PRN (Reason: Muscle Spasm) Qty: 20 0RF prednisone 20 mg tablet 40 mg PO DAILY Qty: 8 0RF No Action meloxicam 15 mg tablet 15 mg PO ibuprofen 200 mg tablet 200 mg PO Q6H PRN levothyroxine 112 MCG tablet 112 mcg PO DAILY Primary Care Provider: Balbir Leach Referrals: Balbir Leach MD [Primary Care Provider] - 3-5 Days if not improving Disposition Disposition: Home, Self Care
[2023-04-27] MEDS: cycloBENZAPRine HCl 10 MG Tablet PO (07:13)
[2023-04-27] MEDS: predniSONE 20 MG Tablet 40 MG PO (07:13)
[2023-04-27] MEDS: oxyCODONE 5 MG Tablet PO (07:13)
== END 2023-04-27 07:20 | disposition home or self-care (01) ==
LOC: ED 07:18
PROVIDERS: Emergency Provider Emergency Medicine; PCP Family Medicine; Visit Provider Emergency Medicine
DX: M54.30 Sciatica, unspecified side (principal)
CPT/HCPCS: 99283

== ENCOUNTER → 2023-07-24 | Outpatient (CLI) | payer MEDICARE, OTHER, SELFPAY ==
--- NOTE | 2023-07-24 12:37 | BD_ITS ---
STUDY: DUAL ENERGY X-RAY ABSORPTIOMETRY / DXA REASON FOR EXAM: Female, 67 years old. [id number] TECHNIQUE: Bone Mineral Density (BMD) measurements of lumbar spine and bilateral hips were obtained. COMPARISON: Comparison is made with prior study dated December 24, 2018. FINDINGS: Lumbar Spine (L1-L4): g/cm2 (0.968) / T-score (-0.6) / Z-score (1.5) Findings are suggestive of normal bone density with a low fracture risk. Left Femur Total: g/cm2 (0.868) / T-score (-0.6) / Z-score (0.9) Left Femoral Neck: g/cm2 (0.720) / T-score (-1.2) / Z-score (0.6) Right Femur Total: g/cm2 (0.804) / T-score (-1.1) / Z-score (0.4) Right Femoral Neck: g/cm2 (0.734) / T-score (-1.0) / Z-score (0.7) The T-Scores on the most recent prior examination were: Lumbar Spine (L1-L4): There has been worsening of bone density since the previous examination. Left Femur Total: which represents a worsening of 15.7%. Right Femur Total: which represents a worsening of 19.4%. BD/Dexa Bone Density Study IMPRESSION: The patient is considered osteopenic as outlined below according to World [place] Organization (WHO) criteria with a low fracture risk. There has been worsening of bone density since the previous examination. Reference Information: The T-score is the number of standard deviations above or below the standard which is normal for young adults at their peak bone mineral density. The World Health Organization (WHO) interprets the T-scores as follows: Above -1 Normal bone density Between -1 and -2.5 Osteopenia Equal to / or below -2.5 Osteoporosis As a practical clinical guideline, osteopenia may be graded as follows: Mild -1 through -1.5 Moderate -1.6 through -2.0 Severe -2.1 through -2.4 The Z-score is the number of standard deviations above or below age-matched controls. A Z-score of less than -1.5 would be considered abnormal. References: 1. NIH Osteoporosis and Related Bone Diseases www osteo.org 2. International Society for Clinical Densitometry www iscd.org 3. National Osteoporosis Foundation www nof.org Electronically Signed: Geoff Reyes MD at 9:31 EST ,
== END | disposition home or self-care (01) ==
LOC: OPBD 12:32
PROVIDERS: PCP Family Medicine; Referring Provider Family Medicine; Visit Provider Family Medicine
DX: Z78.0 Asymptomatic menopausal state (principal)
CPT/HCPCS: 77080

== ENCOUNTER → 2023-11-06 | Outpatient (CLI) | payer MEDICARE, OTHER, SELFPAY ==
--- NOTE | 2023-11-06 15:36 | RAD_ITS ---
STUDY: X-RAY - RIGHT KNEE REASON FOR EXAM: Female, 68 years old. pain -- original e order states bilateral knee, right knee pain TECHNIQUE: 4 view(s) of the knee. COMPARISON: None. FINDINGS: Normal visualized distal femur. Normal visualized proximal tibia and fibula. Normal proximal tibiofibular articulation. There is severe degenerative arthrosis of the medial femorotibial compartment with severe joint space narrowing. There is mild degenerative arthrosis of the lateral femorotibial compartment. There is mild degenerative arthrosis of the patellofemoral articulation. There is a moderate volume joint effusion. The soft tissue structures are unremarkable. RAD/Knee 4 or More Views IMPRESSION: Degenerative arthrosis. Electronically Signed: Macho Larson MD at 23:55 EDT ,
--- NOTE | 2023-11-06 15:36 | RAD_ITS ---
STUDY: X-RAY - LUMBOSACRAL SPINE REASON FOR EXAM: Female, 68 years old. bilateral leg pain. hx ddd. TECHNIQUE: 5 view(s) of the lumbosacral spine were obtained. COMPARISON: MR lumbar spine March 28, 2020 FINDINGS: Oblique projections negative for pars defects. Sacroiliac joints normal. Normal lumbar lordosis. Mild dextroconvex scoliosis. There is normal alignment of the vertebrae. Ossification anterior longitudinal ligament possible disc protrusion anteriorly at L5-S1. Normal vertebral bodies and endplates. Disc space narrowing L2-3. Limited range of motion. No arminda instability but sensitivity/specificity limited due to limited range of motion.. Normal bilateral sacral ala, sacroiliac joints, and visualized sacrum. Normal visualized soft tissue structures. RAD/L/S Spine w Bend Min 6 Vw IMPRESSION: Limited range of motion. Degenerative disc disease as above. MRI would be more sensitive if clinically warranted. Electronically Signed: George Ramirez MD at 21:02 EDT ,
--- NOTE | 2023-11-06 15:39 | RAD_ITS ---
STUDY: X-RAY - LEFT KNEE REASON FOR EXAM: Female, 68 years old. pain TECHNIQUE: 4 view(s) of the knee. COMPARISON: None. FINDINGS: Normal visualized distal femur. Normal visualized proximal tibia and fibula. Normal proximal tibiofibular articulation. There is severe degenerative arthrosis of the medial femorotibial compartment with severe joint space narrowing. There is mild degenerative arthrosis of the lateral femorotibial compartment. There is mild degenerative arthrosis of the patellofemoral articulation. There is a moderate volume joint effusion. The soft tissue structures are unremarkable. RAD/Knee 4 or More Views IMPRESSION: Degenerative arthrosis. Electronically Signed: Macho Larson MD at 23:55 EDT ,
== END | disposition home or self-care (01) ==
LOC: MTRAD 15:36
PROVIDERS: PCP Family Medicine; Referring Provider Family Medicine; Visit Provider Family Medicine
DX: M51.36 Other intervertebral disc degeneration, lumbar region (principal); M79.604 Pain in right leg
CPT/HCPCS: 72114; 73564

== ENCOUNTER → 2024-01-27 | Outpatient (CLI) | payer MEDICARE, SELFPAY ==
[2024-01-27 12:52] LABS: Hematocrit 37.2 % (37-47); Hemoglobin 12.2 g/dL (12.0-15.0); Mean Corp Hgb Conc 32.8 g/dL (32-36); Mean Corpuscular Hgb 28.8 pg (27.0-32.0); Mean Corpuscular Volume 87.7 fL (81-99); Mean Platelet Vol. 9.2 fl (6.2-12.0); Platelet Count 269 K/mm3 (150-450); RBC Distribution Width CV 13.2 % (11.6-14.6); RBC Distribution Width SD 42.3 fl (35.1-43.9); Red Blood Count 4.24 M/mm3 (4.2-5.4); White Blood Count 7.7 K/mm3 (4.4-11.0)
[2024-01-27 13:02] LABS: Vitamin B12 562 pg/mL (211-911); Vitamin D,25 Hydroxy 89.1 ng/mL
[2024-01-27 13:45] LABS: ALB/GLOB Ratio 0.9 RATIO (0.9-2.4); AST(SGOT) 23 U/L (15-37); Alanine Aminotransfer ALT/SGPT 21 U/L (13-56); Albumin, Serum 3.3 g/dL (3.2-5.0); Alkaline Phosphatase 205 U/L (45-117); Anion Gap 9 (5-15); BUN 23 mg/dL (7-18); BUN/Creat Ratio 20.7 RATIO (10-20); Chloride 107 mmol/L (98-107); Creatinine, Serum 1.11 mg/dL (0.55-1.02); EST Glomerular Filtration Rate 52 mL/min (>60); Est Glom Filt Rate - Afr Amer 62 mL/min (>60); Globulin 3.5 g/dL (2.2-4.2); Glucose 111 mg/dL (74-106); Potassium 3.8 mmol/L (3.5-5.1); Protein, Total 6.8 g/dL (6.4-8.2); Sodium Level 139 mmol/L (136-145); T4 Free Direct 1.48 ng/dL (0.76-1.46)
== END | disposition home or self-care (01) ==
PROVIDERS: PCP Nurse Practitioner Family; Visit Provider Nurse Practitioner Family
DX: E03.9 Hypothyroidism, unspecified (principal); E55.9 Vitamin D deficiency, unspecified; R60.0 Localized edema
CPT/HCPCS: 36415; 80053; 82306; 82607; 84439; 84443; 85027

== ENCOUNTER → 2024-02-04 | Outpatient (CLI) | payer MEDICARE, OTHER, SELFPAY ==
--- NOTE | 2024-02-04 12:35 | US_ITS ---
INDICATION: MASS of RT UPPER EXT AREA OF PALP LUMP EXAMINATION: Right upper extremity soft tissue COMPARISON: No relevant prior comparison study available TECHNIQUE: Routine imaging with grayscale and color Doppler imaging in the extremity soft tissues. FINDINGS: Limited images obtained in the area of clinical concern/palpable lump right upper extremity. Localized heterogeneous structure in the region measures 7.2 x 2.0 x 3.9 cm, with fairly well-defined margins. Minimal internal vascularity. US/Ext Non Vasc Limited/Soft Tiss IMPRESSION: Localized mass in the region of concern. MRI may be helpful for further characterization. Electronically Signed: Adelaide Balderas MD at 0:01 EDT ,
== END | disposition home or self-care (01) ==
LOC: US 12:34
PROVIDERS: PCP Nurse Practitioner Family; Referring Provider Nurse Practitioner Family; Visit Provider Nurse Practitioner Family
DX: R22.31 Localized swelling, mass and lump, right upper limb (principal)
CPT/HCPCS: 76882

== ENCOUNTER → 2024-02-05 | Outpatient (CLI) | payer MEDICARE, SELFPAY | END | disposition home or self-care (01) | PROVIDERS: PCP Nurse Practitioner Family; Referring Provider Nurse Practitioner Family; Visit Provider Nurse Practitioner Family | DX: R06.00 Dyspnea, unspecified (principal) | CPT/HCPCS: 94060; 94726; 94729 ==

== ENCOUNTER → 2024-03-15 | Outpatient (CLI) | payer MEDICARE, SELFPAY ==
--- NOTE | 2024-03-15 11:10 | MRI_ITS ---
STUDY: MRI RIGHT SHOULDER REASON FOR EXAM: Female, 68 years old. LOCALIZED SWELLING MASS AND LUMP MARKED W BB TECHNIQUE: Standardized fat and water weighted pulse sequences were obtained in all 3 orthogonal planes. Following the intravenous administration of 14 cc Clariscan contrast, additional postcontrast imaging was obtained. COMPARISON: Right shoulder MRI dated 03/06/2019. 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 There are no abnormal nodular internal components. There are no aggressive features. There is a moderate grade partial thickness articular surface tear of the distal supraspinatus tendon, overall measuring 4 mm in length (coronal T2 series 7 images 19-20) and 4 mm in width (sagittal T2 series 8 image 8). Normal infraspinatus tendon. Normal subscapularis tendon. Normal teres minor tendon. There is mild atrophy and fatty infiltration of the supraspinatus muscle. Normal infraspinatus muscle. Normal subscapularis muscle. Normal teres minor muscle. There is a small glenohumeral joint effusion. Normal humeral head and visualized proximal humerus. Normal biceps labral complex. Normal intracapsular long biceps tendon. Normal labrum. Normal capsulo-ligamentous complex. Normal rotator interval. There is hypertrophic acromioclavicular arthrosis, with inferior osteophyte formation, with mild effacement of the supraspinatus myotendinous junction (coronal T2 series 7 image 19). There is a Type II morphology (curved), with a neutral orientation. There is trace subacromial-subdeltoid bursal fluid. Normal visualized coracohumeral and coracoacromial ligaments. Normal quadrilateral space. Normal axillary space. Normal trapezius muscle. Following IV contrast administration, there is no abnormal enhancement. 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 No aggressive features. 4 x 4 mm moderate grade partial thickness articular surface tear of the distal supraspinatus tendon. Mild atrophy and fatty infiltration of the supraspinatus muscle. Hypertrophic acromioclavicular arthrosis, with inferior osteophyte formation, with mild effacement of the supraspinatus myotendinous junction. Small glenohumeral joint effusion. No abnormal enhancement. Electronically Signed: Aaron Kramer MD at 15:57 EDT ,
[2024-03-15 12:14] LABS: CREATININE FINGERSTICK < 1.0 mg/dL (0.55-1.02); EGFR FINGERSTICK > 60.0000 mL/min (>60)
== END | disposition home or self-care (01) ==
PROVIDERS: PCP Nurse Practitioner Family; Referring Provider Nurse Practitioner Family; Visit Provider Nurse Practitioner Family
DX: R22.31 Localized swelling, mass and lump, right upper limb (principal)
CPT/HCPCS: 73223; A9575

== ENCOUNTER → 2024-03-16 | Outpatient (CLI) | payer MEDICARE, SELFPAY ==
[2024-03-16 17:31] LABS: Thyroid Stim Hormone (TSH) 0.017 uIU/mL (0.358-3.740)
== END | disposition home or self-care (01) ==
LOC: VSLAB 14:38
PROVIDERS: PCP Nurse Practitioner Family; Visit Provider Nurse Practitioner Family
DX: E03.9 Hypothyroidism, unspecified (principal)
CPT/HCPCS: 36415; 84439; 84443

== ENCOUNTER → 2024-03-23 | Outpatient (CLI) | payer MEDICARE, OTHER, SELFPAY ==
--- NOTE | 2024-03-23 09:49 | ART_ITS ---
Reason For Study: PAIN Procedure A bilateral lower extremity continuous wave Doppler with analog waveform analysis,segmental pressures,and ankle brachial indexes without exercise. Left Segmental Pressures Left brachial= 145mmHg. Left posterior tibial artery = 154mmHg. Left dorsalis pedis artery = 148mmHg. The left posterior tibial artery waveforms are triphasic. The left dorsalis pedis waveforms are triphasic. Right Segmental Pressures Right brachial= 145mmHg. Right posterior tibial artery = 159mmHg. Right dorsalis pedis artery = 152mmHg. The right posterior tibial artery waveforms are triphasic. The right dorsalis pedis waveforms are triphasic. Indices The right resting ankle brachial index is 1.10. The right ankle brachial index by the posterior tibial artery is 1.10. The right ankle brachial index by the dorsalis pedis is 1.05. The left resting ankle brachial index is 1.06. The left ankle brachial index by the posterior tibial artery is 1.06. The left ankle brachial index by the dorsalis pedis is 1.02. VL/Lower Ext Art Exam w/o Exercis Interpretation Summary Triphasic Doppler waveforms are noted at ankle level bilaterally. Pulse-volume recordings appear satisfactory at low thigh, calf, and ankle level bilaterally. Resting ankle-bra chial indices are normal bilaterally. There is no evidence of significant arterial occlusive disease in the lower ext remities bilaterally. Ordering Physician: Stephania Gonzalez Referring Physician: STEPHANIA GONZALEZ CARDIOLOGY CLINICAL CONSULTANT-C Performed By: Sharlene Liang RVT, RDCS
== END | disposition home or self-care (01) ==
LOC: CVS 09:43
PROVIDERS: PCP Nurse Practitioner Family; Referring Provider Nurse Practitioner Family; Visit Provider Nurse Practitioner Family
DX: I73.9 Peripheral vascular disease, unspecified (principal)
CPT/HCPCS: 93923

== ENCOUNTER → 2024-04-22 | Outpatient (CLI) | payer MEDICARE, OTHER, SELFPAY ==
[2024-04-22 13:21] LABS: T4 Free Direct 1.28 ng/dL (0.76-1.46); Thyroid Stim Hormone (TSH) 0.281 uIU/mL (0.358-3.740)
== END | disposition home or self-care (01) ==
PROVIDERS: PCP Nurse Practitioner Family; Visit Provider Nurse Practitioner Family
DX: E03.9 Hypothyroidism, unspecified (principal)
CPT/HCPCS: 36415; 84439; 84443

== ENCOUNTER → 2024-06-08 | Outpatient (CLI) | payer MEDICARE, OTHER, SELFPAY ==
[2024-06-08 12:47] LABS: Absolute Lymphocyte Count 1.66 X10^3/uL (0.83-4.51); Absolute Neutrophil Count 3.6 X10^3/uL (2.0-7.7); Basophil# 0.06 X10^3/uL; Eosinophil# 0.41 X10^3/uL; Eosinophils% 6.6 % (0-5); Hematocrit 39.1 % (37-47); Hemoglobin 12.9 g/dL (12.0-15.0); Lymphocyte # 1.66 X10^3/ul (0.83-4.51); Lymphocyte % 26.9 % (19-41); Mean Corpuscular Hgb 29.9 pg (27.0-32.0); Mean Corpuscular Volume 90.5 fL (81-99); Mean Platelet Vol. 8.9 fl (6.2-12.0); Monocyte# 0.46 X10^3/uL; Monocyte% 7.4 % (0-10); NRBC Flagged by Analyzer 0 % (0-5); Neutrophil # 3.58 X10^3/uL (2.7-7.7); Neutrophil % 57.9 % (47-70); Platelet Count 313 K/mm3 (150-450); RBC Distribution Width CV 12.9 % (11.6-14.6); RBC Distribution Width SD 42.5 fl (35.1-43.9); Red Blood Count 4.32 M/mm3 (4.2-5.4); White Blood Count 6.2 K/mm3 (4.4-11.0)
[2024-06-08 12:52] LABS: Vitamin D,25 Hydroxy 78.7 ng/mL
[2024-06-08 13:00] LABS: ALB/GLOB Ratio 0.9 RATIO (0.9-2.4); AST(SGOT) 27 U/L (15-37); Alanine Aminotransfer ALT/SGPT 25 U/L (13-56); Albumin, Serum 3.4 g/dL (3.2-5.0); Alkaline Phosphatase 196 U/L (45-117); Anion Gap 7 (5-15); BUN 21 mg/dL (7-18); BUN/Creat Ratio 22.2 RATIO (10-20); Calcium,Total 9.2 mg/dL (8.5-10.1); Chloride 105 mmol/L (98-107); Creatinine, Serum 0.95 mg/dL (0.55-1.02); EST Glomerular Filtration Rate 62 mL/min (>60); Est Glom Filt Rate - Afr Amer 75 mL/min (>60); Globulin 3.9 g/dL (2.2-4.2); Glucose 101 mg/dL (74-106); Potassium 3.8 mmol/L (3.5-5.1); Protein, Total 7.3 g/dL (6.4-8.2); Sodium Level 141 mmol/L (136-145); T4 Free Direct 1.16 ng/dL (0.76-1.46); Thyroid Stim Hormone (TSH) 0.731 uIU/mL (0.358-3.740)
== END | disposition home or self-care (01) ==
PROVIDERS: PCP Nurse Practitioner Family; Visit Provider Nurse Practitioner Family
DX: R03.0 Elevated blood-pressure reading, without diagnosis of hypertension (principal); E03.9 Hypothyroidism, unspecified; E55.9 Vitamin D deficiency, unspecified
CPT/HCPCS: 36415; 80053; 82306; 84439; 84443; 85025

== ENCOUNTER → 2024-08-04 | Outpatient (CLI) | payer MEDICARE, OTHER, SELFPAY ==
[2024-08-04 18:14] LABS: T4 Free Direct 1.06 ng/dL (0.76-1.46)
== END | disposition home or self-care (01) ==
LOC: VSLAB 15:23
PROVIDERS: PCP Nurse Practitioner Family; Visit Provider Nurse Practitioner Family
DX: E03.9 Hypothyroidism, unspecified (principal)
CPT/HCPCS: 36415; 84439; 84443

== ENCOUNTER → 2024-09-01 | Outpatient (CLI) | payer MEDICARE, OTHER, SELFPAY ==
--- NOTE | 2024-09-01 15:40 | RAD_ITS ---
PROCEDURE: Right wrist radiographs, three views REASON FOR EXAM: Pain TECHNIQUE: Three views of the right wrist were obtained. COMPARISON: None. FINDINGS: Three views of the right wrist were obtained. Bones are osteopenic. The included distal radius and ulna are intact. Mild radiocarpal joint narrowing. No displaced carpal or metacarpal fracture. RAD/Wrist min 3 Views IMPRESSION: Osteopenia. No acute bony abnormality of the right wrist. Mild radiocarpal joint narrowing. If there is persistent pain or clinical concern, MRI evaluation may be consider ed. Reading Location: [facility]
--- NOTE | 2024-09-01 15:40 | RAD_ITS ---
PROCEDURE: Thoracic spine radiographs, two views REASON FOR EXAM: Back pain TECHNIQUE: AP and lateral views of the thoracic spine were obtained. COMPARISON: None. FINDINGS: Two views of the thoracic spine were obtained. Bones are osteopenic. The lungs are grossly clear, although evaluation is limited on this study. Mild leftward curvature of the lower thoracic/upper lumbar spine on the AP view. Mild elevation right hemidiaphragm. No acute thoracic vertebral body fracture. Moderate multilevel degenerative disc disease in the thoracic spine. RAD/Thoracic Spine 2 Views IMPRESSION: Osteopenia. No acute bony abnormality of the thoracic spine. Moderate multilevel degenerative disc and facet disease in the thoracic spine. If there is persistent pain or clinical concern, short-term follow-up thoracic spine MRI may be considered. Reading Location: [facility]
--- NOTE | 2024-09-01 15:41 | RAD_ITS ---
PROCEDURE: Lumbar spine radiographs, two views REASON FOR EXAM: Low back pain TECHNIQUE: AP and lateral views of the lumbar spine were obtained. COMPARISON: None. FINDINGS: Two views of the lumbar spine were obtained. Bones are osteopenic. Included portions of the pelvis and SI joints are intact. Mild degenerative changes in the hip joints. There is mild rightward curvature of the mid lumbar spine on the AP view. No acute fracture in the lumbar spine. Grade 1 retrolisthesis of L2 relative to L3. Moderate multilevel degenerative disc and facet disease in the lumbar spine, to a severe degree at the L2-3 level. Minimal chronic appearing superior endplate depression of L3. RAD/Lumbar Spine 2 or 3 Views IMPRESSION: Osteopenia. No definite acute bony abnormality of the lumbar spine. Minimal c hronic appearing superior endplate depression of L3. Moderate multilevel degenerative disc and facet disease, to a severe degree at the L2-3 level. If there is persistent pain or clinical concern, short-term follow-up MRI evalu ation may be considered. Reading Location: [facility]
== END | disposition home or self-care (01) ==
PROVIDERS: PCP Nurse Practitioner Family; Referring Provider Nurse Practitioner Family; Visit Provider Nurse Practitioner Family
DX: M54.50 Low back pain, unspecified (principal); M25.531 Pain in right wrist
CPT/HCPCS: 72070; 72100; 73110

== ENCOUNTER → 2025-02-03 | Outpatient (CLI) | payer MEDICARE, OTHER, SELFPAY ==
[2025-02-03 12:37] LABS: Hematocrit 37.9 % (37-47); Hemoglobin 12.7 g/dL (12.0-15.0); Immature Granulocytes Count 0.010 X10^3/uL (0.0-0.0); Mean Corp Hgb Conc 33.5 g/dL (32-36); Mean Corpuscular Volume 90.5 fL (81-99); Mean Platelet Vol. 9.7 fl (6.2-12.0); NRBC Flagged by Analyzer 0 % (0-5); Platelet Count 281 K/mm3 (150-450); RBC Distribution Width CV 13.5 % (11.6-14.6); RBC Distribution Width SD 44.7 fl (35.1-43.9); Red Blood Count 4.19 M/mm3 (4.2-5.4); White Blood Count 6.4 K/mm3 (4.4-11.0)
[2025-02-03 13:17] LABS: AST(SGOT) 39 U/L (<=31); Alanine Aminotransfer ALT/SGPT 24 U/L (<=34); Albumin, Serum 4.3 g/dL (3.4-4.8); Alkaline Phosphatase 227 U/L (35-104); Anion Gap 12 (5-15); BUN 21 mg/dL (4-19); BUN/Creat Ratio 20.8 RATIO (10-20); Calcium,Total 9.4 mg/dL (7.6-11.0); Carbon Dioxide 25.5 mmol/L (21.0-32.0); Chloride 103 mmol/L (98-108); Globulin 2.9 g/dL (2.2-4.2); Glucose 103 mg/dL (70-99); Potassium 4.3 mmol/L (3.3-5.1); Vitamin D,25 Hydroxy 95.1 ng/mL (30-100)
--- OUTSIDE RECORDS SUMMARY | 2025-02-03 20:17 | XMS RPT_ITS | CCD ---
Author Organization [facility] Care Team Providers Care Insurance Specialist Name Role Phone Dr. Balbir Leach Primary Care Provider [phone] Dr. Balbir Leach Referring Provider MD Shiva Gunn Attending Provider [phone] Balbir Leach Primary Care Provider [phone] Dr. Balbir Leach Referring Provider Dr. Balbir Leach Other Provider Dr. Laurita Montero Attending Provider Jasmyne Leach MD Primary Care Provider Carlos SECTION GANG, Stephania Unavailable Carlos SECTION GANG, Stephania Unavailable Carlos SECTION GANG, Stephania Unavailable Carlos VSC, Stephania Referring Unavailabl e Carlos VSC, Stephania Primary Care Unavailabl e Carlos VSC, Stephania Attending Unavailabl e Marilyn Rodriguez Referring Unavailable Carlos VSC, Stephania Primary Care Unavailabl e Carlos VSC, Stephania Attending Unavailabl e Obinna Soto Attending Unavailable Carlos VSC, Stephania Primary Care Unavailabl e Carlos VSC, Stephania Referring Unavailabl e Luz Marina Khalil Attending Unavailable Carlos VSC, Stephania Referring Unavailabl e Carlos VSC, Stephania Primary Care Unavailabl e Jorge L Sanchez Attending Unavailable Carlos VSC, Stephania Primary Care Unavailcaitlin e Jasmyne Leach Referring Unavailable Jasmyne Leach Primary Care Unavailable Jasmyne Leach Attending Unavailable Carlos VSC, Stephania Primary Care Unavailabl e Carlos VSC, Stephania Referring Unavailabl e Carlos VSC, Stephania Attending Unavailabl e Carlos VSC, Stephania Attending Unavailabl e Carlos VSC, Stephania Primary Care Unavailabl e Carlos VSC, Stephania Primary Care Unavailabl e Carlos VSC, Stephania Attending Unavailabl e Carlos VSC, Stephania Primary Care Unavailabl e Carlos VSC, Stephania Attending Unavailabl e Carlos VSC, Stephania Primary Care Unavailabl e Carlos VSC, Stephania Referring Unavailabl e Carlos VSC, Stephania Attending Unavailabl e Carlos VSC, Stephania Primary Care Unavailabl e Carlos VSC, Stephania Attending Unavailabl e Carlos VSC, Stephania Referring Unavailabl e Carlos VSC, Stephania Primary Care Unavailabl e Carlos VSC, Stephania Attending Unavailabl e Carlos VSC, Stephania Primary Care Unavailabl e Carlos VSC, Stephania Referring Unavailabl e Carlos VSC, Stephania Attending Unavailabl e Carlos VSC, Stephania Primary Care Unavailabl e Carlos VSC, Stephania Referring Unavailabl e Carlos VSC, Stephania Attending Unavailabl e Carlos VSC, Stephania Attending Unavailabl e Carlos SECTION GANG-C, Stephania Primary Care Provider Carlos SECTION GANG-C, Stephania Attending Provider Carlos SECTION GANG-C, Stephania Referring Provider GUNJAN HECTOR Attending Unavailabl JASMYNE Valdes Primary Care Unavailabl e BAN, MEGAN Referring Unavailable MEGAN RENEE Attending Unavailable JASMYNE LEACH Primary Care Unavailabl e JASMYNE LEACH Primary Care Unavailabl e SELF Referring Unavailable DEMOND BARNARD Attending Unavailable JASMYNE LEACH Primary Care Unavailabl e BAN, MEGAN Attending Unavailable BAN, MEGAN Attending Unavailable JASMYNE LEACH Primary Care Unavailabl e BAN, MEGAN Referring Unavailable Allergies Allergy Classification Reported Allergen(s) Allergy Type Date of Onset Reaction(s) Facility (10 sources) bee venom protein (honey bee) Propensity to adverse reactions [address] [facility] (9 sources) Bee pollen; Translations: [BEE POLLEN] Drug Allergy 5 [facility] (1 source) bee venom protein (honey bee) Drug allergy (disorder) [facility] Repository Medications Current Medications Medication Drug Class(es) Dates Sig (Normalized) Sig (Original) cyclobenzaprine hydrochloride 10 mg oral tablet (3 sources) Muscle Relaxant Start: 04-27-2023 take 1 tablet by mouth three times daily as needed for muscle spasms Cyclobenzaprine 10 mg tablet Active 10 mg PO THREE TIMES A DAY as needed for Muscle Spasm April 27, 2023 12:00am estradiol 0.1 mg/ml vaginal cream (5 sources) Estrogen Start: 12-14-2024 estradiol (ESTRACE) 0.01 % (0.1 mg/gram) vaginal cream Indications: Vaginal Atrophy Apply 1 pea-sized amount of cream into the lower vagina with fingertip every night for 2 weeks then 3 times weekly. 127.5 g 3 12/14/2024 Active End: 02-24-2024 estradiol (LUAN, VIVELLE-DO T) 0.025 mg/24 hr Apply 1 Patch as directed. 02/24/2024 Discontinued (Course of therapy completed) ibuprofen 200 mg oral tablet (9 sources) Nonsteroidal Anti-inflammatory Drug Start: 06-13-2022 take 1 tablet by mouth every six hours as needed Ibuprofen 200 mg tablet Active 200 mg PO EVERY 6 HOURS as needed June 13, 2022 1:00am levothyroxine sodium 0.112 mg oral tablet (18 sources) l-Thyroxine Start: 09-16-2017 take 1 tablet by mouth once daily Levothyroxine 112 MCG tablet Active 112 ug PO DAILY September 16, 2017 12:00am Start: 10-17-2009 levothyroxine sodium(SYNTHROID 112 MCG TAB) one tablet 6 days per week 0 10/17/2009 Active magnesium hydroxide 80 mg/ml oral suspension (2 sources) magnesium hydrox james (MILK OF MAGNESIA) 400 mg/5 mL suspension Take by mouth once daily as needed. Active meloxicam 15 mg oral tablet (9 sources) Nonsteroidal Anti-inflammatory Drug Start: 06-13-20 Meloxicam 15 mg tablet Active 15 mg PO June 13, 2022 1:00am multivitamins(DAILY MULTIVITAMIN TAB) (8 sources) Start: 08-04-19 09 multivitamins(DAILY MULTIVITAMIN TAB) Take one(1) tablet daily. 0 08/04/2008 Active OTC NUTRITIONAL SUPPLEMENT (4 sources) take 2 tablets by mouth three times daily at mealtime OTC NUTRITIONAL SUPPLEMENT Take 2 tablets by mouth three times a day. Micaela- with meals Active oxyCODONE hydrochloride 5 mg oral tablet (3 sources) Opioid Agonist Start: 04-27-20 take 1 tablet by mouth every eight hours as needed for pain Oxycodone 5 mg tablet Active 5 mg PO Q8H as needed for pain 10 April 27, 2023 predniSONE 20 mg oral tablet (3 sources) Start: 04-27-20 take 2 tablets by mouth once daily Prednisone 20 mg tablet Active 40 mg PO DAILY April 27, 2023 12:00am Start: 04-27-2023 take 40 mg by mouth once daily Prednisone Active 40 MG PO DAILY April 27, 2023 12:00am sulfamethoxazole 800 mg / trimethoprim 160 mg oral tablet (1 source) Dihydrofolate Reductase Inhibitor Antibacterial, Sulfonamide Antimicrobial Start: 12-17-2024 End: 12-20-2024 take 1 tablet by mouth twice daily sulfamethoxazole-trimethoprim (BACTRIM DS) 800-160 mg per tablet Take 1 tablet by mouth two times a day for 3 days. 6 tablet 12/17/2024 12/20/2024 Active Completed/Discontinued Medications Medication Drug Class(es) Dates Sig (Normalized) Sig (Original) acetaminophen 325 mg / HYDROcodone bitartrate 5 mg oral tablet (1 source) Opioid Agonist Start: 02-25-2019 End: 02-24-2024 HYDROcodone-acetami nophen (NORCO) 5-325 mg per tablet 02/25/2019 02/24/2024 Discontinued (Course of therapy completed) [id number] NC ORAL (5 sources) End: 12-14-2024 take 3 tablets by mouth once daily at bedtime NZLTTLF-[id number]-[id number] INC ORAL Take 3 tablets by mouth daily at bedtime. 12/14/2024 Discontinued (Course of therapy completed) take 3 tablets by mo uth once daily at bedtime DRRSCRJ-GIEUIINTE-RNWQ ORAL Take 3 table ts by mouth daily at bedtime. Active docusate sodium 100 mg oral capsule (1 source) Start: 01-15-2019 End: 02-24-2024 take 1 capsule by mouth twice daily docusate sodium (COLACE) 100 mg capsule Take 1 capsule by mouth twice daily. 14 capsule 01/15/2019 02/24/2024 Discontinued (Course of therapy completed) ondansetron 4 mg disintegrating oral tablet (1 source) Serotonin-3 Receptor Antagonist Start: 01-15-2019 End: 02-24-2024 take 1 tablet by mouth every eight hours as needed ondansetron orally disintegrating (ZOFRAN ODT) 4 mg tab(s) ER Go-Pack Take 1 tablet by mouth every 8 hours as needed. 15 tablet 01/15/2019 02/24/2024 Discontinued (Course of therapy completed) triamcinolone acetonide 40 mg/ml injectable suspension (1 source) Corticosteroid Start: 03-26-2019 End: 03-26-2019 Kenalog (triamcinolone acetonide) 40 mg/mL suspension for injection Discontinued 80 MG INTRAARTIC ONCE 2 March 26, 2019 8:58am March 26, 2019 9:44am Problems Active Problems Problem Classification Problem Date Documented Date Episodic/Chronic Anal and rectal conditions (2 sources) Disorder of rectum; Translations: [Rectal prolapse] Onset: 01-04-2025 08-17-2024 Episodic Cardiac dysrhythmias (10 sources) Palpitations; Translations: [Palpitations] 09-17-2017 Episodic Complications of surgical procedures or medical care (9 sources) Postoperative hypothyroidism; Translations: [Postprocedural hypothyroidism] 01-15-2024 Chronic Genitourinary symptoms and ill-defined conditions (12 sources) Urgent desire to urinate; Translations: [Urgency of urination] Onset: 04-28-2008 Resolved: 05-18-2008 05-18-2008 Episodic Hemorrhoids (8 sources) Bleeding internal hemorrhoids; Translations: [Other hemorrhoids] Onset: 08-17-2024 02-24-2024 Episodic Intestinal obstruction without hernia (4 sources) Intussusception of intestine; Translations: [Intussusception] Onset: 12-14-2024 12-14-2024 Episodic Menopausal disorders (18 sources) Menopausal symptom; Translations: [Menopausal and female climacteric states] Onset: 06-15-2008 06-15-2008 Chronic Osteoarthritis (8 sources) Osteoarthritis of right knee joint; Translations: [Unilateral primary osteoarthritis, right knee] 06-13-2022 Chronic Other circulatory disease (1 source) Elevated blood-pressure reading, without diagnosis of hypertension; Translations: [Elevated blood-pressure reading, without diagnosis of hypertension] Onset: 07-10-2024 Episodic Other connective tissue disease (8 sources) Radial styloid tenosynovitis; Translations: [Radial styloid tenosynovitis [de Quervain]] 06-13-2022 Episodic Other endocrine disorders (8 sources) Primary hyperparathyroidism; Translations: [Primary hyperparathyroidism] 01-15-2024 Chronic Other non-traumatic joint disorders (10 sources) Pain in unspecified knee; Translations: [Acute knee pain] 03-26-2020 Episodic Other non-traumatic joint disorders (1 source) Pain in right wrist; Translations: [Pain in right wrist] Onset: 09-01-2024 Episodic Peripheral and visceral atherosclerosis (1 source) Peripheral vascular disease, unspecified; Translations: [Peripheral vascular disease, unspecified] Onset: 04-14-2024 Chronic Prolapse of female genital organs (14 sources) Prolapse of female genital organs; Translations: [Female genital prolapse, unspecified] Onset: 12-14-2024 02-24-2024 Chronic Spondylosis; intervertebral disc disorders; other back problems (1 source) Other intervertebral disc degeneration, lumbar region; Translations: [Other intervertebral disc degeneration, lumbar region] Onset: 11-12-2023 Chronic Spondylosis; intervertebral disc disorders; other back problems (3 sources) Sciatica; Translations: [Sciatica, unspecified side] 05-05-2023 Episodic Thyroid disorders (10 sources) Hypothyroidism; Translations: [Hypothyroidism, unspecified] Onset: 08-22-2024 06-13-2022 Chronic Unclassified (2 sources) Low back pain, unspecified; Translations: [Low back pain, unspecified] Onset: 08-04-2024 Past or Other Problems Problem Classification Problem Date Documented Da te Episodic/Chronic Benign neoplasm of uterus (8 sources) Uterine leiomyoma; Translations: [Leiomyoma of uterus, unspecified] Onset: 04-28-2008 Resolved: 05-18-2008 05-18-2008 Episodic Calculus of urinary tract (8 sources) Kidney stone; Translations: [Calculus of kidney] Onset: 06-12-2005 01-15-2024 Episodic Genitourinary symptoms and ill-defined conditions (17 sources) Female stress incontinence; Translations: [Stress incontinence (female) (male)] Onset: 04-28-2008 Resolved: 05-18-2008 05-18-2008 Chronic Menstrual disorders (20 sources) Excessive and frequent menstruation; Translations: [Excessive and frequent menstruation with regular cycle] Onset: 04-28-2008 Resolved: 05-18-2008 05-18-2008 Chronic Miscellaneous mental health disorders (8 sources) Disorders of initiating and maintaining sleep; Translations: [Adjustment insomnia] Onset: 06-15-2008 06-15-2008 Episodic Other female genital disorders (8 sources) Dyspareunia; Translations: [Dyspareunia] Onset: 04-28-2008 Resolved: 10-17-2009 10-17-2009 Chronic Other lower respiratory disease (1 source) Dyspnea, unspecified; Translations: [Dyspnea, unspecified] Onset: 05-03-2024 Episodic Other skin disorders (1 source) Localized swelling, mass and lump, right upper limb; Translations: [Localized swelling, mass and lump, right upper limb] Onset: 05-04-2024 Episodic Results Test Name Value Interpretation Reference Range Facility [facility] 01-17-2025 CNPN Refill (WHQ) LIANNE BRISENO ([id number]) 1955 F Date Time Provider Department 01/17/25 GUNJAN HECTOR WHJair During your visit today, we recorded the following information about you: Tone Huang 01/17/2025 4:33 PM Signed Patient: Lianne Briseno : 1955 Provider: Gunjan Hector MD Caller Phone #: [phone] (home) [phone] (cell) Reason for call: Patent requesting refill for estradiol (ESTRACE) 0.01 % (0.1 mg/gram) vaginal cream. Pharmacy: [id number] - [place], [place] Message routed to nurse triage Upcoming Appointments: Thank you Renetta Morris RN 01/18/2025 9:24 AM Signed Called patient. She would like her estrogen prescription sent to [facility] pharmacy in center instead of her mailservice pharmacy. Medication pending with preferred pharmacy SONIA Colvin Natasha, RN 01/18/2025 9:24 AM Signed Addended by: RENETTA SLAVADOR on: 01/18/2025 09:24 AM Modules accepted: Orders Allergies As of Date: 01/17/2025 Noted Allergy Reaction BEE POLLEN 04/16/2005 Date Reviewed: 01/05/2025 Reviewed by: Megan Renee MD - Fully Assessed Reason for Visit: Refill Request [94] Visit Diagnosis:Vaginal atrophy [N95.2] Prescriptions as of 01/18/2025 - magnesium hydroxide (MILK OF MAGNESIA) 400 mg/5 mL suspension Take by mouth once daily as needed. - OTC NUTRITIONAL SUPPLEMENT Take 2 tablets by mouth three times a day. Micaela- with meals - estradiol (ESTRACE) 0.01 % (0.1 mg/gram) vaginal cream Apply 1 pea-sized amount of cream into the lower vagina with fingertip every night for 2 weeks then 3 times weekly. - levothyroxine sodium(SYNTHROID 112 MCG TAB) one tablet 6 days per week - multivitamins(DAILY MULTIVITAMIN TAB) Take one(1) tablet daily. Problem List As Of Date 01/17/2025 Noted Resolved POSTSURGICAL HYPOTHYROID [E89.0] PRIMARY HYPERPARATHYROIDISM [E21.0] CALCULUS OF KIDNEY [N20.0] 06/12/2005 UTERINE LEIOMYOMA NOS [D25.9] 04/28/2008 05/18/2008 EXCESSIVE MENSTRUATION [N92.0] 04/28/2008 05/18/2008 IRREGULAR MENSTRUATION [N92.6] 04/28/2008 05/18/2008 DYSMENORRHEA [N94.6] 04/28/2008 05/18/2008 Dyspareunia [IMT3308] 04/28/2008 10/17/2009 FEMALE STRESS INCONTINENCE [N39.3] 04/28/2008 05/18/2008 URGE INCONTINENCE [N39.41] 04/28/2008 05/18/2008 URGENCY OF URINATION [R39.15] 04/28/2008 05/18/2008 SYMPTOMATIC FEMALE CLIMACTERIC STATE [N95.1] 06/15/2008 ATROPHIC VAGINITIS [N95.2] 06/15/2008 TRANSIENT INSOMNIA [F51.02] 06/15/2008 Encounter Status:Closed by TONE HUANG on 01/17/25 [facility] CNOVon 01-04-2025 CNOV Office Visit ([facility] ) LIANNE BRISENO ([id number]) 1955 F Date Time Provider Department 01/04/25 10:40 AM MEGAN RENEE [facility] During your visit today, we recorded the following information about you: Pulse Blood pressure Weight Height 60/minute 145/78 73.9 kg 1.575 m Megan Renee MD 01/05/2025 3:59 PM Signed COLORECTAL SURGERY January 04, 2025 Lianne Briseno Chief Complaint: follow up/ rectal prolapse History of Present Illness: Lianne Briseno is a 69 year old female who presents to the office for a follow up evaluation of rectal prolapse. Prior A/P from 10/26/24: Lianne Briseno is a 68 year old female w/ PMHx of ERLIN/BSO w/Urethral Sling w/mesh (Apr 2008) vaginal prolapse who presents to the office for a follow up evaluation of hemorrhoids. She was last seen in the office on 08/17/24. She is here for continued prolapsing hemorrhoids and hemorrhoidal bleeding. She has an appointment with In December to discuss pelvic organ prolapse to determine if she would be a candidate for perineal repair or if she would require abdominal approach for the repair of internal rectal intussusception in office after examination Plan: -S/p hemorrhoid banding RA and RACHEL -Follow up with Dr. Hector in December -C after Dr. Hector appointment A/P from Dr Hector on 12/14/24: 1) Stage III Cystocele, Stage III Uterovaginal Prolapse, Stage III Rectocele: - The patient was informed what type and stage of pelvic organ prolapse they presented with today at clinic. They were given a thorough explanation in clinic that included informational pamphlets with visual aids. - Options were dicussed today including observation, behavioral modifications (i.e., PFPT, pessary insertion) and surgical procedures. - Discussed surgical options including a combined abdominal procedure with Dr. Renee. Patient prefers surgery in May. - Patient was given informational pamphlets to read about these surgical procedures in-depth at home. 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 2) Possible Intussusception - An XR defecography was ordered today to assess possible intussusception. The patient was informed that this test needs to be completed at a facility. 3) Urinary Frequency - Will obtain UDS prior to surgery to see if a bladder sling will need to be placed OR to confirm the type of urinary incontinence the patient has before deciding on a treatment plan. - UDS (bladder testing) was ordered today to better assess the patient's urinary incontinence. The patient was informed to come to testing with their bladder full (but not overly full). The patient was given an informational pamphlet about this procedure to read at home. 4) Leukocytes in urine - UA today was abnormal and showed small leukocytes. Therefore, I am going to send the patient's urine for culture. If the results come back abnormal, [facility] and [facility]. 5) Vaginal Atrophy - The patient was informed to start vaginal estrogen. Rx Estrace ordered today. - They were informed to apply 1 pea-sized amount to the vagina with fingertip every night for 2 weeks then 3 times weekly. The R/B/A of using vaginal estrogen were discussed in-depth with the patient. They were given an informational handout with visual aids on how to apply the cream. - The patient was informed if the vaginal estrogen costs more than $50, to decline the medication and call the office for an alternate prescription at compounding pharmacy. RTC for UDS Interval updates: Rectal discomfort mostly resolved since RBL. Taking milk of magnesia PRN. Having BM every few days. Not straining most of the time. Trying to drink 6 cups of water daily. Denies splinting or rocking to have BM. No blood. Reports last colonoscopy 5 years ago was normal- records not available in EMR. PSH: uterovaginal prolapse and midline cystocele s/p ERLIN/BSO with CASSI from sigmoid to uterus and urethral sling w/ mesh (Dr Niecy Story, 2008) PAST MEDICAL HISTORY Diagnosis Date Calculus of kidney Dysmenorrhea Resolved Dyspareunia Resolved Dysthymic disorder Depression (non-psychotic) Excessive or frequent menstruation Heavy periods resolved Postsurgical hypothyroidism Premenstrual tension syndromes PMS resolved Primary hyperparathyroidism (HCC) Symptomatic menopausal or female climacteric states Unspecified urinary incontinence Resolved PAST SURGICAL HISTORY Procedure Laterality Date COLONOSCOPY FLX DX W/COLLJ SPEC WHEN PFRMD 2001 Colonoscopy PAST SURGICAL HISTORY OF L knee PAST SURGICAL HISTORY OF Parathyroidectomy THYROIDECTOMY TOTAL/COMPLETE R. side TOTAL ABDOMINAL HYSTERECT W/WO RMVL TUBE OVARY 05/03/2008 Hysterectomy, ERLIN./bso, bladder repair (more content not included)... Normal [facility] Bacteria Ur Culton 5 Bacteria identified Cx Nom (U) ORGANISM ID: 1 >=100,000 CFU/ml Klebsiella pneumoniae ORGANISM ID: 1 (KLEBSIELLA PNEUMONIAE) -- ANTIBIOTIC INTERPRETATION FAMILIA STATUS REFERENCE RANGE -- Ampicillin R F Cefazolin S <=4 F Susceptible 0-16 , Intermediate <0 or >16 , Resistant >16 For uncomplicated urinary tract infections, cefazolin results can be used to predict susceptibility or resistance to cephalexin. Ceftriaxone S <=1 F Susceptible <=1 , Intermediate >1 , Resistant >=4 Cefepime S <=1 F Susceptible <=2 , Susceptible-Dose Dependent >2 , Resistant >=16 Ertapenem S <=0.5 F Susceptible <=0.5 , Intermediate >.5 , Resistant >1 Meropenem S <=0.25 F Susceptible <=1 , Intermediate >1 , Resistant >2 Ampicillin/Sulbact S 4 F Susceptible <=8 , Intermediate >8 , Resistant >16 Piperacillin/Tazobac S <=4 F Susceptible <16 , Susceptible-Dose Dependent >=16 , Resistant >=32 Gentamicin S <=1 F Susceptible <=2 , Intermediate >2 , Resistant >=8 Tobramycin S <=1 F Susceptible <4 , Intermediate >=4 , Resistant >=8 Trimeth sulfameth S <=20 F Susceptible <=40 , Resistant >40 Ciprofloxacin S <=0.25 F Susceptible <0.5 , Intermediate >=.5 , Resistant >=1 Nitrofurantoin I 64 F Susceptible <=32 , Intermediate >32 , Resistant >64 Abnormal [facility] Comment on above: Performed By: #### 6 30-4 ####[facility] [id number] [address] [place] OF [facility] CNOVon 12-14-2024 CNOV Office Visit ([facility] ) LIANNE BRISENO ([id number]) 1955 F Date Time Provider Department 12/14/24 1:30 PM GUNJAN HECTOR During your visit today, we recorded the following information about you: Blood pressure Weight 114/76 74.3 kg Gunjan Hector MD 12/14/2024 5:48 PM Signed Female Pelvic Medicine AND Reconstructive Surgery Consult CHIEF COMPLAINT: Lianne Briseno is a 69 year old female who presents for consultation requested by Dr. Renee for an opinion regarding Pelvic Organ Prolapse . 08/17/2024 Last Visit from Referring Provider (Megan Renee): Assessment Assessment and Plan: Lianne Briseno is a 68 year old female with pelvic organ prolapse (cystocele and rectocele), grade II-III prolapsing internal hemorrhoids and likely internal rectal intussusception. Fiber Discussed RBL of internal hemorrhoids if still symptomatic on bowel regimen Referral to Dr. Hector for pelvic organ prolapse to determine if she would be a candidate for perineal repair or if she would require abdominal approach. If the latter, would plan on colonoscopy, defo and possibly manometry prior to surgery. - == HISTORY OF PRESENT ILLNESS: Denies symptoms of UTI. She felt symptoms a few weeks ago, but they went away. Endorses prolapse symptoms for a few years. Reports muscle pulling away from bone in legs. Denies rectal prolapse. Hx of TVH. Endorses straining with bowel movements. She started taking enzymes to help with food digestion. Hemorrhoid surgery has also helped. 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 Yes, somewhat bothersome (2) Usually experience heaviness or dullness in the pelvic area? No (0) Usually have a bulge or something falling out that you can see or feel in your vaginal area? Yes, somewhat bothersome (2) Ever have to push on the vagina or around the rectum to have or complete a bowel movement? No (0) Usually experience a feeling of incomplete bladder emptying? Yes, somewhat bothersome (2) Ever have to push up on a bulge in the vaginal area with your fingers to start or complete urination? No (0) Feel you need to strain too hard to have a bowel movement? Yes, somewhat bothersome (2) Feel you have not completely emptied your bowels at the end of a bowel movement? Yes, somewhat bothersome (2) Usually lose stool beyond your control if your stool is well formed? No (0) Usually lose stool beyond your control if your stool is loose? Yes, somewhat bothersome (2) Usually lose gas from the rectum beyond your control? Yes, somewhat bothersome (2) Usually have pain when you pass your stool? No (0) Experience a strong sense of urgency and have to nails to the bathroom to have a bowel movement? Yes, somewhat bothersome (2) Does part of your bowel ever pass through the rectum and bulge outside during or after a bowel movement? No (0) Usually experience frequent urination? Yes, moderately bothersome (3), nocturia Usually experience urine leakage associated with a feeling of urgency, that is, a strong sensation of needing to go to the bathroom? No (0) Usually experience urine leakage related to coughing, sneezing or laughing? No (0) Usually experience small amounts of urine leakage (that is, drops)? No (0) Usually experience difficulty emptying your bladder? Yes, moderately bothersome (3) Usually experience pain or discomfort in the lower abdomen or genital region? No (0) Do you have pain associated with your prolapse (not pressure or fullness) No PAST SURGICAL HISTORY Procedure Laterality Date COLONOSCOPY FLX DX W/COLLJ SPEC WHEN PFRMD 2001 Colonoscopy PAST SURGICAL HISTORY OF L knee PAST SURGICAL HISTORY OF Parathyroidectomy THYROIDECTOMY TOTAL/COMPLETE R. side TOTAL ABDOMINAL HYSTERECT W/WO RMVL TUBE OVARY 05/03/2008 Hysterectomy, ERLIN./bso, bladder repair PAST MEDICAL HISTORY Diagnosis Date Calculus of kidney Dysmenorrhea Resolved Dyspareunia Resolved Dysthymic disorder Depression (non-psychotic) Excessive or frequent menstruation Heavy periods resolved Postsurgical hypothyroidism Premenstrual tension syndromes PMS resolved Primary hyperparathyroidism (HCC) Symptomatic menopausal or female climacteric states Unspecified urinary incontinence Resolved Family History Problem Relation Age of Onset Diabetes Fathe (more content not included)... Normal [facility] UA DIP, URINE (POC)on 2024 BILIRUBIN UA (POCT) Negative Negative [facility] CLARITY UA (POCT) Clear [facility] COLOR UA (POCT) Yellow [facility] GLUCOSE UA (POCT) Negative Negative mg/dL [facility] Hemoglobin Ql (U) Trace-intact Abnormal Negative [facility] Interpretation and review of laboratory results Abnormal [facility] KETONE UA (POCT) Negative Negative mg/dL [facility] LEUKOCYTES UA (POCT) Small Abnormal Negative [facility] NITRITE UA (POCT) Positive Abnormal Negative [facility] PH UA (POCT) 5.5 4.5 - 8.0 [facility] Protein Ql (U) Negative Negative mg/dL [facility] SPECIFIC GRAVITY UA (POCT) 1.02 1.005 - 1.030 [facility] UROBILINOGEN UA (POCT) 0.2 Kylie l E.U./dL [facility] Location:[address], [address] [place] [address] POINT OF CARE [facility] CNOVon 10-26-2024 CNOV Office Visit ([facility] ) LIANNE BRISENO ([id number]) 1955 F Date Time Provider Department 10/26/24 1:20 PM MEGAN RENEE [facility] During your visit today, we recorded the following information about you: Temperature Pulse Blood pressure Weight 97.1 degrees 75/minute 119/75 76.2 kg Height 1.575 m Megan Renee MD 10/26/2024 1:51 PM Signed COLORECTAL SURGERY October 26, 2024 Lianne Briseno Recording using iWant[employer] software for draft documentation of the visit was discussed with the patient/authorized farm loan representative; all questions welcomed and answered. Patient/authorized farm loan representative agreed to proceed Chief Complaint: follow up/ hemorrhoids History of Present Illness: Lianne Briseno is a 68 year old female who presents to the office for a follow up evaluation of hemorrhoids. She was last seen in the office on 08/17/24. She has an appointment with Dr. Hector in December. Found to have rectocele, cystocele, Grade II RA hemorrhoid, internal rectal intussusception in office after examination Prior A/P from 08/17/24: Lianne Briseno is a 68 year old female with pelvic organ prolapse (cystocele and rectocele), grade II-III prolapsing internal hemorrhoids and likely internal rectal intussusception. Fiber Discussed RBL of internal hemorrhoids if still symptomatic on bowel regimen Referral to Dr. Hector for pelvic organ prolapse to determine if she would be a candidate for perineal repair or if she would require abdominal approach. If the latter, would plan on colonoscopy, defo and possibly manometry prior to surgery. -- Current symptoms: Taking puralax every day, no fecal incontinence. Still has constipation and is training to have a bowel movement. She reports having prolapsed hemorrhoids that she occasionally has to push back in. Some rectal bleeding several times a week. Taking psyllium PAST MEDICAL HISTORY Diagnosis Date Calculus of kidney Dysmenorrhea Resolved Dyspareunia Resolved Dysthymic disorder Depression (non-psychotic) Excessive or frequent menstruation Heavy periods resolved Postsurgical hypothyroidism Premenstrual tension syndromes PMS resolved Primary hyperparathyroidism (HCC) Symptomatic menopausal or female climacteric states Unspecified urinary incontinence Resolved PAST SURGICAL HISTORY Procedure Laterality Date COLONOSCOPY FLX DX W/COLLJ SPEC WHEN PFRMD 2001 Colonoscopy PAST SURGICAL HISTORY OF L knee PAST SURGICAL HISTORY OF Parathyroidectomy THYROIDECTOMY TOTAL/COMPLETE R. side TOTAL ABDOMINAL HYSTERECT W/WO RMVL TUBE OVARY 05/03/2008 Hysterectomy, ERLIN./bso, bladder repair Current Outpatient Medications Medication Sig Dispense Refill [id number] ORAL Take 3 tablets by mouth daily at bedtime. levothyroxine sodium(SYNTHROID 112 MCG TAB) one tablet 6 days per week 0 multivitamins(DAILY MULTIVITAMIN TAB) Take one(1) tablet daily. 0 No current facility-administered medications for this visit. ALLERGIES Allergen Reactions Bee Pollen FAMILY HISTORY Problem Relation Age of Onset Diabetes Father Social History Tobacco Use Smoking status: Former Current packs/day: 0.00 Average packs/day: 0.5 packs/day for 10.0 years (5.0 ttl pk-yrs) Types: Cigarettes Start date: 09/21/1997 Quit date: 09/22/2007 Years since quittin.1 Smokeless tobacco: Never Vaping Use Vaping status: Never Used Substance Use Topics Alcohol use: Yes Comment: very rare Drug use: No Physical Exam: BP 119/75 (BP Site: Right Arm, BP Position: Sitting) Pulse 75 Temp 36.2 ?C (97.1 ?F) Ht 157.5 cm (5' 2) Wt 76.2 kg (168 lb) LMP 04/07/2008 BMI 30.73 kg/m? General Appearance: Well appearing, alert, in no acute distress, well-hydrated, well nourished. Abdomen: soft, non-tender, non distended The sensitive examination was discussed with the Patient or Patient's Authorized Clinical Microbiologist. As applicable, any other physician, advance practice provider, medical student, or other health professional student that will be observing or involved in the sensitive examination for educational or training purposes was discussed with the Patient or Authorized Clinical Microbiologist. The Patient or Authorized Clinical Microbiologist has agreed to proceed with the sensitive examination. (Sensitive examination includes inspection and/or palpation of the breasts, pelvis, prostate and anorectal regions) Toggle Press Operator present: Yes Osiris Anorectal: External exam reveals normal external hemorrhoids. Digital rectal exam reveals normal/weak tone no mass UNIVERSAL PROTOCOL / SAFETY CHECKLIST Procedure to be Performed: rubber band ligation internal hemorrhoids Sign In: A Moment of CARE was completed. Appropriate PPE (Personal Protective Equipment) worn by all providers involved with the procedure. Special equipment utilized rubber b (more content not included)... Normal [facility] L/S Spine Bending Flex/[place] 09-15-2024 L/S Spine Bending Flex/Ext [facility] [address] [place] [address] L/S Spine Bending Flex/Ext MR#: [id number] Acct: [id number] Name: FINNLIANNE Rep #: [id number] : 1955 F 68 From: Beltran Olvera MD PCP: Stephania Rodriguez [facility], SECTION GANG-C Status: DEP AMB Study: L/S Spine Bending Flex/Ext Date of Exam: 09/15 Exam# [id number] Ordering Dr: Luz Marina Khalil EXAM: XR Lumbosacral Spine Flexion/Extension Only, 2 or 3 Views CLINICAL INDICATION: CHRONIC PAIN TECHNIQUE: Lateral flexion/extension views of the lumbar spine and sacrum. COMPARISON: No relevant prior studies available. FINDINGS: VERTEBRAE: Multilevel endplate degenerative changes and disc disease of the lumbar spine, most prominent at L2-3. Moderate facet arthropathy of L4-S1. No acute fracture. Normal sagittal alignment. No instability. SACRUM/COCCYX: Unremarkable as visualized. No acute fracture. DISC SPACES: See above. SOFT TISSUES: Unremarkable. RAD/L/S Spine Bending Flex/Ext IMPRESSION: Degenerative changes as above. No acute fracture. No significant dynamic instability. Reading [facility] CC: [facility] SECTION GANG-C Stephania Rodriguez; HI Arce Wire Splicer: Signed Normal [facility] Orthopedic Visit Reporton Orthopedic Visit Report [facility] [address] [place] [address] OFFICE VISIT Date of Service: 09/15/24 MR#: [id number] Acct: [id number] Name: LIANNE BRISENO ROBIN Rep #: [id number] : 1955 Provider: HI Arce Age/Sex: 68/F Location: [email or web address] Status: Signed Intake Vital Signs 07/24/23 12:33 09/15/24 13:51 Height 5 ft 2 in 5 ft 2 in Weight: 169 lb 4 oz BMI 30.9 Intake Visit Reasons: LUMBAR SPINE Chief Complaint: Lumbar Spine Pain Accompanied by: Self Is patient in pain?: Yes (worse in the morning) Pain scale (1-10): 7 Allergies bee venom protein (honey bee) Adverse Reaction (Verified 09/15/24 13:53) Swelling Medications ???Medication ???Instructions ???Recorded ???Confirmed ???Type ibuprofen 200 mg tablet 200 mg PO Q6H PRN 12/08/22 03/12/2 5 History levothyroxine 100 mcg tablet 100 mcg PO 09/15/24 09/15/24 Histo ry meloxicam 15 mg tablet 15 mg PO PRN 09/15/24 09/15/24 His tory Have you fallen in the past year?: No PFSH Medical History De Quervain's disease (radial styloid tenosynovitis) Osteoarthritis of right knee Hypothyroidism Surgical History History of hysterectomy Hx of breast reduction, elective Social History Smoking Status: Never smoker HPI LUMBAR SPINE Details: This documentation accurately reflects the service provided and the decisions made by me, HI Arce 09/15/24 0378. Part of today???s visit was documented by Irene Cantrell ATC, acting as scribe. LIANNE BRISENO is a 68 year old F here today NEW patient for lumbar spine pain. Patient states the pain is much worse when she gets out of bed in the morning. The back has been bothering her for about 6-8 months and she denies any injury that caused the pain. Says that some days are worse than others. She states it really bothers her when she gets in/out of bed, bending over. She describes pain that goes through her rib cage in the back and it will take her breath away at times. She denies any radiating pain, numbness or tingling into the legs. She states her legs are weak but it is coming from her knees and it is something she has been dealing with for a couple years now. She denies any injections, physical therapy or surgery. She does workout at the [employer] and they have given her exercises to do specifically for the back. She is doing hamstring stretches and feels that has been helping. She states she has had sciatic nerve problems in the past and it will randomly bother her. She takes Tylenol/Ibuprofen for the pain. Says that she has pes anserine bursitis she has had injections and knee scope for this issue but still has this pain in her legs. Tylenol and ibuprofen does seem to help her get to sleep. She denies any issues walking issues due to the pain. Ortho Exam General General: Yes no acute distress Neurologic: Yes alert and Yes oriented x3 Spine SPINE TESTING CERVICAL THORACIC LUMBAR Musculoskeletal Strength 0=absent - 5=normal Details: Neurological exam of the lower extremities shows 5x5 power. Normal sensations across all dermatomes. No hyperreflexia. No midline or paraspinal tenderness. Coding Level of Care Code Off vis,new,level 4 Diagnoses Degeneration of intervertebral disc of lumbar region with discogenic back pain M51.360 Disc-related pain type: discogenic back pain only Spondylolisthesis at L2-L3 level M43.16 Assessment and Plan Assessment and Plan (1) Degenerative disc disease, lumbar: Status: Acute Qualifiers: Disc-related pain type: discogenic back pain only Qualified Code(s): M51.360 - Other intervertebral disc degeneration, lumbar region with discogenic back pain only (2) Spondylolisthesis at L2-L3 level: Status: Acute Orders: Orders L/S Spine Bending Flex/Ext Today M54.50 - Low back pain, unspecified Plan Obtained and reviewed flexion and extension x-rays and in the clinic. Independent interpretation of the x-rays was performed. X-rays show multilevel disc height loss throughout the lumbar spine, most severe at L2-3. There is a retrolisthesis of L2 on L3. There is vacuum phenomenon. No MRI. Explained imaging findings in detail. Recommended an MRI to further assess the degenerative changes. Although she has lumbar spine pain she says that this issue does not stop her from doing things that she wishes to do. 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 She feels like the MRI is not completely necessary due to the fact she does not wish to have any surgery on the back. Discussed injections with jamie (more content not included)... Normal [facility] Lumbar Spine 2 or 3 Viewson 09-01-2024 Lumbar Spine 2 or 3 Views [facility] [address] [place], [place] [address] Lumbar Spine 2 or 3 Views MR#: [id number] Acct: [id number] Name: LIANNE BRISENO Rep #: [id number] : 1955 F 68 From: Papo Loera i, DO PCP: KYLER Ferguson, SECTION GANG-C Status: REG CLI Study: Lumbar Spine 2 or 3 Views Date of Exam: Exam# [id number] Ordering Dr: Stephania Rodriguez SECTION GANG-Tricia PROCEDURE: Lumbar spine radiographs, two views REASON FOR EXAM: Low back pain TECHNIQUE: AP and lateral views of the lumbar spine were obtained. COMPARISON: None. FINDINGS: Two views of the lumbar spine were obtained. Bones are osteopenic. Included portions of the pelvis and SI joints are intact. Mild degenerative changes in the hip joints. There is mild rightward curvature of the mid lumbar spine on the AP view. No acute fracture in the lumbar spine. Grade 1 retrolisthesis of L2 relative to L3. Moderate multilevel degenerative disc and facet disease in the lumbar spine, to a severe degree at the L2-3 level. Minimal chronic appearing superior endplate depression of L3. RAD/Lumbar Spine 2 or 3 Views IMPRESSION: Osteopenia. No definite acute bony abnormality of the lumbar spine. Minimal chronic appearing superior endplate depression of L3. Moderate multilevel degenerative disc and facet disease, to a severe degree at the L2-3 level. If there is persistent pain or clinical concern, short-term follow-up MRI evaluation may be considered. Reading [facility] CC: [facility] SECTION GANG-C Stephania Rodriguez Wire Splicer: Signed Normal [facility] Thoracic Spine 2 Viewson Thoracic Spine 2 Views [facility] [address] [place], [place] [id number] Thoracic Spine 2 Views MR#: [id number] Acct: [id number] Name: LIANNE BRISENO ROBIN Rep #: [id number] : 1955 F 68 From: Papo Loera i, DO PCP: KYLER Ferguson, SECTION GANG-C Status: REG CLI Study: Thoracic Spine 2 Views Date of Exam: 09/01/24 Exam# [id number] Ordering Dr: Stephania Rodriguez SECTION GANG-Tricia PROCEDURE: Thoracic spine radiographs, two views REASON FOR EXAM: Back pain TECHNIQUE: AP and lateral views of the thoracic spine were obtained. COMPARISON: None. FINDINGS: Two views of the thoracic spine were obtained. Bones are osteopenic. The lungs are grossly clear, although evaluation is limited on this study. Mild leftward curvature of the lower thoracic/upper lumbar spine on the AP view. Mild elevation right hemidiaphragm. No acute thoracic vertebral body fracture. Moderate multilevel degenerative disc disease in the thoracic spine. RAD/Thoracic Spine 2 Views IMPRESSION: Osteopenia. No acute bony abnormality of the thoracic spine. Moderate multilevel degenerative disc and facet disease in the thoracic spine. If there is persistent pain or clinical concern, short-term follow-up thoracic spine MRI may be considered. Reading Location: [facility] CC: [facility] SECTION GANG-C Stephania Rodriguez Wire Splicer: Signed Normal [facility] Wrist min 3 Viewson 09-01-19 Wrist min 3 Views [facility] [address] [place] [id number] Wrist min 3 Views MR#: [id number] Acct: [id number] Name: LIANNE BRISENO ROBIN Rep #: [id number] : 1955 F 68 From: Papo Loera i DO PCP: KYLER Ferguson, SECTION GANG-C Status: REG CLI Study: Wrist min 3 Views Date of Exam: 09/01/24 Exam# [id number] Ordering Dr: Stephania Rodriguez SECTION GANG-Tricia PROCEDURE: Right wrist radiographs, three views REASON FOR EXAM: Pain TECHNIQUE: Three views of the right wrist were obtained. COMPARISON: None. FINDINGS: Three views of the right wrist were obtained. Bones are osteopenic. The included distal radius and ulna are intact. Mild radiocarpal joint narrowing. No displaced carpal or metacarpal fracture. RAD/Wrist min 3 Views IMPRESSION: Osteopenia. No acute bony abnormality of the right wrist. Mild radiocarpal joint narrowing. If there is persistent pain or clinical concern, MRI evaluation may be considered. Reading Location: [facility] CC: [facility] DINORAH Rodriguez Wire Splicer: Signed [facility] CNOVon 08-17-2024 CNOV Office Visit ([facility] ) LIANNE BRISENO ([id number]) 1955 F Date Time Provider Department 08/17/24 1:40 PM MEGAN RENEE [facility] During your visit today, we recorded the following information about you: Temperature Pulse Blood pressure 97.5 degrees 71/minute 123/82 Megan Renee MD 08/17/2024 2:33 PM Signed COLORECTAL SURGERY August 17, 2024 Lianne Finn This consult was requested by patient and my final recommendations will be communicated to the requesting health care provider by way of the shared medical record for internal providers or letter via the [employer] for external providers. Chief Complaint: hemorrhoids and rectal prolapse History of Present Illness: Lianne Briseno is a 68 year old female who presents to the office for evaluation of hemorrhoids and rectal prolapse. Patient reports uterovaginal prolapse for the past 5 years, feeling a bulging sensation in the vagina at all times, size decreases after having bowel movements and increases when she feels constipated. Reports a 3 year history of hemorrhoids. Rectal prolapse: None subjective Hematochezia? No Proctalgia? No Vaginal prolapse: Yes Fecal incontinence: No Frequency: No Severity: No Urinary incontinence: None Primary uro/bpm analyst: None Constipation: Yes, Purelax few times weekly If yes, prior meds: none Primary GI: None Stool consistency: Fluctuates, soft most of the time Time in bathroom: 10 min PMH: Primary Hyperparathyroidism, Post-operative Hypothyroidism PSH: ERLIN/BSO w/Urethral Sling w/mesh (Apr 2008), b/l Breast Reduction Obstetric hx: - 1 vaginal delivery Hx obstetric trauma: None Hx anorectal trauma: None Current smoker: None Prior pelvic floor PT: None Prior testing: Manometry: None Defecography: None Colonoscopy- in 2019 (patient reports not abnormal) No family h/o CRC or IBD PAST MEDICAL HISTORY Diagnosis Date Calculus of kidney Dysmenorrhea Resolved Dyspareunia Resolved Dysthymic disorder Depression (non-psychotic) Excessive or frequent menstruation Heavy periods resolved Postsurgical hypothyroidism Premenstrual tension syndromes PMS resolved Primary hyperparathyroidism (HCC) Symptomatic menopausal or female climacteric states Unspecified urinary incontinence Resolved PAST SURGICAL HISTORY Procedure Laterality Date COLONOSCOPY FLX DX W/COLLJ SPEC WHEN PFRMD 2001 Colonoscopy PAST SURGICAL HISTORY OF L knee PAST SURGICAL HISTORY OF Parathyroidectomy THYROIDECTOMY TOTAL/COMPLETE R. side TOTAL ABDOMINAL HYSTERECT W/WO RMVL TUBE OVARY 05/03/2008 Hysterectomy, ERLIN./bso, bladder repair Current Outpatient Medications Medication Sig Dispense Refill [id number] ORAL Take 3 tablets by mouth daily at bedtime. levothyroxine sodium(SYNTHROID 112 MCG TAB) one tablet 6 days per week 0 multivitamins(DAILY MULTIVITAMIN TAB) Take one(1) tablet daily. 0 No current facility-administered medications for this visit. ALLERGIES Allergen Reactions Bee Pollen FAMILY HISTORY Problem Relation Age of Onset Diabetes Father Social History Tobacco Use Smoking status: Former Current packs/day: 0.00 Average packs/day: 0.5 packs/day for 10.0 years (5.0 ttl pk-yrs) Types: Cigarettes Start date: 09/21/1997 Quit date: 09/22/2007 Years since quittin.9 Smokeless tobacco: Never Vaping Use Vaping status: Never Used Substance Use Topics Alcohol use: Yes Comment: very rare Drug use: No Physical Exam: BP 123/82 (BP Position: Sitting, BP Cuff Size: Regular Adult) Pulse 71 Temp 36.4 ?C (97.5 ?F) LMP 04/07/2008 SpO2 97% General Appearance: Well appearing, alert, in no acute distress, well-hydrated, well nourished. Abdomen: soft ND NT The sensitive examination was discussed with the Patient or Patient's Authorized Clinical Microbiologist. As applicable, any other physician, advance practice provider, medical student, or other health professional student that will be observing or involved in the sensitive examination for educational or training purposes was discussed with the Patient or Authorized Clinical Microbiologist. The Patient or Authorized Clinical Microbiologist has agreed to proceed with the sensitive examination. (Sensitive examination includes inspection and/or palpation of the breasts, pelvis, prostate and anorectal regions) Anorectal: External exam reveals mildly enlarged external hemorrhoids, grade II prolapsing RA internal hemorrhoids with Valsalva. No mucosal or full thickness rectal prolapse with valsalva. Vaginal exam with mild/moderate cystocele, good apical support and moderate rectocele with Valsalva. Digital rectal exam reveals normal/weak tone, increase w/ squeeze and decrease with Valsalva. No mass. + internal rectal intussusception with Valsalva Toggle Press Operator present: Yes Osiris Anoscopy: The patient (more content not included)... Normal [facility] Direct serum free thyroxine (FT4) measurementOrdered By: [facility] Stephania Rodriguez on 08-04-2024 Free T4 [Mass/Vol] 1.06 ng/dL 0.76-1.46 [facility] T4 Free Directon 08-04-2024 T4 FREE DIRECT 1.06 ng/dL Normal 0.76-1.[address] [facility] Comment on above: Performed By: #### L [id number], L506.0400 ####[facility] [address] [place], [place], [id number] TSH QnOrdered By: [facility] Oliva Rodriguez on 08-04-2024 Thyroid Stimulating Hormone (TSH) 3.110 uIU/mL 0.358-3.[address] [facility] Thyroid Stim Hormone (TSH)on 08-04-2024 TSH 3.110 uIU/mL Normal 0.358-3.[address] [facility] Comment on above: Performed By: #### L [id number], L506.0400 ####[facility] [id number] [facility]. [place], [place], [id number] DOrdered By: Hannah Rodriguez on 06-08-2024 Vitamin D 25-Hydroxy 78.7 ng/mL [facility] Comment on above: Vitamin D 25(OH) Sta tus Range Deficiency <20 ng/mL (50nmol/L) Insufficiency 20 - 30 ng/mL (50 - 75 nmol/L) Sufficiency 30 - 100 ng/mL (75 - 250 nmol/L) Toxicity >100 ng/mL (>250 nmol/L) Absolute neutrophil countOrd ered By: Marilyn Carlos on 06-08-2024 Neutrophils (Bld) [#/Vol] 3.6 10*3/uL 2.0-7.[address] [facility] Basophil percentageOrdered B y: Marilyn Carlos on 06-08-2024 Basophils/100 WBC (Bld) 1.0 % 0-1 [facility] Blood urea nitrogen (BUN)/cr eatinine ratioOrdered By: Marilyn Rodriguez on 06-08-2024 Urea nitrogen/Creatinine [Mass ratio] 22.2 mg/mg High 10-[address] [facility] CBC W/Diff, Automatedon Absolute Lymph 1.66 X10 3/uL Normal 0.83-4.[address] [facility] Comment on above: Performed By: #### L 506.0400, L506.1000, L501.9520, L500.4050, L100.0100 ####[facility] [address] [place], [address] Absolute Neut 3.6 X10 3/uL Normal 2.0-7.[address] [facility] Comment on above: Performed By: #### L 506.0400, L506.1000, L501.9520, L500.4050, L100.0100 ####[facility] [address] [place], [address] Basophils/100 WBC (Bld) 1.0 % Normal 0-1 [facility] Comment on above: Performed By: #### L 506.0400, L506.1000, L501.9520, L500.4050, L100.0100 ####[facility] [address] [place], [address] Eosinophils/100 WBC (Bld) 6.6 % High 0-[address] [facility] Comment on above: Performed By: #### L 506.0400, L506.1000, L501.9520, L500.4050, L100.0100 ####[facility] [address] [place], [address] Erythrocyte distribution width (RBC) [Ratio] 12.9 % Normal 11.6-14.[address] [facility] Comment on above: Performed By: #### L 506.0400, L506.1000, L501.9520, L500.4050, L100.0100 ####[facility] [address] [place], [address] Hematocrit (Bld) [Volume fraction] 39.1 % Normal 37-[address] [facility] Comment on above: Performed By: #### L 506.0400, L506.1000, L501.9520, L500.4050, L100.0100 ####[facility] [address] [place], [address] Hemoglobin (Bld) [Mass/Vol] 12.9 g/dL Normal 12.0-15.[address] [facility] Comment on above: Performed By: #### L 506.0400, L506.1000, L501.9520, L500.4050, L100.0100 ####[facility] [address] [place], [address] IG% 0.200 Normal 0.0-0.[address] [facility] Comment on above: Result Comment: IG% - Immature Granulocytes (promyelocytes, myelocytes and metamyelocytes) > 1% indicates that a LEFT SHIFT is Present. Performed By: #### L 506.0400, L506.1000, L501.9520, L500.4050, L100.0100 ####[facility] [address] [place], [address] Lymphocytes/100 WBC (Bld) 26.9 % Normal 19-[address] [facility] Comment on above: Performed By: #### L 506.0400, L506.1000, L501.9520, L500.4050, L100.0100 ####[facility] [address] [place], [address] MCH (RBC) [Entitic mass] 29.9 pg Normal 27.0-32.[address] [facility] Comment on above: Performed By: #### L 506.0400, L506.1000, L501.9520, L500.4050, L100.0100 ####[facility] [address] [place], [address] MCHC (RBC) [Mass/Vol] 33.0 g/dL Normal 32-36 [facility] Comment on above: Performed By: #### L 506.0400, L506.1000, L501.9520, L500.4050, L100.0100 ####[facility] [address] [place], [address] MCV (RBC) [Entitic vol] 90.5 fL Normal 81-99 [facility] Comment on above: Performed By: #### L 506.0400, L506.1000, L501.9520, L500.4050, L100.0100 ####[facility] [address] [place], [address] Monocytes/100 WBC (Bld) 7.4 % Normal 0-10 [facility] Comment on above: Performed By: #### L 506.0400, L506.1000, L501.9520, L500.4050, L100.0100 ####[facility] [address] [place], [address] Neutrophils/100 WBC (Bld) 57.9 % Normal 47-[address] [facility] Comment on above: Performed By: #### L 506.0400, L506.1000, L501.9520, L500.4050, L100.0100 ####[facility] [address] [place], [address] Nucleated RBC (Bld) [#/Vol] 0 10*3/uL Normal 0-[address] [facility] Comment on above: Performed By: #### L 506.0400, L506.1000, L501.9520, L500.4050, L100.0100 ####[facility] [address] [place], [address] Platelet mean volume (Bld) [Entitic vol] 8.9 fL Normal 6.2-12.[address] [facility] Comment on above: Performed By: #### L 506.0400, L506.1000, L501.9520, L500.4050, L100.0100 ####[facility] [address] [place], [address] Platelets (Bld) [#/Vol] 313 10*3/uL Normal 150-[address] [facility] Comment on above: Performed By: #### L 506.0400, L506.1000, L501.9520, L500.4050, L100.0100 ####[facility] [address] [place], [address] RBC (Bld) [#/Vol] 4.32 10*6/uL Normal 4.2-5.4 [facility] Comment on above: Performed By: #### L 506.0400, L506.1000, L501.9520, L500.4050, L100.0100 ####[facility] [address] [place], [address] RDW SD 42.5 fl Normal 35.1-43.[address] [facility] Comment on above: Performed By: #### L 506.0400, L506.1000, L501.9520, L500.4050, L100.0100 ####[facility] [address] [place], [address] WBC (Bld) [#/Vol] 6.2 10*3/uL Normal 4.4-11.0 [facility] Comment on above: Performed By: #### L 506.0400, L506.1000, L501.9520, L500.4050, L100.0100 ####[facility] [address] [place], [address] Comprehensive Metabolic Prof christina 06-08-2024 ALK P 196 U/L High 45-[address] [facility] Comment on above: Performed By: #### L 506.0400, L506.1000, L501.9520, L500.4050, L100.0100 ####[facility] [address] [place], [address] BUN/CRE 22.2 RATIO High 10-[address] [facility] Comment on above: Performed By: #### L 506.0400, L506.1000, L501.9520, L500.4050, L100.0100 ####[facility] [address] [place], [address] CA,Total 9.2 mg/dL Normal 8.5-10.[address] [facility] Comment on above: Performed By: #### L 506.0400, L506.1000, L501.9520, L500.4050, L100.0100 ####[facility] [address] [place], [address] EST GFR - AA 75 mL/min Normal >[address] [facility] Comment on above: Result Comment: Afri can Nigerien GFR Calc Performed By: #### L 506.0400, L506.1000, L501.9520, L500.4050, L100.0100 ####[facility] [address] [place], [address] GAP 7 Normal 5-[address] [facility] Comment on above: Performed By: #### L 506.0400, L506.1000, L501.9520, L500.4050, L100.0100 ####[facility] [address] [place], [address] GFR/1.73 sq M.predicted among non-blacks MDRD (S/P/Bld) [Vol rate/Area] 62 mL/min/{1.73_m2} Normal >[address] [facility] Comment on above: Result Comment: Non- GFR Calc Performed By: #### L 506.0400, L506.1000, L501.9520, L500.4050, L100.0100 ####[facility] [address] [place], [address] T PROT 7.3 g/dL Normal 6.4-8.[address] [facility] Comment on above: Performed By: #### L 506.0400, L506.1000, L501.9520, L500.4050, L100.0100 ####[facility] [address] [place], [address] Comprehensive Metabolic Prof ilOrdered By: Marilyn Rodriguez on 06-08-2024 Albumin [Mass/Vol] 3.4 g/dL Normal 3.2-5.0 [facility] Comment on above: Performed By: #### L 506.0400, L506.1000, L501.9520, L500.4050, L100.0100 ####[facility] [address] [place], [address] Albumin/Globulin [Mass ratio] 0.9 {ratio} Normal 0.9-2.[address] [facility] Comment on above: Performed By: #### L 506.0400, L506.1000, L501.9520, L500.4050, L100.0100 ####[facility] [address] [place], [address] ALT [Catalytic activity/Vol] 25 U/L Normal 13-[address] [facility] Comment on above: Performed By: #### L 506.0400, L506.1000, L501.9520, L500.4050, L100.0100 ####[facility] [address] [place], [address] AST [Catalytic activity/Vol] 27 U/L Normal 15-[address] [facility] Comment on above: Performed By: #### L 506.0400, L506.1000, L501.9520, L500.4050, L100.0100 ####[facility] [address] [place], [address] Bilirubin [Mass/Vol] 0.70 mg/dL Normal 0.20-1.00 [facility] Comment on above: Result Comment: For patients on eltrombopag therapy, use of Dimension [place] TBIL is not recommended. Performed By: #### L 506.0400, L506.1000, L501.9520, L500.4050, L100.0100 ####[facility] [address] [place], [address] For patients on eltr ombopag therapy, use of Dimension [place] TBIL is not recommended. Chloride [Moles/Vol] 105 mmol/L Normal 98-107 [facility] Comment on above: Performed By: #### L 506.0400, L506.1000, L501.9520, L500.4050, L100.0100 ####[facility] [address] [place], [address] CO2 [Moles/Vol] 29.0 mmol/L Normal 21.0-32.[address] [facility] Comment on above: Performed By: #### L 506.0400, L506.1000, L501.9520, L500.4050, L100.0100 ####[facility] [address] [place], [address] Creatinine [Mass/Vol] 0.95 mg/dL Normal 0.55-1.02 [facility] Comment on above: Result Comment: The validity of the calculated GFR GFRAA in patients over 70 years has not been determined. Clinical correlation is essential. Performed By: #### L 506.0400, L506.1000, L501.9520, L500.4050, L100.0100 ####[facility] [address] [place], [address] The validity of the calculated GFR & GFRAA in patients over 70 years has not been determined. Clinical correlation is essential. Globulin (S) [Mass/Vol] 3.9 g/dL Normal 2.2-4.2 [facility] Comment on above: Performed By: #### L 506.0400, L506.1000, L501.9520, L500.4050, L100.0100 ####[facility] [address] [place], [place], [address] Glucose [Mass/Vol] 101 mg/dL Normal 74-106 [facility] Comment on above: Result Comment: Fast ing Glucose result from 100 to 125 mg/dL suggests IMPAIRED HOMEOSTASIS per A.D.A. criteria. Performed By: #### L 506.0400, L506.1000, L501.9520, L500.4050, L100.0100 ####[facility] [address] [place], [address] Fasting Glucose resu lt from 100 to 125 mg/dL suggests IMPAIRED HOMEOSTASIS per A.D.A. criteria. Potassium [Moles/Vol] 3.8 mmol/L Normal 3.5-5.1 [facility] Comment on above: Performed By: #### L 506.0400, L506.1000, L501.9520, L500.4050, L100.0100 ####[facility] [address] [place], [address] Sodium [Moles/Vol] 141 mmol/L Normal 136-145 [facility] Comment on above: Performed By: #### L 506.0400, L506.1000, L501.9520, L500.4050, L100.0100 ####[facility] [address] [place], [address] Urea nitrogen [Mass/Vol] 21 mg/dL High 7-[address] [facility] Comment on above: Performed By: #### L 506.0400, L506.1000, L501.9520, L500.4050, L100.0100 ####[facility] [address] [place], [address] Direct serum free thyroxine (FT4) measurementOrdered By: Marilyn Rodriguez on 06-08-2024 Free T4 [Mass/Vol] 1.16 ng/dL 0.76-1.46 [facility] Eosinophil percentageOrdered By: Marilyn Rodriguez on 06-08-2024 Eosinophils/100 WBC (Bld) 6.6 % High 0-[address] [facility] Erythrocyte distribution wid th ratioOrdered By: Marilyn Rodriguez on 06-08-2024 Erythrocyte distribution width (RBC) [Ratio] 12.9 % 11.6-14.[address] [facility] Erythrocyte distribution wid th standard deviationOrdered By: Marilyn Rodriguez on 06-08-2024 Erythrocyte distribution width (RBC) [Entitic vol] 42.5 fL 35.1-43.[address] [facility] Estimated glomerular filtrat ion rate (GFR) AmericanOrdered By: Marilyn Rodriguez on 06-08-2024 Estimated GFR (MDRD) Amer 75 mL/min >[address] [facility] Comment on above: GFR Calc Glomerular filtration rate ( GFR) estimationOrdered By: Marilyn Rodriguez on 06-08-2024 Estimated GFR (MDRD) Non-Af Amer 62 mL/min >[address] [facility] Comment on above: Non- GFR Calc Hematocrit Auto (Bld) [Volum e fraction]Ordered By: Marilyn Rodriguez on 06-08-2024 Hematocrit (Bld) [Volume fraction] 39.1 % 37-[address] [facility] Hemoglobin measurementOrdere d By: Marilyn Rodriguez on 06-08-2024 Hemoglobin (Bld) [Mass/Vol] 12.9 g/dL 12.0-15.[address] [facility] Immature granulocytes/100 WB C Auto (Bld)Ordered By: Marilyn Rodriguez on 06-08-2024 Immature granulocytes/100 WBC (Bld) 0.200 % 0.0-0.[address] [facility] Comment on above: IG% - Immature Granu locytes (promyelocytes, myelocytes and metamyelocytes) > 1% indicates that a LEFT SHIFT is Present. Lymphocytes Auto (Unsp spec) [#/Vol]Ordered By: Marilyn Rodriguez on 06-08-2024 Lymphocytes (Bld) [#/Vol] 1.66 10*3/uL 0.83-4.[address] [facility] Lymphocytes/100 WBC Auto (Un sp spec)Ordered By: Marilyn Rodriguez on 06-08-2024 Lymphocytes/100 WBC (Bld) 26.9 % 19-[address] [facility] MCV (mean corpuscular volume ) determinationOrdered By: Marilyn Rodriguez on 06-08-2024 MCV (RBC) [Entitic vol] 90.5 fL 81-99 [facility] Mean corpuscular hemoglobin (MCH) determinationOrdered By: Marilyn Rodriguez on 06-08-2024 MCH (RBC) [Entitic mass] 29.9 pg 27.0-32.[address] [facility] Mean corpuscular hemoglobin concentration (MCHC) determinationOrdered By: Marilyn Rodriguez on 06-08-2024 MCHC (RBC) [Mass/Vol] 33.0 g/dL 32-36 [facility] Mean platelet volume determi nationOrdered By: Marilyn Rodriguez on 06-08-2024 Platelet mean volume (Bld) [Entitic vol] 8.9 fL 6.2-12.[address] [facility] Monocyte percentageOrdered B y: Marilyn Rodriguez on 06-08-2024 Monocytes/100 WBC (Bld) 7.4 % 0-10 [facility] Neutrophil percentageOrdered By: Marilyn Rodriguez on 06-08-2024 Neutrophils/100 WBC (Bld) 57.9 % 47-[address] [facility] Nucleated red blood cell per centageOrdered By: Marilyn Rodriguez on 06-08-2024 Nucleated RBC/100 WBC (Bld) [Ratio] 0 % 0-[address] [facility] Platelet countOrdered By: Marty Rodriguez on 06-08-2024 Platelets (Bld) [#/Vol] 313 10*3/uL 150-[address] [facility] RBC Auto (Bld) [#/Vol]Ordere d By: Marilyn Rodriguez on 06-08-2024 RBC (Bld) [#/Vol] 4.32 10*6/uL 4.2-5.4 [facility] Serum anion gap measurementO rdered By: Marilyn Rodriguez on 06-08-2024 Anion gap [Moles/Vol] 7 mmol/L 5-15 [facility] Serum or plasma alkaline dee dee sphatase measurementOrdered By: Marilyn Rodriguez on 06-08-2024 ALP [Catalytic activity/Vol] 196 U/L High 45-[address] [facility] Serum or plasma calcium crystal urement (mass/volume)Ordered By: Marilyn Rodriguez on 06-08-2024 Calcium [Mass/Vol] 9.2 mg/dL 8.5-10.1 [facility] T4 Free Directon 06-08-2024 T4 FREE DIRECT 1.16 ng/dL Normal 0.76-1.[address] [facility] Comment on above: Performed By: #### L 506.0400, L506.1000, L501.9520, L500.4050, L100.0100 ####[facility] [address] [place], [address] TSH QnOrdered By: Marilyn garcia on 06-08-2024 Thyroid Stimulating Hormone (TSH) 0.731 uIU/mL 0.358-3.[address] [facility] Thyroid Stim Hormone (TSH)on 06-08-2024 TSH 0.731 uIU/mL Normal 0.358-3.[address] [facility] Comment on above: Performed By: #### L 506.0400, L506.1000, L501.9520, L500.4050, L100.0100 ####[facility] [address] [place], [address] Total proteinOrdered By: Osorio Rodriguez on 06-08-2024 Protein [Mass/Vol] 7.3 g/dL 6.4-8.2 [facility] Vitamin D,25 Hydroxyon 06-08 Vitamin D 25-OH 78.7 ng/mL Normal [facility] Comment on above: Result Comment: Ro min D 25(OH) Status Range Deficiency <20 ng/mL (50nmol/L) Insufficiency 20 - 30 ng/mL (50 - 75 nmol/L) Sufficiency 30 - 100 ng/mL (75 - 250 nmol/L) Toxicity >100 ng/mL (>250 nmol/L) Performed By: #### L 506.0400, L506.1000, L501.9520, L500.4050, L100.0100 ####[facility] [address] [place], [address] White blood cell (WBC) count Ordered By: Marilyn Rodriguez on 06-08-2024 WBC (Bld) [#/Vol] 6.2 10*3/uL 4.4-11.0 [facility] T4 Free Directon 04-22-2024 T4 FREE DIRECT 1.28 ng/dL Normal 0.76-1.[address] [facility] Comment on above: Performed By: #### L 501.9520, L506.0400 ####[facility] [address] [place], [address] Thyroid Stim Hormone (TSH)on 04-22-2024 TSH 0.281 uIU/mL Low 0.358-3.[address] [facility] Comment on above: Performed By: #### L 501.9520, L506.0400 ####[facility] [address] [place], [address] Lower Ext Art Exam w/o Exerc rosalinda 03-23-2024 Lower Ext Art Exam w/o Exercis [facility] [address] [place] [address] Lower Ext Art Exam w/o Exercis 03/23/24 0959 MR#: [id number] Acct: [id number] Name: LIANNE BRISENO ROBIN Rep #: [id number] : 1955 68 From: Jesus Marsh MD Attending Dr: Stephania Rodriguez, [facility], [facility] Status : REG CLI Ordering Dr: Stephania Rodriguez [facility] Date: 03/23 Location: [facility] Sex: F C Admitted: Reason For Study: PAIN Procedure A bilateral lower extremity continuous wave Doppler with analog waveform analysis,segmental pressures,and ankle brachial indexes without exercise. Left Segmental Pressures Left brachial= 145mmHg. Left posterior tibial artery = 154mmHg. Left dorsalis pedis artery = 148mmHg. The left posterior tibial artery waveforms are triphasic. The left dorsalis pedis waveforms are triphasic. Right Segmental Pressures Right brachial= 145mmHg. Right posterior tibial artery = 159mmHg. Right dorsalis pedis artery = 152mmHg. The right posterior tibial artery waveforms are triphasic. The right dorsalis pedis waveforms are triphasic. Indices The right resting ankle brachial index is 1.10. The right ankle brachial index by the posterior tibial artery is 1.10. The right ankle brachial index by the dorsalis pedis is 1.05. The left resting ankle brachial index is 1.06. The left ankle brachial index by the posterior tibial artery is 1.06. The left ankle brachial index by the dorsalis pedis is 1.02. VL/Lower Ext Art Exam w/o Exercis Interpretation Summary Triphasic Doppler waveforms are noted at ankle level bilaterally. Pulse-volume recordings appear satisfactory at low thigh, calf, and ankle level bilaterally. Resting ankle-brachial indices are normal bilaterally. There is no evidence of significant arterial occlusive disease in the lower extremities bilaterally. Ordering Physician: Stephania Rodriguez Referring Physician: STEPHANIA RODRIGUEZ Performed By: Sharlene Liang RVT, RDCS 03/23/24 2221 Date Jesus Marsh MD CC: [facility] Stephania Rodriguez Date Dictated: 03/23/24958 Date Transcribed: 03/23/242220 Wire Splicer: Signed Normal [facility] T4 Free Directon 03-16-2024 T4 FREE DIRECT 1.60 ng/dL High 0.76-1.[address] [facility] Comment on above: Performed By: #### L 506.0400, L501.9520 #### [facility] Laboratory [address] [place], [address] Thyroid Stim Hormone (TSH)on 03-16-2024 TSH 0.017 uIU/mL Low 0.358-3.[address] [facility] Comment on above: Performed By: #### L 506.0400, L501.9520 #### [facility] [address] [place], [address] CREATININE FINGERSTICKon CREATININE WB < 1.0 Normal 0.55-1.[address] [facility] Comment on above: Performed By: #### L 9100.0200 #### [facility] [address] [place], [address] EGFR WB > 60.0000 Normal >[address] [facility] Comment on above: Performed By: #### L 9100.0200 #### [facility] [address] [place], [address] Upper Ext Joint Only W/WO Co nton 03-15-2024 Upper Ext Joint Only W/WO Cont [facility] Imaging Services [address] [place] [address] Upper Ext Joint Only W/WO Cont MR#: [id number] Acct: [id number] Name: LIANNE BRISENO ROBIN Rep #: [id number] : 1955 F 68 From: Aaron Kramer MD PCP: Stephania Rodriguez [facility] Status: REG CLI Study: Upper Ext Joint Only W/WO Cont Date of Exam: 0 03/15/24 Exam# [id number] Ordering Dr: Stephania Rodriguez [facility] [id number] STUDY: MRI RIGHT SHOULDER REASON FOR EXAM: Female, 68 years old. LOCALIZED SWELLING MASS AND LUMP MARKED W BB TECHNIQUE: Standardized fat and water weighted pulse sequences were obtained in all 3 orthogonal planes. Following the intravenous administration of 14 cc Clariscan contrast, additional postcontrast imaging was obtained. COMPARISON: Right shoulder MRI dated 03/06/2019. 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 There are no abnormal nodular internal components. There are no aggressive features. There is a moderate grade partial thickness articular surface tear of the distal supraspinatus tendon, overall measuring 4 mm in length (coronal T2 series 7 images 19-20) and 4 mm in width (sagittal T2 series 8 image 8). Normal infraspinatus tendon. Normal subscapularis tendon. Normal teres minor tendon. There is mild atrophy and fatty infiltration of the supraspinatus muscle. Normal infraspinatus muscle. Normal subscapularis muscle. Normal teres minor muscle. There is a small glenohumeral joint effusion. Normal humeral head and visualized proximal humerus. Normal biceps labral complex. Normal intracapsular long biceps tendon. Normal labrum. Normal capsulo-ligamentous complex. Normal rotator interval. There is hypertrophic acromioclavicular arthrosis, with inferior osteophyte formation, with mild effacement of the supraspinatus myotendinous junction (coronal T2 series 7 image 19). There is a Type II morphology (curved), with a neutral orientation. There is trace subacromial-subdeltoid bursal fluid. Normal visualized coracohumeral and coracoacromial ligaments. Normal quadrilateral space. Normal axillary space. Normal trapezius muscle. Following IV contrast administration, there is no abnormal enhancement. 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 No aggressive features. 4 x 4 mm moderate grade partial thickness articular surface tear of the distal supraspinatus tendon. Mild atrophy and fatty infiltration of the supraspinatus muscle. Hypertrophic acromioclavicular arthrosis, with inferior osteophyte formation, with mild effacement of the supraspinatus myotendinous junction. Small glenohumeral joint effusion. No abnormal enhancement. Electronically Signed: Aaron Kramer MD at 15:57 EDT , CC: [facility] DIN[facility] Rodriguez Wire Splicer: Signed Normal [facility] 03-11-2024 [place] Telephone (GENSME) LIANNE BRISENO ([id number]) 1955 F Date Time Provider Department 03/11/24 DEMOND BARNARD During your visit today, we recorded the following information about you: Ru Mejias 03/11/2024 10:56 AM Signed Patient called into the office today and is looking to reschedule her surgery that is scheduled for 03/29/2024. Patient can be reached at [phone]. Thanks Vivien Bose 03/11/2024 1:39 PM Addendum Left patient message to call back AND reschedule surgery Allergies As of Date: 03/11/2024 Noted Allergy Reaction BEE POLLEN 04/16/2005 Date Reviewed: 02/24/2024 Reviewed by: Jennyfer Prado MA - Fully Assessed Reason for Visit: Appointment [186] Prescriptions as of 03/11/2024 - [id number] ORAL Take 3 tablets by mouth daily at bedtime. - levothyroxine sodium(SYNTHROID 112 MCG TAB) one tablet 6 days per week - multivitamins(DAILY MULTIVITAMIN TAB) Take one(1) tablet daily. 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] 04/28/2008 05/18/2008 EXCESSIVE MENSTRUATION [N92.0] 04/28/2008 05/18/2008 IRREGULAR MENSTRUATION [N92.6] 04/28/2008 05/18/2008 DYSMENORRHEA [N94.6] 04/28/2008 05/18/2008 Dyspareunia [OWH6106] 04/28/2008 10/17/2009 FEMALE STRESS INCONTINENCE [N39.3] 04/28/2008 05/18/2008 URGE INCONTINENCE [N39.41] 04/28/2008 05/18/2008 URGENCY OF URINATION [R39.15] 04/28/2008 05/18/2008 SYMPTOMATIC FEMALE CLIMACTERIC STATE [N95.1] 06/15/2008 ATROPHIC VAGINITIS [N95.2] 06/15/2008 TRANSIENT INSOMNIA [F51.02] 06/15/2008 Encounter Status:Closed by RU MEJIAS on 03/11/24 [facility] Olga 02-24-2024 CNOV Office Visit (GENSME ) LIANNE BRISENO ([id number]) 1955 F Date Time Provider Department 02/24/24 9:30 AM DEMOND BARNARD During your visit today, we recorded the following information about you: Pulse Blood pressure Weight Height 69/minute 108/71 76.2 kg 1.575 m Demond Barnard DO 02/25/2024 10:39 AM Signed General Surgery New Patient REASON FOR VISIT Lianne Briseno is a 68 year old female who is scheduled for a consult at the request of Self / Jasmyne Leach MD for hemorrhoids vs rectal prolapse. My final recommendations will be communicated back to the requesting physician by the way of the shared medical record, fax, or via US Mail History of Present Illness: Lianne Briseno is a 68 year old female with contributing past medical and surgical history significant for primary hyperparathyroidism, post-surgical hypothyroidism, hx of incomplete uterovaginal prolapse and midline cystocele s/p ERLIN/BSO with CASSI from sigmoid to uterus and urethral sling w/ mesh (unable to find complete op report in EMR, 2007), s/p bilateral breast reduction. The patient presents with reported hemorrhoids vs rectal prolapse. She states that when she has a bowel movement she feels like something starts protruding from her anus and her vagina. The mass from her anus reduces spontaneously. The likely rectocele she occasionally has to manually reduce. She endorses constipation. PAST MEDICAL HISTORY No date: Calculus of kidney No date: Dysmenorrhea Comment: Resolved No date: Dyspareunia Comment: Resolved No date: Dysthymic disorder Comment: Depression (non-psychotic) No date: Excessive or frequent menstruation Comment: Heavy periods resolved No date: Postsurgical hypothyroidism No date: Premenstrual tension syndromes Comment: PMS resolved No date: Primary hyperparathyroidism (HCC) No date: Symptomatic menopausal or female climacteric states No date: Unspecified urinary incontinence Comment: Resolved PAST SURGICAL HISTORY 2001: COLONOSCOPY FLX DX W/COLLJ SPEC WHEN PFRMD Comment: Colonoscopy No date: PAST SURGICAL HISTORY OF Comment: L knee No date: PAST SURGICAL HISTORY OF Comment: Parathyroidectomy No date: THYROIDECTOMY TOTAL/COMPLETE Comment: R. side 05/03/2008: TOTAL ABDOMINAL HYSTERECT W/WO RMVL TUBE OVARY Comment: Hysterectomy, ERLIN./bso, bladder repair FAMILY HISTORY Problem Relation Age of Onset Diabetes Father Social History Tobacco Use Smoking status: Former Current packs/day: 0.00 Average packs/day: 0.5 packs/day for 10.0 years (5.0 ttl pk-yrs) Types: Cigarettes Start date: 09/21/1997 Quit date: 09/22/2007 Years since quittin.4 Smokeless tobacco: Never Vaping Use Vaping status: Never Used Substance Use Topics Alcohol use: Yes Comment: very rare Drug use: No The patient has the following: Problem List Noted Noted By Resolved Resolved By Symptomatic menopausal or female climacteric states 06/15/2008 Niecy Gabriel Marissa No Postmenopausal atrophic vaginitis 06/15/2008 Niecy Gabriel A No Transient disorder of initiating or maintaining sleep 06/15/2008 Niecy Gabriel Marissa No Calculus of kidney 06/12/2005 Rodolfo Rick MD No Postsurgical hypothyroidism Judy Sam LPN No Primary hyperparathyroidism (HCC) Judy Sam LPN No Leiomyoma of uterus, unspecified 04/28/2008 Niecy Gabriel A 05/18/2008 Niecy Gabriel A Excessive or frequent menstruation 04/28/2008 Gabriel Pemberton A 05/18/2008 Niecy Gabriel A Irregular menstrual cycle 04/28/2008 Niecy, Gabriel A 05/18/2008 Niecy Gabriel A Dysmenorrhea 04/28/2008 Niecy, Gabriel A 05/18/2008 Niecy Gabriel A Dyspareunia 04/28/2008 Niecy Gabriel A 10/17/2009 Neicy Gabriel A Female stress incontinence 04/28/2008 Niecy, Gabriel A 05/18/2008 Niecy Gabriel A Urge incontinence 04/28/2008 Niecy, Gabriel A 05/18/2008 Niecy Gabriel A Urgency of urination 04/28/2008 Niecy, Gabriel A 05/18/2008 Niecy Gabriel A MEDICATIONS Current Outpatient Medications Medication Sig Dispense Refill [id number] ORAL Take 3 tablets by mouth daily at bedtime. levothyroxine sodium(SYNTHROID 112 MCG TAB) one tablet 6 days per week 0 multivitamins(DAILY MULTIVITAMIN TAB) Take one(1) tablet daily. 0 No current facility-administered medications for this visit. CURRENT ALLERGIES ALLERGIES Allergen Reactions Bee Pollen REVIEW OF SYSTEMS GENERAL: No weight loss, malaise or fevers. RESPIRATORY: Negative for cough, wheezing, or shortness of breath. CARDIOVASCULAR: Negative for chest pain, leg swelling, or palpitations. GI: Endorses constipation. No abdominal pain, nausea, vomiting, diarrhea : No history of dysuria, frequency or incontinence. 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 Reports mass that protrudes from her vagina when she has a bowel movement PHYSICAL EXAMINATION BP 108/71 Pulse 69 Ht 5' 2.008 (1.58 (more content not included)... Normal [facility] HISTORY PHYSICALon HISTORY PHYSICAL HNO ID: [id number] Author: DEMOND BARNARD, DO Service: ? Author Type: Physician Type: H&P Filed: 02/25/2024 10:39 Note Text: General Surgery New Patient REASON FOR VISIT Lianne Briseno is a 68 year old female who is scheduled for a consult at the request of Self / Jasmyne Leach MD for hemorrhoids vs rectal prolapse. My final recommendations will be communicated back to the requesting physician by the way of the shared medical record, fax, or via US Mail History of Present Illness: Lianne Briseno is a 68 year old female with contributing past medical and surgical history significant for primary hyperparathyroidism, post-surgical hypothyroidism, hx of incomplete uterovaginal prolapse and midline cystocele s/p ERLIN/BSO with CASSI from sigmoid to uterus and urethral sling w/ mesh (unable to find complete op report in EMR, 2007), s/p bilateral breast reduction. The patient presents with reported hemorrhoids vs rectal prolapse. She states that when she has a bowel movement she feels like something starts protruding from her anus and her vagina. The mass from her anus reduces spontaneously. The likely rectocele she occasionally has to manually reduce. She endorses constipation. PAST MEDICAL HISTORY No date: Calculus of kidney No date: Dysmenorrhea Comment: Resolved No date: Dyspareunia Comment: Resolved No date: Dysthymic disorder Comment: Depression (non-psychotic) No date: Excessive or frequent menstruation Comment: Heavy periods resolved No date: Postsurgical hypothyroidism No date: Premenstrual tension syndromes Comment: PMS resolved No date: Primary hyperparathyroidism (HCC) No date: Symptomatic menopausal or female climacteric states No date: Unspecified urinary incontinence Comment: Resolved PAST SURGICAL HISTORY 2001: COLONOSCOPY FLX DX W/COLLJ SPEC WHEN PFRMD Comment: Colonoscopy No date: PAST SURGICAL HISTORY OF Comment: L knee No date: PAST SURGICAL HISTORY OF Comment: Parathyroidectomy No date: THYROIDECTOMY TOTAL/COMPLETE Comment: R. side 05/03/2008: TOTAL ABDOMINAL HYSTERECT W/WO RMVL TUBE OVARY Comment: Hysterectomy, ERLIN./bso, bladder repair FAMILY HISTORY Problem Relation Age of Onset Diabetes Father Social History Tobacco Use Smoking status: Former Current packs/day: 0.00 Average packs/day: 0.5 packs/day for 10.0 years (5.0 ttl pk-yrs) Types: Cigarettes Start date: 09/21/1997 Quit date: 09/22/2007 Years since quittin.4 Smokeless tobacco: Never Vaping Use Vaping status: Never Used Substance Use Topics Alcohol use: Yes Comment: very rare Drug use: No The patient has the following: Problem List Noted Noted By Resolved Resolved By Symptomatic menopausal or female climacteric states 06/15/2008 Gabriel Pemberton A No Postmenopausal atrophic vaginitis 06/15/2008 Gabriel Pemberton No Transient disorder of initiating or maintaining sleep 06/15/2008 Gabriel Pemberton A No Calculus of kidney 06/12/2005 Rodolfo Rick MD No Postsurgical hypothyroidism Judy Sam LPN No Primary hyperparathyroidism (HCC) Judy Sam LPN No Leiomyoma of uterus, unspecified 04/28/2008 Gabriel Pemberton A 05/18/2008 Gabriel Pemberton A Excessive or frequent menstruation 04/28/2008 Gabriel Pemberton A 05/18/2008 Gabriel Pemberton A Irregular menstrual cycle 04/28/2008 Gabriel Pemberton A 05/18/2008 Gabriel Pemberton A Dysmenorrhea 04/28/2008 Gabriel Pemberton A 05/18/2008 Gabriel Pemberton A Dyspareunia 04/28/2008 Gabriel Pemberton A 10/17/2009 Gabriel Pemberton A Female stress incontinence 04/28/2008 Gabriel Pemberton A 05/18/2008 Gabriel Pmeberton A Urge incontinence 04/28/2008 Gabriel Pemberton A 05/18/2008 Gabriel Pemberton A Urgency of urination 04/28/2008 Gabriel Pemberton A 05/18/2008 Gabriel Pemberton A MEDICATIONS Current Outpatient Medications Medication Sig Dispense Refill [id number] ORAL Take 3 tablets by mouth daily at bedtime. levothyroxine sodium(SYNTHROID 112 MCG TAB) one tablet 6 days per week 0 multivitamins(DAILY MULTIVITAMIN TAB) Take one(1) tablet daily. 0 No current facility-administered medications for this visit. CURRENT ALLERGIES ALLERGIES Allergen Reactions Bee Pollen REVIEW OF SYSTEMS GENERAL: No weight loss, malaise or fevers. RESPIRATORY: Negative for cough, wheezing, or shortness of breath. CARDIOVASCULAR: Negative for chest pain, leg swelling, or palpitations. GI: Endorses constipation. No abdominal pain, nausea, vomiting, diarrhea : No history of dysuria, frequency or incontinence. 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 Reports mass that protrudes from her vagina when she has a bowel movement PHYSICAL EXAMINATION BP 108/71 Pulse 69 Ht 5' 2.008 (1.58m) Wt 168 lb (76.2kg) LMP 04/07/2008 BMI 30.72 kg/(m2). General Appearance: Well appearing, alert, in no acute distress, well-hydrated, well nourished. Heart: RR Abdomen: Normal abdominal exam Anorectal: No external hemorrhoids or skin tag. The anal sphincter has no (more content not included)... Normal [facility] Ext Non Vasc Limited/Soft Ti sson 02-04-2024 Ext Non Vasc Limited/Soft Tiss [facility] [address] [place], [place] [address] Ext Non Vasc Limited/Soft Tiss MR#: [id number] Acct: [id number] Name: LIANNE BRISENO ROBIN Rep #: [id number] : 1955 F 68 From: Adelaide Barry PCP: KYLER Ferguson, SECTION GANG-C Status: REG CLI Study: Ext Non Vasc Limited/Soft Tiss Date of Exam: 0 02/04/24 Exam# [id number] Ordering Dr: Stephania Rodriguez SECTION GANG-C [id number] INDICATION: MASS of RT UPPER EXT AREA OF PALP LUMP EXAMINATION: Right upper extremity soft tissue COMPARISON: No relevant prior comparison study available TECHNIQUE: Routine imaging with grayscale and color Doppler imaging in the extremity soft tissues. FINDINGS: Limited images obtained in the area of clinical concern/palpable lump right upper extremity. Localized heterogeneous structure in the region measures 7.2 x 2.0 x 3.9 cm, with fairly well-defined margins. Minimal internal vascularity. US/Ext Non Vasc Limited/Soft Tiss IMPRESSION: Localized mass in the region of concern. MRI may be helpful for further characterization. Electronically Signed: Adelaide Balderas MD at 0:01 EDT , CC: [facility] DIN[facility]AH Rodriguez Wire Splicer: Signed Normal [facility] CBC-Complete Blood Cnt No Di ffon 01-27-2024 Erythrocyte distribution width (RBC) [Ratio] 13.2 % Normal 11.6-14.[address] [facility] Comment on above: Performed By: #### L 503.0105, L500.4050, L506.1000, L100.0500, L501.9520, L506.0400 #### [facility] Laboratory [address] [facility] [place], [address] Hematocrit (Bld) [Volume fraction] 37.2 % Normal 37-[address] [facility] Comment on above: Performed By: #### L 503.0105, L500.4050, L506.1000, L100.0500, L501.9520, L506.0400 #### [facility] [address] [place], [address] Hemoglobin (Bld) [Mass/Vol] 12.2 g/dL Normal 12.0-15.[address] [facility] Comment on above: Performed By: #### L 503.0105, L500.4050, L506.1000, L100.0500, L501.9520, L506.0400 #### [facility] [address] [place], [address] MCH (RBC) [Entitic mass] 28.8 pg Normal 27.0-32.[address] [facility] Comment on above: Performed By: #### L 503.0105, L500.4050, L506.1000, L100.0500, L501.9520, L506.0400 #### [facility] [address] [place], [address] MCHC (RBC) [Mass/Vol] 32.8 g/dL Normal 32-36 [facility] Comment on above: Performed By: #### L 503.0105, L500.4050, L506.1000, L100.0500, L501.9520, L506.0400 #### [facility] [address] [place], [address] MCV (RBC) [Entitic vol] 87.7 fL Normal 81-99 [facility] Comment on above: Performed By: #### L 503.0105, L500.4050, L506.1000, L100.0500, L501.9520, L506.0400 #### [facility] [address] [place], [address] Platelet mean volume (Bld) [Entitic vol] 9.2 fL Normal 6.2-12.[address] [facility] Comment on above: Performed By: #### L 503.0105, L500.4050, L506.1000, L100.0500, L501.9520, L506.0400 #### [facility] [address] [place], [address] Platelets (Bld) [#/Vol] 269 10*3/uL Normal 150-[address] [facility] Comment on above: Performed By: #### L 503.0105, L500.4050, L506.1000, L100.0500, L501.9520, L506.0400 #### [facility] [address] [place], [address] RBC (Bld) [#/Vol] 4.24 10*6/uL Normal 4.2-5.4 [facility] Comment on above: Performed By: #### L 503.0105, L500.4050, L506.1000, L100.0500, L501.9520, L506.0400 #### [facility] [address] [place], [address] RDW SD 42.3 fl Normal 35.1-43.[address] [facility] Comment on above: Performed By: #### L 503.0105, L500.4050, L506.1000, L100.0500, L501.9520, L506.0400 #### [facility] [address] [place], [address] WBC (Bld) [#/Vol] 7.7 10*3/uL Normal 4.4-11.0 [facility] Comment on above: Performed By: #### L 503.0105, L500.4050, L506.1000, L100.0500, L501.9520, L506.0400 #### [facility] [address] [place], [address] Comprehensive Metabolic [facility] 01-27-2024 Albumin [Mass/Vol] 3.3 g/dL Normal 3.2-5.0 [facility] Comment on above: Performed By: #### L 503.0105, L500.4050, L506.1000, L100.0500, L501.9520, L506.0400 ####[facility] [address] [place], [address] Albumin/Globulin [Mass ratio] 0.9 {ratio} Normal 0.9-2.[address] [facility] Comment on above: Performed By: #### L 503.0105, L500.4050, L506.1000, L100.0500, L501.9520, L506.0400 ####[facility] [address] [place], [address] ALK P 205 U/L High 45-[address] [facility] Comment on above: Performed By: #### L 503.0105, L500.4050, L506.1000, L100.0500, L501.9520, L506.0400 ####[facility] [address] [place], [address] ALT [Catalytic activity/Vol] 21 U/L Normal 13-[address] [facility] Comment on above: Performed By: #### L 503.0105, L500.4050, L506.1000, L100.0500, L501.9520, L506.0400 ####[facility] [address] [place], [address] AST [Catalytic activity/Vol] 23 U/L Normal 15-[address] [facility] Comment on above: Performed By: #### L 503.0105, L500.4050, L506.1000, L100.0500, L501.9520, L506.0400 ####[facility] [address] [place], [address] Bilirubin [Mass/Vol] 0.40 mg/dL Normal 0.20-1.00 [facility] Comment on above: Result Comment: For patients on eltrombopag therapy, use of Dimension [place] TBIL is not recommended. Performed By: #### L 503.0105, L500.4050, L506.1000, L100.0500, L501.9520, L506.0400 ####[facility] [address] [place], [address] BUN/CRE 20.7 RATIO High 10-[address] [facility] Comment on above: Performed By: #### L 503.0105, L500.4050, L506.1000, L100.0500, L501.9520, L506.0400 ####[facility] [address] [place], [address] CA,Total 9.0 mg/dL Normal 8.5-10.[address] [facility] Comment on above: Performed By: #### L 503.0105, L500.4050, L506.1000, L100.0500, L501.9520, L506.0400 ####[facility] [address] [place], [address] Chloride [Moles/Vol] 107 mmol/L Normal 98-107 [facility] Comment on above: Performed By: #### L 503.0105, L500.4050, L506.1000, L100.0500, L501.9520, L506.0400 ####[facility] [address] [place], [address] CO2 [Moles/Vol] 23.0 mmol/L Normal 21.0-32.[address] [facility] Comment on above: Performed By: #### L 503.0105, L500.4050, L506.1000, L100.0500, L501.9520, L506.0400 ####[facility] [address] [place], [address] Creatinine [Mass/Vol] 1.11 mg/dL High 0.55-1.02 [facility] Comment on above: Result Comment: The validity of the calculated GFR GFRAA in patients over 70 years has not been determined. Clinical correlation is essential. Performed By: #### L 503.0105, L500.4050, L506.1000, L100.0500, L501.9520, L506.0400 ####[facility] [address] [place], [address] EST GFR - AA 62 mL/min Normal >[address] [facility] Comment on above: Result Comment: Afri can Nigerien GFR Calc Performed By: #### L 503.0105, L500.4050, L506.1000, L100.0500, L501.9520, L506.0400 ####[facility] [address] [place], [address] GAP 9 Normal 5-[address] [facility] Comment on above: Performed By: #### L 503.0105, L500.4050, L506.1000, L100.0500, L501.9520, L506.0400 ####[facility] [address] [place], [address] GFR/1.73 sq M.predicted among non-blacks MDRD (S/P/Bld) [Vol rate/Area] 52 mL/min/{1.73_m2} Low >[address] [facility] Comment on above: Result Comment: Non- GFR Calc Performed By: #### L 503.0105, L500.4050, L506.1000, L100.0500, L501.9520, L506.0400 ####[facility] [address] [place], [address] Globulin (S) [Mass/Vol] 3.5 g/dL Normal 2.2-4.2 [facility] Comment on above: Performed By: #### L 503.0105, L500.4050, L506.1000, L100.0500, L501.9520, L506.0400 ####[facility] [address] [place], [address] Glucose [Mass/Vol] 111 mg/dL High 74-106 [facility] Comment on above: Result Comment: Fast ing Glucose result from 100 to 125 mg/dL suggests IMPAIRED HOMEOSTASIS per A.D.A. criteria. Performed By: #### L 503.0105, L500.4050, L506.1000, L100.0500, L501.9520, L506.0400 ####[facility] [address] [place], [address] Potassium [Moles/Vol] 3.8 mmol/L Normal 3.5-5.1 [facility] Comment on above: Performed By: #### L 503.0105, L500.4050, L506.1000, L100.0500, L501.9520, L506.0400 ####[facility] [address] [place], [address] Sodium [Moles/Vol] 139 mmol/L Normal 136-145 [facility] Comment on above: Performed By: #### L 503.0105, L500.4050, L506.1000, L100.0500, L501.9520, L506.0400 ####[facility] [address] [place], [address] T PROT 6.8 g/dL Normal 6.4-8.[address] [facility] Comment on above: Performed By: #### L 503.0105, L500.4050, L506.1000, L100.0500, L501.9520, L506.0400 ####[facility] [address] [place], [address] Urea nitrogen [Mass/Vol] 23 mg/dL High 7-[address] [facility] Comment on above: Performed By: #### L 503.0105, L500.4050, L506.1000, L100.0500, L501.9520, L506.0400 ####[facility] [address] [place], [address] T4 Free Directon 01-27-2024 T4 FREE DIRECT 1.48 ng/dL High 0.76-1.[address] [facility] Comment on above: Performed By: #### L 503.0105, L500.4050, L506.1000, L100.0500, L501.9520, L506.0400 ####[facility] [facility] [id number] [place], [address] Thyroid Stim Hormone (TSH)on 01-27-2024 TSH 0.20 uIU/mL Low 0.358-3.[address] [facility] Comment on above: Performed By: #### L 503.0105, L500.4050, L506.1000, L100.0500, L501.9520, L506.0400 ####[facility] [id number] [place], [address] Vitamin B12on 01-27-2024 Cobalamin (Vitamin B12) [Mass/Vol] 562 pg/mL Normal 211-[address] [facility] Comment on above: Performed By: #### L 503.0105, L500.4050, L506.1000, L100.0500, L501.9520, L506.0400 ####[facility] [id number] [place], [address] Vitamin D,25 Hydroxyon 01-26 Vitamin D 25-OH 89.1 ng/mL Normal [facility] Comment on above: Result Comment: Ro min D 25(OH) Status Range Deficiency <20 ng/mL (50nmol/L) Insufficiency 20 - 30 ng/mL (50 - 75 nmol/L) Sufficiency 30 - 100 ng/mL (75 - 250 nmol/L) Toxicity >100 ng/mL (>250 nmol/L) Performed By: #### L 503.0105, L500.4050, L506.1000, L100.0500, L501.9520, L506.0400 ####[facility] [id number] [place], [address] Knee 4 or More Viewson 11-05 Knee 4 or More Views [facility] Imaging Services [address] [place] [address] Knee 4 or More Views MR#: [id number] Acct: [id number] Name: LIANNE BRISENO Rep #: [id number] : 1955 F 68 From: Macho Larson MD PCP: Dr. Jasmyne Leach MD Status: REG CLI Study: Knee 4 or More Views Date of Exam: 11/06/23 Exam# [id number] Ordering Dr: Jasmyne Leach [id number] STUDY: X-RAY - LEFT KNEE REASON FOR EXAM: Female, 68 years old. pain TECHNIQUE: 4 view(s) of the knee. COMPARISON: None. FINDINGS: Normal visualized distal femur. Normal visualized proximal tibia and fibula. Normal proximal tibiofibular articulation. There is severe degenerative arthrosis of the medial femorotibial compartment with severe joint space narrowing. There is mild degenerative arthrosis of the lateral femorotibial compartment. There is mild degenerative arthrosis of the patellofemoral articulation. There is a moderate volume joint effusion. The soft tissue structures are unremarkable. RAD/Knee 4 or More Views IMPRESSION: Degenerative arthrosis. Electronically Signed: Macho Larson MD at 23:55 EDT , CC: Dr. Jasmyne Leach MD Wire Splicer: Signed Normal [facility] Knee 4 or More Views [facility] Imaging Services [address] [place] [id number] Knee 4 or More Views MR#: [id number] Acct: [id number] Name: LIANNE BRISENO ROBIN Rep #: [id number] : 1955 F 68 From: Macho Larson MD PCP: Dr. Jasmyne Leach MD Status: REG CLI Study: Knee 4 or More Views Date of Exam: 11/06/23 Exam# [id number] Ordering Dr: Jasmyne Leach [id number] STUDY: X-RAY - RIGHT KNEE REASON FOR EXAM: Female, 68 years old. pain -- original e order states bilateral knee, right knee pain TECHNIQUE: 4 view(s) of the knee. COMPARISON: None. FINDINGS: Normal visualized distal femur. Normal visualized proximal tibia and fibula. Normal proximal tibiofibular articulation. There is severe degenerative arthrosis of the medial femorotibial compartment with severe joint space narrowing. There is mild degenerative arthrosis of the lateral femorotibial compartment. There is mild degenerative arthrosis of the patellofemoral articulation. There is a moderate volume joint effusion. The soft tissue structures are unremarkable. RAD/Knee 4 or More Views IMPRESSION: Degenerative arthrosis. Electronically Signed: Macho Larson MD at 23:55 EDT , CC: Dr. Jasmyne Leach MD Wire Splicer: Signed Normal [facility] L/S Spine w Bend Min 6 Vwon 11-06-2023 L/S Spine w Bend Min 6 Vw [facility] Imaging Services [address] [place] [address] L/S Spine w Bend Min 6 Vw MR#: [id number] Acct: [id number] Name: LIANNE BRISENO ROBIN Rep #: [id number] : 1955 F 68 From: George Barry PCP: Dr. Jasmyne Leach MD Status: REG CLI Study: L/S Spine w Bend Min 6 Vw Date of Exam: Exam# [id number] Ordering Dr: Jasmyne Leach [id number] STUDY: X-RAY - LUMBOSACRAL SPINE REASON FOR EXAM: Female, 68 years old. bilateral leg pain. hx ddd. TECHNIQUE: 5 view(s) of the lumbosacral spine were obtained. COMPARISON: MR lumbar spine March 28, 2020 FINDINGS: Oblique projections negative for pars defects. Sacroiliac joints normal. Normal lumbar lordosis. Mild dextroconvex scoliosis. There is normal alignment of the vertebrae. Ossification anterior longitudinal ligament possible disc protrusion anteriorly at L5-S1. Normal vertebral bodies and endplates. Disc space narrowing L2-3. Limited range of motion. No arminda instability but sensitivity/specificit y limited due to limited range of motion.. Normal bilateral sacral ala, sacroiliac joints, and visualized sacrum. Normal visualized soft tissue structures. RAD/L/S Spine w Bend Min 6 Vw IMPRESSION: Limited range of motion. Degenerative disc disease as above. MRI would be more sensitive if clinically warranted. Electronically Signed: George Ramirez MD at 21:02 EDT , CC: Dr. Jasmyne Leach MD Wire Splicer: Signed Normal [facility] Basophil percentageOrdered B y: Dr. Leach on 11-27-2022 Bilirubin [Mass/Vol] 0.60 mg/dL 0.20-1.00 [facility] Comment on above: For patients on eltr ombopag therapy, use of Dimension [place] TBIL is not recommended. Chloride [Moles/Vol] 102 mmol/L 98-107 [facility] Glucose [Mass/Vol] 88 mg/dL 74-106 [facility] Potassium [Moles/Vol] 3.5 mmol/L 3.5-5.1 [facility] Protein [Mass/Vol] 7.9 g/dL 6.4-8.2 [facility] Sodium [Moles/Vol] 136 mmol/L 136-145 [facility] WBC (Bld) [#/Vol] 6.6 10*3/uL 4.4-11.0 [facility] Blood erythrocytes count (nu mber/volume)Ordered By: Dr. Leach on 11-27-2022 RBC (Bld) [#/Vol] 4.55 10*6/uL 4.2-5.4 [facility] Blood hemoglobin measurement (mass/volume)Ordered By: Dr. Leach on 11-27-2022 Hemoglobin (Bld) [Mass/Vol] 13.7 g/dL 12.0-15.[address] [facility] Blood platelet mean volumeOr dered By: Dr. Leach on 11-27-2022 Platelet mean volume (Bld) [Entitic vol] 9.7 fL 6.2-12.[address] [facility] Determination of erythrocyte mean corpuscular volume (MCV)Ordered By: Dr. Leach on 11-27-2022 MCV (RBC) [Entitic vol] 92.1 fL 81-99 [facility] Erythrocyte sedimentation ra teOrdered By: Dr. Leach on 11-27-2022 ESR (Bld) [Velocity] 17 mm/h 0-30 [facility] Hematocrit Auto (Bld) [Volum e fraction]Ordered By: Dr. Leach on 11-27-2022 Hematocrit (Bld) [Volume fraction] 41.9 % 37-[address] [facility] Iron measurement (mass/mass) Ordered By: Dr. Leach on 11-27-2022 Iron (Unsp spec) [Mass/Mass] 109 ug/dL 50-[address] [facility] Laboratory - Chemistry and C hemistry - challengeOrdered By: Dr. Leach on 11-27-2022 ALP [Catalytic activity/Vol] 175 U/L 45-[address] [facility] ALT [Catalytic activity/Vol] 40 U/L 13-[address] [facility] CO2 [Moles/Vol] 25.0 mmol/L 21.0-32.[address] [facility] Cobalamin (Vitamin B12) [Mass/Vol] 996 pg/mL 211-[address] [facility] Globulin (S) [Mass/Vol] 4.3 g/dL 2.2-4.2 [facility] Urea nitrogen/Creatinine [Mass ratio] 27.9 mg/mg 10-[address] [facility] Laboratory - Hematology and Cell countsOrdered By: Dr. Leach on 11-27-2022 Erythrocyte distribution width (RBC) [Entitic vol] 50.3 fL 35.1-43.[address] [facility] Erythrocyte distribution width (RBC) [Ratio] 14.7 % 11.6-14.[address] [facility] MCH (RBC) [Entitic mass] 30.1 pg 27.0-32.[address] [facility] MCHC Auto (RBC) [Mass/Vol]Or dered By: Dr. Leach on 11-27-2022 MCHC (RBC) [Mass/Vol] 32.7 g/dL 32-36 [facility] No Panel InformationOrdered By: Dr. Leach on 11-27-2022 Estimated GFR (MDRD) Amer 84 mL/min >[address] [facility] Comment on above: GFR Calc Estimated GFR (MDRD) Non-Af Amer 70 mL/min >[address] [facility] Comment on above: Non- GFR Calc Vitamin D 25-Hydroxy 34.2 ng/mL [facility] Comment on above: Vitamin D 25(OH) Sta tus Range Deficiency <20 ng/mL (50nmol/L) Insufficiency 20 - 30 ng/mL (50 - 75 nmol/L) Sufficiency 30 - 100 ng/mL (75 - 250 nmol/L) Toxicity >100 ng/mL (>250 nmol/L) Platelets bldOrdered By: Dr. Leach on 11-27-2022 Platelets (Bld) [#/Vol] 313 10*3/uL 150-[address] [facility] Serum or plasma albumin crystal urement (mass/volume)Ordered By: Dr. Leach on 11-27-2022 Albumin [Mass/Vol] 3.6 g/dL 3.2-5.0 [facility] Serum or plasma albumin/glob ulin mass ratioOrdered By: Dr. Leach on 11-27-2022 Albumin/Globulin [Mass ratio] 0.8 {ratio} 0.9-2.[address] [facility] Serum or plasma calcium crystal urement (mass/volume)Ordered By: Dr. Leach on 11-27-2022 Calcium [Mass/Vol] 9.3 mg/dL 8.5-10.1 [facility] Serum or plasma cortisol margoth surement (mass/volume)Ordered By: Dr. Leach on 11-27-2022 Cortisol [Mass/Vol] 10.20 ug/dL 3.44-22.45 [facility] Comment on above: Adult (AM) 5.27 - 22 .45 ug/dL Adult (PM) 3.44 - 16.76 ug/dLPlease note revised CORTISOL reference range effective 2019. Serum or plasma creatinine m easurement (mass/volume)Ordered By: Dr. Leach on 11-27-2022 Creatinine [Mass/Vol] 0.86 mg/dL 0.55-1.02 [facility] Comment on above: The validity of the calculated GFR & GFRAA in patients over 70 years has not been determined. Clinical correlation is essential. Serum or plasma ferritin margoth surement (mass/volume)Ordered By: Dr. Leach on 11-27-2022 Ferritin [Mass/Vol] 105 ng/mL 8-252 [facility] Serum or plasma urea nitroge n measurement (mass/volume)Ordered By: Dr. Leach on 11-27-2022 Urea nitrogen [Mass/Vol] 24 mg/dL 7-[address] [facility] Thin prep Papanicolaou smear with manual screeningOrdered By: Dr. Leach on 11-27-2022 Thin prep Papanicolaou smear with manual screening 33 U/L 15-[address] [facility] Thin prep Papanicolaou smear with manual screening 9 5-[address] [facility] No Panel InformationOrdered By: Dr. Leach on 11-22-2022 Thyroid Stimulating Hormone (TSH) 1.14 uIU/mL 0.358-3.[address] [facility] No Panel Informationon 05-14 Thyroid Stimulating Hormone (TSH) 0.02 uIU/mL 0.358-3.[address] [facility] Work Phone: Basophil percentageon 2021 Bilirubin [Mass/Vol] 0.30 mg/dL 0.20-1.00 [facility] Work Phone: Comment on above: For patients on eltr ombopag therapy, use of Dimension [place] TBIL is not recommended. Chloride [Moles/Vol] 105 mmol/L 98-107 [facility] Work Phone: Cholesterol [Mass/Vol] 175 mg/dL <200 [facility] Work Phone: [phone] Comment on above: <200 mg/dL Desirable 200-240 mg/dL Borderline >240 mg/dL High Risk Glucose [Mass/Vol] 84 mg/dL 74-106 [facility] Work Phone: [phone] Potassium [Moles/Vol] 3.3 mmol/L 3.5-5.1 [facility] Work Phone: [phone] Protein [Mass/Vol] 7.2 g/dL 6.4-8.2 [facility] Work Phone: [phone] Sodium [Moles/Vol] 140 mmol/L 136-145 [facility] Work Phone: [phone] Triglyceride [Mass/Vol] 403 mg/dL [facility] Work Phone: [phone] Comment on above: The drugs N-Acetylcy steine and Metamizole may falsely depress this assay. TRIGLYCERIDE IS GREATER THAN 400 mg/dL. LDL RESULT IS INVALID AND WILL NOT BE REPORTED.Serum Triglycerides Reference Interval Normal <150 mg/dL Borderline high 150 - 199 mg/dL High 200 - 499 mg/dL Very High > or = 500 mg/dL Laboratory - Chemistry and C hemistry - challengeon 10-24-2021 ALP [Catalytic activity/Vol] 190 U/L 45-[address] [facility] Work Phone: [phone] ALT [Catalytic activity/Vol] 29 U/L 13-[address] [facility] Work Phone: [phone] CO2 [Moles/Vol] 28.0 mmol/L 21.0-32.[address] [facility] Work Phone: [phone] Globulin (S) [Mass/Vol] 3.8 g/dL 2.2-4.2 [facility] Work Phone: [phone] Urea nitrogen/Creatinine [Mass ratio] 16.3 mg/mg 10-[address] [facility] Work Phone: No Panel Informationon 10-24 Estimated GFR (MDRD) Amer 101 mL/min >[address] [facility] Work Phone: Comment on above: GFR Calc Estimated GFR (MDRD) Non-Af Amer 83 mL/min >[address] [facility] Work Phone: Comment on above: Non- GFR Calc Thyroid Stimulating Hormone (TSH) 0.23 uIU/mL 0.358-3.[address] [facility] Work Phone: Vitamin D 25-Hydroxy 40.6 ng/mL [facility] Work Phone: Comment on above: Vitamin D 25(OH) Sta tus Range Deficiency <20 ng/mL (50nmol/L) Insufficiency 20 - 30 ng/mL (50 - 75 nmol/L) Sufficiency 30 - 100 ng/mL (75 - 250 nmol/L) Toxicity >100 ng/mL (>250 nmol/L) Serum or plasma albumin crystal urement (mass/volume)on 10-24-2021 Albumin [Mass/Vol] 3.4 g/dL 3.2-5.0 [facility] Work Phone: [phone] Serum or plasma albumin/glob ulin mass ratioon 10-24-2021 Albumin/Globulin [Mass ratio] 0.9 {ratio} 0.9-2.[address] [facility] Work Phone: Serum or plasma calcium crystal urement (mass/volume)on 10-24-2021 Calcium [Mass/Vol] 8.8 mg/dL 8.5-10.1 [facility] Work Phone: [phone] Serum or plasma cholesterol in HDL measurement (mass/volume)on 10-24-2021 Cholesterol in HDL [Mass/Vol] 65 mg/dL [facility] Work Phone: [phone] Comment on above: The drugs N-Acetylcy steine and Metamizole may falsely depress this assay. Reference Range HDL <40 mg/dL Low HDL Cholesterol HDL >or= 60 mg/dL High HDL Cholesterol Serum or plasma cholesterol in VLDL measurement (mass/volume)on 10-24-2021 Cholesterol in VLDL [Mass/Vol] TNP [facility] Work Phone: [phone] Comment on above: Test not performed Serum or plasma creatinine m easurement (mass/volume)on 10-24-2021 Creatinine [Mass/Vol] 0.74 mg/dL 0.55-1.02 [facility] Work Phone: Comment on above: The validity of the calculated GFR & GFRAA in patients over 70 years has not been determined. Clinical correlation is essential. Serum or plasma low density lipoprotein (LDL) cholesterol measurement (mass/volume)on 10-24-2021 Cholesterol in LDL [Mass/Vol] TNP [facility] Work Phone: Comment on above: Test not performed Serum or plasma urea nitroge n measurement (mass/volume)on 10-24-2021 Urea nitrogen [Mass/Vol] 12 mg/dL 7-[address] [facility] Work Phone: Thin prep Papanicolaou smear with manual screeningon 10-24-2021 Thin prep Papanicolaou smear with manual screening 25 U/L 15-[address] [facility] Work Phone: Thin prep Papanicolaou smear with manual screening 7 5-[address] [facility] Work Phone: Vital Signs Date Time Vital Sign Value Performing Clinician Facility 01-04-2025 10:38-0400 Body height 157.5 cm Megan Renee MD Work Phone: [facility] 01-04-2025 10:38-0400 Body mass index (BMI) [Ratio] 29.81 kg/m2 Megan Rneee MD Work Phone: [facility] 01-04-2025 10:38-0400 Body weight 73.94 kg Megan Renee MD Work Phone: [facility] 01-04-2025 10:38-0400 Diastolic blood pressure 78 mm[Hg] Megan Renee MD Work Phone: [facility] 01-04-2025 10:38-0400 Heart rate 60 /min Megan Renee MD Work Phone: [facility] 01-04-2025 10:38-0400 Systolic blood pressure 145 mm[Hg] Megan Renee MD Work Phone: [facility] 12-14-2024 13:14-0400 Body mass index (BMI) [Ratio] 29.96 kg/m2 Gunjan Hector MD Work Phone: [facility] 12-14-2024 13:14-0400 Body weight 74.3 kg Gunjan Hector MD Work Phone: [facility] 12-14-2024 13:14-0400 Diastolic blood pressure 76 mm[Hg] Gunjan Hector MD Work Phone: [facility] 12-14-2024 13:14-0400 Systolic blood pressure 114 mm[Hg] Gunjan Hector MD Work Phone: [facility] 10-26-2024 13:02-0400 Body height 157.5 cm Megan Renee MD Work Phone: [facility] 10-26-2024 13:02-0400 Body mass index (BMI) [Ratio] 30.73 kg/m2 Megan Renee MD Work Phone: [facility] 10-26-2024 13:02-0400 Body temperature 97.11 [degF] Megan Renee MD Work Phone: [facility] 10-26-2024 13:02-0400 Body weight 76.2 kg Megan Renee MD Work Phone: [facility] 10-26-2024 13:02-0400 Diastolic blood pressure 75 mm[Hg] Megan Renee MD Work Phone: [facility] 10-26-2024 13:02-0400 Heart rate 75 /min Megan Renee MD Work Phone: [facility] 10-26-2024 13:02-0400 Systolic blood pressure 119 mm[Hg] Megan Renee MD Work Phone: [facility] 08-17-2024 13:34-0500 Body temperature 97.5 [degF] Megan Renee MD Work Phone: [facility] 08-17-2024 13:34-0500 Diastolic blood pressure 82 mm[Hg] Megan Renee MD Work Phone: [facility] 08-17-2024 13:34-0500 Heart rate 71 /min Megan Renee MD Work Phone: [facility] 08-17-2024 13:34-0500 SaO2% (BldA) [Mass fraction] 97 % Megan Renee MD Work Phone: [facility] 08-17-2024 13:34-0500 Systolic blood pressure 123 mm[Hg] Megan Renee MD Work Phone: [facility] 02-24-2024 09:46-0400 Body height 157.5 cm Demond Finelli DO Work Phone: [facility] 02-24-2024 09:46-0400 Body mass index (BMI) [Ratio] 30.72 kg/m2 Demond Finelli DO Work Phone: [facility] 02-24-2024 09:46-0400 Body weight 76.2 kg Demond Finelli DO Work Phone: [facility] 02-24-2024 09:46-0400 Diastolic blood pressure 71 mm[Hg] Demond Finelli DO Work Phone: [facility] 02-24-2024 09:46-0400 Heart rate 69 /min Demond Finelli DO Work Phone: [facility] 02-24-2024 09:46-0400 Systolic blood pressure 108 mm[Hg] Demond Finelli DO Work Phone: [facility] 07-24-2023 12:33-0500 Body height 157.48 cm [facility] 04-27-2023 06:59-0400 Body mass index (BMI) [Ratio] 29.8 kg/m2 [facility] 04-27-2023 06:59-0400 Body temperature 97.6 [degF] [facility] 04-27-2023 06:59-0400 Body weight 73.93 kg [facility] 04-27-2023 06:59-0400 Diastolic blood pressure 81 mm[Hg] [facility] 04-27-2023 06:59-0400 Heart rate 78 /min [facility] 04-27-2023 06:59-0400 Respiratory rate 18 /min [facility] 04-27-2023 06:59-0400 SaO2% (BldA) [Mass fraction] 96 % [facility] 04-27-2023 06:59-0400 Systolic blood pressure 159 mm[Hg] [facility] 06-13-2022 14:29-0500 Body height 157.[address] Balbir Leach Work Phone: [facility] Work Phone: 06-13-2022 14:29-0500 Body mass index (BMI) [Ratio] 32 kg/m2 Dr. Balbir Leach Work Phone: [facility] Work Phone: 06-13-2022 14:29-0500 Body weight 79.[address] Balbir Leach Work Phone: [facility] Work Phone: Encounters Encounter Date Encounter Type Care Provider Facility Start: 01-17-2025 End: 01-17-2025 Telephone encounter Gunjan Hector MD Work Phone: [facility] Comment on above: Refill Request Start: 01-04-2025 End: 01-04-2025 Patient encounter procedure Megan Renee MD Work Phone: Colorectal Surgery Comment on above: Rectocele (Primary D x); Midline cystocele; Grade III hemorrhoids Start: 01-04-2025 End: 01-04-2025 ambulatory MEGAN RENEE Facility:[facility] Start: 12-14-2024 End: 12-17-2024 Follow-up encounter Gunjan Hector MD Work Phone: URO/Gynecology Start: 12-14-2024 End: 12-14-2024 Patient encounter procedure Gunjan Hector MD Work Phone: URO/Gynecology Comment on above: Midline cystocele (P rimary Dx); Rectocele; Complete uterovaginal prolapse; Urinary frequency; Intussusception (HCC); Leukocytes in urine; Vaginal atrophy; Vaginal vault prolapse, posthysterectomy; Stress incontinence in female; Intussusception of rectum (HCC) Start: 12-14-2024 End: 12-14-2024 ambulatory GUNJAN HECTOR Facility:[facility] Start: 10-26-2024 End: 10-26-2024 Patient encounter procedure Megan Renee MD Work Phone: Colorectal Surgery Comment on above: Hemorrhoids, interna l, with bleeding (Primary Dx); Hemorrhoids, unspecified hemorrhoid type; Rectocele; Midline cystocele Start: 10-26-2024 End: 10-26-2024 ambulatory MEGAN RENEE Facility:[facility] Start: 09-15-2024 End: 09-15-2024 ambulatory Luz Marina Khalil Facility:[facility] Start: 09-05-2024 ambulatory Stephania Rodriguez [facility] Fa cility:[facility] Start: 09-01-2024 End: 09-01-2024 ambulatory Stephania Rodriguez [facility] Work Phone: [facility] Work Phone: Start: 09-01-2024 End: 09-01-2024 Patient encounter procedure [facility] Stephania Rodriguez [facility] -Radiology, [employer] Work Phone: Start: 09-01-2024 End: 09-01-2024 ambulatory Stephania Rodriguez [facility] Facility:[facility] Start: 08-17-2024 End: 08-17-2024 ambulatory JASMYNE LEACH Facility:[facility] Start: 08-17-2024 End: 08-17-2024 Patient encounter procedure Megan Renee MD Work Phone: Colorectal Surgery Comment on above: Grade III hemorrhoid s (Primary Dx); Hemorrhoids, internal, with bleeding; Midline cystocele; Rectocele Start: 08-04-2024 End: 08-04-2024 Patient encounter procedure C Stephania Carlos [facility], [facility] [place] Start: 08-04-2024 End: 08-04-2024 ambulatory Stephania Rodriguez [facility] Facility:[facility] Start: 06-08-2024 End: 06-08-2024 Patient encounter procedure [facility] Stephania Carlos [facility], [place] Start: 06-08-2024 End: 06-08-2024 ambulatory Marilynyeyo Rodriguez Facility:[facility] Start: 04-22-2024 End: 04-22-2024 ambulatory Stephania Rodriguez [facility] Facility:[facility] Start: 03-23-2024 End: 03-23-2024 ambulatory Stephania [facility] Facility:[facility] Start: 03-16-2024 End: 03-16-2024 ambulatory Stephania [facility] Facility:[facility] Start: 03-15-2024 End: 03-15-[facility] Start: 03-11-2024 End: 03-11-2024 Telephone encounter Demond Barnard DO Work Phone: General Surgery Comment on above: Appointment Start: 02-24-2024 End: 02-24-2024 ambulatory JASMYNE LEACH Facility:[facility] Start: 02-24-2024 End: 02-24-2024 Office consultation new/estab patient 40 min Demond Barnard DO Work Phone: General Surgery Comment on above: Internal hemorrhoid, bleeding (Primary Dx); Female genital prolapse, unspecified type Start: 02-05-2024 End: 02-05-2024 ambulatory Obinna Soto Facility:[facility] Start: 02-04-2024 End: 02-04-2024 ambulatory Stephania Rodriguez [facility] Facility:[facility] Start: 01-27-2024 End: 01-27-2024 ambulatory Stephania Rodriguez [facility] Facility:[facility] Start: 11-06-2023 End: 11-06-[address] [facility] Work Phone: Start: 11-06-2023 End: 11-06-2023 Patient encounter procedure [facility]-Radiology, [employer] Work Phone: Start: 11-06-2023 End: 11-06-2023 ambulatory Jasmyne Leach Facility:[facility] Start: 07-24-2023 End: 07-24-[address] [facility] Work Phone: Start: 07-24-2023 End: 07-24-2023 Patient encounter procedure [facility]-Outpatient Bone Densitometry Work Phone: Start: 04-27-2023 End: 04-27-2023 Emergency department patient visit [facility]-Emergency Department Work Phone: Start: 12-27-2022 End: 12-27-[address] Balbir Leach Work Phone: [facility] Work Phone: Start: 12-27-2022 End: 12-27-[address] Balbir Leach Work Phone: [facility], [facility] Work Phone: Start: 12-04-2022 Non-patient / Non-visit Dr. Ruchi Leach Work Phone: [facility] Start: 12-04-2022 End: 12-04-[address] Balbir Leach Work Phone: [facility] Work Phone: Start: 12-04-2022 End: 12-04-2022 Patient encounter procedure [facility]-Cardiovascula r Services Start: 11-27-2022 End: 11-27-[address] Balbir Leach Work Phone: [facility] Work Phone: Start: 11-27-2022 End: 11-27-2022 Patient encounter procedure [facility]-Laboratory, [employer] Start: 11-22-2022 End: 11-22-[address] [facility] Work Phone: Start: 11-22-2022 End: 11-22-2022 Patient encounter procedure [facility] Start: 10-15-2022 End: 10-15-[address] [facility] Work Phone: Start: 10-15-2022 End: 10-15-2022 Discharged Recurring [facility]-Physical Therapy Start: 06-13-[address] Balbir Leach Work Phone: [facility] Start: 06-04-2022 End: 06-04-[address] Balbir Leach Work Phone: [facility] Work Phone: Start: 06-04-2022 End: 06-04-[address] Balbir Leach Work Phone: [facility]-Outpatient Breast Imaging Start: 05-14-2022 End: 05-14-[address] Balbir Leach Work Phone: [facility] Start: 10-24-2021 End: 10-24-2021 Patient encounter procedure [facility] Procedures Date Procedure Procedure Detail Performing Clinician Start: 12-14-2024 Urnls dip stick/tabl et rgnt auto w/o microscopy Gunjan Hector MD Work Phone: Start: 09-01-2024 X-ray of lumbar spin e, two or three views Stephania Rodriguez SECTION GANG-C Work Phone: Start: 09-01-2024 Plain x-ray of wrist Marco A THOMASC Work Phone: Start: 09-01-2024 Xray thoracic spine Joseline Rodriguez NP-C Work Phone: Start: 11-06-2023 Complete x-ray serie s of lumbar spine with bending views Start: 11-06-2023 End: 11-06-2023 Radiologic examination of knee Start: 07-24-2023 Dual energy X-ray absorptiometry Start: 12-27-[address] Balbir Leach Work Phone: Start: 12-04-2022 Cardiovascular stres s test using pharmacologic stress agent Start: 11-27-2022 Plain chest X-ray Start: 06-04-2022 Screening mammography Asha Leach Work Phone: Plan of Treatment Date Care Activity Detail Author Start: 2028 RSV Vaccine (1 - 1-dose 75+ series) RSV Vaccine (1 - 1-dose 75+ series) [facility] Start: 06-20-2025 Subsequent hospital visit by physician 06/20/2025 Hospital Encounter [facility] Operating Room [address] [place] [address] [place] [address] [place] [address] Rectocele [N81.6] [facility] Operating Room Comment on above: Rectocele [N81.6] Start: 03-07-2025 Influenza vaccination [facility] Start: 01-04-2025 End: 01-04-2025 Patient encounter procedure 01/04/2025 10:40 AM EDT Office Visit Colorectal Surgery [address] [place], [place] [id number] [place] [address] [place] [address] follow up rectal prolapse, surgical consult Colorectal Surgery Comment on above: follow up rectal prolapse, surgical cons ult Start: 12-14-2024 End: 12-14-2024 Patient encounter procedure 12/14/2024 1:30 PM EDT Office Visit [facility]/Gynecology [address] [place], [place] [id number] Gunjan Hector MD [address] [place], [place] [id number] Possable Pelvic organ prolapes [facility]Gynecology Comment on above: Possable Pelvic organ prolapes Start: 07-07-2024 Advance Directive Discussion Advance Directive Discussion [facility] Start: 04-15-2024 End: 04-15-2024 Patient encounter procedure 04/15/2024 9:30 AM EDT Office Visit General Surgery [address] [address] Demond Barnard, DO [address] [place] [address] LIGATION OF INTERNAL HEMORRHOIDS 2 OR MORE COLUMNS/GROUPS VIA MULTIPLE SUTURE LIGATION W/O IMAGE GUIDANCE [00054] General Surgery Comment on above: LIGATION OF INTERNAL HEMORRHOIDS 2 OR MO RE COLUMNS/GROUPS VIA MULTIPLE SUTURE LIGATION W/O IMAGE GUIDANCE [94880] Start: 03-29-2024 End: 03-29-2024 Admission to same day surgery center 03/29/2024 7:30 AM EDT - 03/29/2024 8:39 AM EDT Surgery [facility] Surgery [address] [place] [address] Demond Barnard, DO [address] [place] [address] LIGATION OF INTERNAL HEMORRHOIDS 2 OR MORE COLUMNS/GROUPS VIA MULTIPLE SUTURE LIGATION W/O IMAGE GUIDANCE KITTY with RAR [facility] Surgery Comment on above: LIGATION OF INTERNAL HEMORRHOIDS 2 OR MO RE COLUMNS/GROUPS VIA MULTIPLE SUTURE LIGATION W/O IMAGE GUIDANCE KITTY with RAR Start: 03-29-2024 End: 03-29-2024 Int hrhc by ligation 2+ hroid w/o img gdn LIGATION OF INTERNAL HEMORRHOIDS 2 OR MORE COLUMNS/GROUPS VIA MULTIPLE SUTURE LIGATION W/O IMAGE GUIDANCE Internal hemorrhoid, bleeding 03/29/2024 7:30 AM EDT ME OR Start: 03-29-2024 Subsequent hospital visit by physician 03/29/2024 7:30 AM EDT Hospital Encounter [facility] Surgery [address] [place] [address] Demond Barnard, DO [address] [place] [address] Internal hemorrhoid, bleeding [K64.8] [facility] Surgery Comment on above: Internal hemorrhoid, bleeding [K64.8] Start: 03-07-2024 Covid-19 Vaccine ( season) Covid-19 Vaccine ( season) [facility] Start: 03-07-2024 Covid-19 Vaccine ( season) Covid-19 Vaccine ( season) [facility] Start: 03-07-2024 Influenza vaccination Influenza Vaccine (#1) [facility] Start: 07-07-2023 Advance Directive Discussion Advance Directive Discussion [facility] Start: 04-27-[address] [facility] Start: 03-07-2023 Covid-19 Vaccine ( season) Covid-19 Vaccine () [facility] Start: 01-08-2022 Diabetes Screening Diabetes Screening [facility] Start: 10-25-2020 Pneumococcal Vaccine: 50+ (2 of 2 - PPSV23) Pneumococcal Vaccine: 50+ (2 of 2 - PPSV23) [facility] Start: 10-25-2020 Pneumococcal Vaccine: 65+ (2 of 2 - PPSV23 or PCV20) Pneumococcal Vaccine: 65+ (2 of 2 - PPSV23 or PCV20) [facility] Start: 2018 Screening for osteoporosis Bone Density Screening [facility] Start: 10-05-2018 Medicare Annual Wellness Visit Medicare Annual Wellness Visit [facility] Start: 2013 RSV Vaccine (1 - 1-dose 60+ series) RSV Vaccine (1 - 1-dose 60+ series) [facility] Start: 10-17-2010 Screening for malignant neoplasm of breast Mammogram Screening [facility] Start: 10-21-2003 Shingrix Vaccine (1 of 2) Shingrix Vaccine (1 of 2) [facility] Start: 1998 Lipid panel Lipid Screening [facility] Start: 1998 Screening for malignant neoplasm of colon [facility] Start: 1972 Urine microalbumin profile DTaP,Tdap,Td Vaccine (1 - Tdap) [facility] Start: 10-21-1971 Annual PCP Team Chronic Disease Visit Annual PCP Team Chronic Disease Visit [facility] Start: 10-21-1971 Anxiety Screening Anxiety Screening [facility] Start: 10-21-1971 Depression Screening Depression Screening [facility] Start: 10-21-1971 Hepatitis C screening Hepatitis C Screening [facility] Bacteria identified in Urine by Culture BACTERIAL CULTURE, URINE Microbiology Routine Leukocytes in urine 12/14/2024 2:06 PM EDT [facility] Cystourethroscopy CYSTOURETHROSC OPY Vaginal vault prolapse, posthysterectomy Stress incontinence in female Intussusception of rectum (HCC) [facility] Laparoscopy colpopex y suspension vaginal apex ROBOTIC LAPAROSCOPIC COLPOPEXY Vaginal vault prolapse, posthysterectomy Stress incontinence in female Intussusception of rectum (HCC) [facility] Laparoscopy proctope xy prolapse ROBOTIC LAPAROSCOPY PROCTOPEXY Rectocele [facility] Patient Education ED Sciatica [facility] Work Phone: Patient referral [facility] Work Phone: End: 01-13-2026 RF Gastrointestinal tract upper Views W water soluble contrast PO XR DEFECOGRAPHY Radiology Routine Intussusception (HCC) 1 Occurrences starting 12/14/2024 until 01/13/2026 [facility] Work Phone: Comment on above: 1 Occurrences starting 12/14/2024 until 01/13/2026 Sling operation stre ss incontinence SLING SURGERY FOR STRESS INCONTINENCE W/ TENSION FREE VAG TAPE Vaginal vault prolapse, posthysterectomy Stress incontinence in female Intussusception of rectum (HCC) [facility] Payers Date Payer Category Payer Unknown 2023 Medicare [id number] 2023 Self-pay 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 2018 Private Health Insurance [employer] S UPPLEMENT A[employer]NA MEDICARE SUPPLEMENT [id number] 2018-Present [phone] [address] [address] [place] [address] Indemnity [id number] 2018 Medicare [id number] 2018 Private Health Insurance [facility] [id number] Unknown [id number] Unknown [facility] PACKAGE PLAN [id number] Unknown [id number] Unknown [id number] .462 Unknown [id number] .462 Unknown [id number] .462 Unknown [id number] .462 Unknown [id number] [id number] .462 Unknown [id number] .462 Unknown [id number] [id number] .462 Unknown [id number] [id number] .462 Unknown [id number] [id number] .462 Unknown [id number] [id number] .462 Unknown [id number] [id number] .462 Unknown [id number] [id number] .462 Unknown [id number] [id number] .462 Unknown [id number] [id number] .462 Unknown [id number] .462 Social History Date Type Detail Facility Start: 03-25-2020 End: 04-27-2023 Tobacco smoking status INIS Unknown if ever smoked [facility] Start: 03-25-2020 Non-smoker [facility] Start: 1955 Sex Assigned At Female W [facility] Start: 11-05-2018 End: 12-14-2024 Tobacco smoking status NHIS Ex-smoker [facility] Start: 09-21-1997 End: 09-22-2007 History of tobacco use Current smoker [facility] Start: 09-21-1997 End: 09-22-2007 History of tobacco use Cigarette Smoker [facility] Start: 11-05-2018 End: 02-24-2024 Cigarettes smoked current (pack per day) - Reported 0.5 [facility] Start: 11-05-2018 End: 12-14-2024 Tobacco use and exposure Smokeless tobacco non-user [facility] Start: 02-24-2024 End: 01-05-2025 Alcoholic beverage intake Current drinker of alcohol (finding) [facility] Start: 01-15-2019 End: 02-24-2024 Tobacco use panel [facility] PHQ2 Score 0 [facility] Start: 1955 Sex assigned at Not on file C [facility] Start: 04-27-2023 Tobacco smoking stat us INIS Never smoked tobacco (finding) [facility] Start: 09-12-2024 Sex Female (finding) [facility] Functional Status Date Assessment Result Facility 01-16-2019 Are you deaf, or do you have serious difficulty hearing No 01/16/2019 3:31 PM Cydney Vargas RN No [facility] 01-16-2019 Are you blind, or do you have serious difficulty seeing, even when wearing glasses No 01/16/2019 3:31 PM Cydney Vargas RN No [facility] 01-16-2019 Do you have serious difficulty walking or climbing stairs No 01/16/2019 3:31 PM Cydney Vargas RN [facility] 01-16-2019 Do you have difficul ty dressing or bathing No 01/16/2019 3:31 PM EDT Cydney Appiah RN No [facility] 01-16-2019 Because of a physica l, mental, or emotional condition, do you have difficulty doing errands alone such as visiting a physician's office or shopping No 01/16/2019 3:31 PM EDT Cydney Appiah RN No [facility] Mental Status Date Assessment Result Facility 01-16-2019 Because of a physica l, mental, or emotional condition, do you have serious difficulty concentrating, remembering, or making decisions No 01/16/2019 3:31 PM EDT Cydney Appiah RN No [facility] Clinical Notes 10-15-2022 to 01-17-2025 Telephone Encounter - Tone Huang - 01/17/2025 4:31 PM EDTTelephone Encounter - Tone Huang - 01/17/2025 4:31 PM Megan Carlisle MD - 01/04/2025 10:40 AM EDT Note Date & Type Note Facility 01-17-2025 Telephone encounter Note Patient: Lianne Briseno : 1955 Provider: Gunjan Hector MD Caller Phone #: [phone] (home) [phone] (cell) Reason for call: Patent requesting refill for estradiol (ESTRACE) 0.01 % (0.1 mg/gram) vaginal cream. Pharmacy: [id number] - [place], [place] Message routed to nurse triage Upcoming Appointments: Thank you Tone [facility] 01-17-2025 Miscellaneous Notes Patient: Lianne Briseno : 1955 Provider: Gunjan Hector MD Caller Phone #: [phone] (home) [phone] (cell) Reason for call: Patent requesting refill for estradiol (ESTRACE) 0.01 % (0.1 mg/gram) vaginal cream. Pharmacy: [id number] [place], [place] Message routed to nurse triage Upcoming Appointments: Thank you Tone documented in this encounter [facility] 01-04-2025 History of Present illness Narrative COLORECTAL SURGERY January 04, 2025 Lianne Briseno Chief Complaint: follow up/ rectal prolapse History of Present Illness: Lianne Briseno is a 69 year old female who presents to the office for a follow up evaluation of rectal prolapse. Prior A/P from 10/26/24: Lianne Briseno is a 68 year old female w/ PMHx of ERLIN/BSO w/Urethral Sling w/mesh (Apr 2008) vaginal prolapse who presents to the office for a follow up evaluation of hemorrhoids. She was last seen in the office on 08/17/24. She is here for continued prolapsing hemorrhoids and hemorrhoidal bleeding. She has an appointment with In December to discuss pelvic organ prolapse to determine if she would be a candidate for perineal repair or if she would require abdominal approach for the repair of internal rectal intussusception in office after examination Plan: -S/p hemorrhoid banding RA and LL -Follow up with Dr. Hector in December -RTC after Dr. Hector appointment A/P from Dr Hector on 12/14/24: 1) Stage III Cystocele, Stage III Uterovaginal Prolapse, Stage III Rectocele: - The patient was informed what type and stage of pelvic organ prolapse they presented with today at clinic. They were given a thorough explanation in clinic that included informational pamphlets with visual aids. - Options were dicussed today including observation, behavioral modifications (i.e., PFPT, pessary insertion) and surgical procedures. - Discussed surgical options including a combined abdominal procedure with Dr. Renee. Patient prefers surgery in May. - Patient was given informational pamphlets to read about these surgical procedures in-depth at home. 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 2) Possible Intussusception - An XR defecography was ordered today to assess possible intussusception. The patient was informed that this test needs to be completed at a facility. 3) Urinary Frequency - Will obtain UDS prior to surgery to see if a bladder sling will need to be placed OR to confirm the type of urinary incontinence the patient has before deciding on a treatment plan. - UDS (bladder testing) was ordered today to better assess the patient's urinary incontinence. The patient was informed to come to testing with their bladder full (but not overly full). The patient was given an informational pamphlet about this procedure to read at home. 4) Leukocytes in urine - UA today was abnormal and showed small leukocytes. Therefore, I am going to send the patient's urine for culture. If the results come back abnormal, I will either contact the patient either via telephone or MyChart and start antibiotics. 5) Vaginal Atrophy - The patient was informed to start vaginal estrogen. Rx Estrace ordered today. - They were informed to apply 1 pea-sized amount to the vagina with fingertip every night for 2 weeks then 3 times weekly. The R/B/A of using vaginal estrogen were discussed in-depth with the patient. They were given an informational handout with visual aids on how to apply the cream. - The patient was informed if the vaginal estrogen costs more than $50, to decline the medication and call the office for an alternate prescription at compounding pharmacy. RTC for UDS Interval updates: Rectal discomfort mostly resolved since RBL. Taking milk of magnesia PRN. Having BM every few days. Not straining most of the time. Trying to drink 6 cups of water daily. Denies splinting or rocking to have BM. No blood. Reports last colonoscopy 5 years ago was normal- records not available in EMR. PSH: uterovaginal prolapse and midline cystocele s/p ERLIN/BSO with CASSI from sigmoid to uterus and urethral sling w/ mesh (Dr Niecy Story, 2008) PAST MEDICAL HISTORY Diagnosis Date Calculus of kidney Dysmenorrhea Resolved Dyspareunia Resolved Dysthymic disorder Depression (non-psychotic) Excessive or frequent menstruation Heavy periods resolved Postsurgical hypothyroidism Premenstrual tension syndromes PMS resolved Primary hyperparathyroidism (HCC) Symptomatic menopausal or female climacteric states Unspecified urinary incontinence Resolved PAST SURGICAL HISTORY Procedure Laterality Date COLONOSCOPY FLX DX W/COLLJ SPEC WHEN PFRMD 2002 Colonoscopy PAST SURGICAL HISTORY OF L knee PAST SURGICAL HISTORY OF Parathyroidectomy THYROIDECTOMY TOTAL/COMPLETE R. side TOTAL ABDOMINAL HYSTERECT W/WO RMVL TUBE OVARY 05/03/2008 Hysterectomy, ERLIN./bso, bladder repair Current Outpatient Medications Medication Sig Dispense Refill OTC NUTRITIONAL SUPPLEMENT Take 2 tablets by mouth three times a day. Micaela- with meals estradiol (ESTRACE) 0.01 % (0.1 mg/gram) vaginal cream Apply 1 pea-sized amount of cream into the lower vagina with fingertip every night for 2 weeks then 3 times weekly. 127.5 g 3 levothyroxine sodium(SYNTHROID 112 MCG TAB) one tablet 6 days per week 0 multivitamins(DAILY MULTIVITAMIN TAB) Take one(1) tablet daily. 0 magnesium hydroxide (MILK OF MAGNESIA) 400 mg/5 mL suspension Take by mouth once daily as needed. No current facility-administered medications for this visit. ALLERGIES Allergen Reactions Bee Pollen FAMILY HISTORY Problem Relation Age of Onset Diabetes Father Social History Tobacco Use Smoking status: Former Current packs/day: 0.00 Average packs/day: 0.5 packs/day for 10.0 years (5.0 ttl pk-yrs) Types: Cigarettes Start date: 09/21/1997 Quit date: 09/22/2007 Years since quittin.3 Smokeless tobacco: Never Vaping Use Vaping status: Never Used Substance Use Topics Alcohol use: Yes Comment: very rare Drug use: No Physical Exam: BP 145/78 (BP Site: Left Arm, BP Position: Sitting) Pulse 60 Ht 157.5 cm (5' 2) Wt 73.9 kg (163 lb) LMP 04/07/2008 BMI 29.81 kg/m General Appearance: Well appearing, alert, in no acute distress, well-hydrated, well nourished. Abdomen: soft ND NT Assessment Assessment and Plan: Lianne Briseno is a 69 year old female with pelvic organ prolapse including cystocele, uterovaginal and rectocele. S/p RBL of prolapsing internal hemorrhoids with good result. A robotic ventral rectopexy with mesh was recommended for repair of her rectocele. This was discussed with the patient. The risks, benefits and details of this procedure were reviewed and the patient was also given a diagram and patient handout. This surgery is performed robotically through several small incisions. It involves dissection in the rectovaginal space with placement of mesh within this space. The mesh supports the anterior rectal wall and posterior vagina. The mesh provides support for the pelvic tissues that have excess elasticity which is currently resulting in a symptomatic rectocele. The risk of mesh erosion is 3%, but very few patients require repeat surgery for a mesh erosion (<1%). The overall goal of surgery is to correct the pelvic anatomy. Hopefully, by correcting this anatomy, the pelvic organs can work better. It can take several weeks to months to achieve a new normal bowel habits. Patients will commonly still need a stool softener or motility medications to keep their stools soft and regular after surgery (especially if they have a component of slow transit constipation). The surgery will be performed in combination with gynecology since there is multi-compartment pelvic organ prolapse. The surgery takes approximately 4 hours and is performed under general anesthesia. A full bowel prep is required the day prior to surgery. The patient will spend overnight in the hospital and then go home the following day. Patients are encouraged to be active (walking, shopping, light activity), but should avoid heavy lifting (>20 lbs) or strenuous exercise for 8 weeks after surgery. Medical Decision Making: Data Reviewed: Tests & Documents Reviewed/ordered: Review of prior notes from [facility] Review of Imaging: Defecography Review of Procedures / Tests: Colonoscopy, Manometry I have independently interpreted: Defecography I have discussed Lianne Briseno's treatment plan and/or results with the patient, Dr. Hector. I spent a total of 40 minutes on the date of the service which included preparing to see the patient, [id number] patient care, completing clinical documentation, obtaining and/or reviewing separately obtained history, counseling and educating the patient/family/caregiver, communicating with other HCPs (not separately reported), independently interpreting results (not separately reported), communicating results to the patient/family/caregiver, and care coordination (not separately reported). Megan Renee MD Colorectal Surgery documented in this encounter [facility] 01-04-2025 Note HNO ID: [id number] Author: MEGAN RENEE MD Service: ? Author Type: Physician Type: Progress Notes Filed: 01/05/2025 15:59 Note Text: COLORECTAL SURGERY January 04, 2025 Lianne Briseno Chief Complaint: follow up/ rectal prolapse History of Present Illness: Lianne Briseno is a 69 year old female who presents to the office for a follow up evaluation of rectal prolapse. Prior A/P from 10/26/24: Lianne Briseno is a 68 year old female w/ PMHx of ERLIN/BSO w/Urethral Sling w/mesh (Apr 2008) vaginal prolapse who presents to the office for a follow up evaluation of hemorrhoids. She was last seen in the office on 08/17/24. She is here for continued prolapsing hemorrhoids and hemorrhoidal bleeding. She has an appointment with In December to discuss pelvic organ prolapse to determine if she would be a candidate for perineal repair or if she would require abdominal approach for the repair of internal rectal intussusception in office after examination Plan: -S/p hemorrhoid banding RA and LL -Follow up with Dr. Hector in December -RTC after Dr. Hector appointment A/P from Dr Hector on 12/14/24: 1) Stage III Cystocele, Stage III Uterovaginal Prolapse, Stage III Rectocele: - The patient was informed what type and stage of pelvic organ prolapse they presented with today at clinic. They were given a thorough explanation in clinic that included informational pamphlets with visual aids. - Options were dicussed today including observation, behavioral modifications (i.e., PFPT, pessary insertion) and surgical procedures. - Discussed surgical options including a combined abdominal procedure with Dr. Renee. Patient prefers surgery in May. - Patient was given informational pamphlets to read about these surgical procedures in-depth at home. 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 2) Possible Intussusception - An XR defecography was ordered today to assess possible intussusception. The patient was informed that this test needs to be completed at a facility. 3) Urinary Frequency - Will obtain UDS prior to surgery to see if a bladder sling will need to be placed OR to confirm the type of urinary incontinence the patient has before deciding on a treatment plan. - UDS (bladder testing) was ordered today to better assess the patient's urinary incontinence. The patient was informed to come to testing with their bladder full (but not overly full). The patient was given an informational pamphlet about this procedure to read at home. 4) Leukocytes in urine - UA today was abnormal and showed small leukocytes. Therefore, I am going to send the patient's urine for culture. If the results come back abnormal, I will either contact the patient either via telephone or MyChart and start antibiotics. 5) Vaginal Atrophy - The patient was informed to start vaginal estrogen. Rx Estrace ordered today. - They were informed to apply 1 pea-sized amount to the vagina with fingertip every night for 2 weeks then 3 times weekly. The R/B/A of using vaginal estrogen were discussed in-depth with the patient. They were given an informational handout with visual aids on how to apply the cream. - The patient was informed if the vaginal estrogen costs more than $50, to decline the medication and call the office for an alternate prescription at compounding pharmacy. RTC for UDS Interval updates: Rectal discomfort mostly resolved since RBL. Taking milk of magnesia PRN. Having BM every few days. Not straining most of the time. Trying to drink 6 cups of water daily. Denies splinting or rocking to have BM. No blood. Reports last colonoscopy 5 years ago was normal- records not available in EMR. PSH: uterovaginal prolapse and midline cystocele s/p ERLIN/BSO with CASSI from sigmoid to uterus and urethral sling w/ mesh (Dr Niecy Story, 2007) PAST MEDICAL HISTORY Diagnosis Date Calculus of kidney Dysmenorrhea Resolved Dyspareunia Resolved Dysthymic disorder Depression (non-psychotic) Excessive or frequent menstruation Heavy periods resolved Postsurgical hypothyroidism Premenstrual tension syndromes PMS resolved Primary hyperparathyroidism (HCC) Symptomatic menopausal or female climacteric states Unspecified urinary incontinence Resolved PAST SURGICAL HISTORY Procedure Laterality Date COLONOSCOPY FLX DX W/COLLJ SPEC WHEN PFRMD 2001 Colonoscopy PAST SURGICAL HISTORY OF L knee PAST SURGICAL HISTORY OF Parathyroidectomy THYROIDECTOMY TOTAL/COMPLETE R. side TOTAL ABDOMINAL HYSTERECT W/WO RMVL TUBE OVARY 05/03/2008 Hysterectomy, ERLIN./bso, bladder repair Current Outpatient Medications Medication Sig Dispense Refill OTC NUTRITIONAL SUPPLEMENT Take 2 tablets by mouth three times a day. Nash- with meals estradiol (ESTRACE) 0.01 % (0.1 mg/gram) vaginal cream Apply 1 pea-sized amount of cream into the (more content not included)... [facility] 12-17-2024 Telephone encounter Note My apologies. Signed the order. Ct Preciado APRN.CNP [facility] 12-17-2024 Miscellaneous Notes My apologies. Signed the order. Ct Preciado APRN.CNP Call placed to patient. Re: Ct Preciado APRN.CNP to [facility] Ann81 Nurse Triage (Selected Message) RB 12/17/24 7:53 AM Result Note Can you please let this patient know her urine culture came back positive for a UTI and I have sent her antibiotic to the pharmacy on file. I also left a Gtxht message as well. The following approved medication requests have been transmitted electronically. Thank you! Ct Preciado APRN.CNP Verified name and . Relayed to patient above message. Patient verbalized understanding. This nurse and patient realized medication was never sent to her pharmacy. Will send message to [employer] team to send medication to her [facility] pharmacy in [place]. Patient verbalized understanding. documented in this encounter [facility] 12-17-2024 Telephone encounter Note Call placed to patient. Re: Ct Preciado APRN.CNP to [facility] A81 Nurse Triage (Selected Message) RB 12/17/24 7:53 AM Result Note Can you please let this patient know her urine culture came back positive for a UTI and I have sent her antibiotic to the pharmacy on file. I also left a MyChart message as well. The following approved medication requests have been transmitted electronically. Thank you! Ct Preciado APRN.CNP Verified name and . Relayed to patient above message. Patient verbalized understanding. This nurse and patient realized medication was never sent to her pharmacy. Will send message to [employer] team to send medication to her [facility] pharmacy in [place]. Patient verbalized understanding. [facility] 12-14-2024 History of Present illness Narrative Female Pelvic Medicine & Reconstructive Surgery Consult CHIEF COMPLAINT: Lianne Briseno is a 69 year old female who presents for consultation requested by Dr. Renee for an opinion regarding Pelvic Organ Prolapse . 08/17/2024 Last Visit from Referring Provider (Megan Renee): Assessment Assessment and Plan: Lianne Briseno is a 68 year old female with pelvic organ prolapse (cystocele and rectocele), grade II-III prolapsing internal hemorrhoids and likely internal rectal intussusception. Fiber Discussed RBL of internal hemorrhoids if still symptomatic on bowel regimen Referral to Dr. Hector for pelvic organ prolapse to determine if she would be a candidate for perineal repair or if she would require abdominal approach. If the latter, would plan on colonoscopy, defo and possibly manometry prior to surgery. = HISTORY OF PRESENT ILLNESS: Denies symptoms of UTI. She felt symptoms a few weeks ago, but they went away. Endorses prolapse symptoms for a few years. Reports muscle pulling away from bone in legs. Denies rectal prolapse. Hx of TVH. Endorses straining with bowel movements. She started taking enzymes to help with food digestion. Hemorrhoid surgery has also helped. 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 Yes, somewhat bothersome (2) Usually experience heaviness or dullness in the pelvic area? No (0) Usually have a bulge or something falling out that you can see or feel in your vaginal area? Yes, somewhat bothersome (2) Ever have to push on the vagina or around the rectum to have or complete a bowel movement? No (0) Usually experience a feeling of incomplete bladder emptying? Yes, somewhat bothersome (2) Ever have to push up on a bulge in the vaginal area with your fingers to start or complete urination? No (0) Feel you need to strain too hard to have a bowel movement? Yes, somewhat bothersome (2) Feel you have not completely emptied your bowels at the end of a bowel movement? Yes, somewhat bothersome (2) Usually lose stool beyond your control if your stool is well formed? No (0) Usually lose stool beyond your control if your stool is loose? Yes, somewhat bothersome (2) Usually lose gas from the rectum beyond your control? Yes, somewhat bothersome (2) Usually have pain when you pass your stool? No (0) Experience a strong sense of urgency and have to nails to the bathroom to have a bowel movement? Yes, somewhat bothersome (2) Does part of your bowel ever pass through the rectum and bulge outside during or after a bowel movement? No (0) Usually experience frequent urination? Yes, moderately bothersome (3), nocturia Usually experience urine leakage associated with a feeling of urgency, that is, a strong sensation of needing to go to the bathroom? No (0) Usually experience urine leakage related to coughing, sneezing or laughing? No (0) Usually experience small amounts of urine leakage (that is, drops)? No (0) Usually experience difficulty emptying your bladder? Yes, moderately bothersome (3) Usually experience pain or discomfort in the lower abdomen or genital region? No (0) Do you have pain associated with your prolapse (not pressure or fullness) No PAST SURGICAL HISTORY Procedure Laterality Date COLONOSCOPY FLX DX W/COLLJ SPEC WHEN PFRMD 2001 Colonoscopy PAST SURGICAL HISTORY OF L knee PAST SURGICAL HISTORY OF Parathyroidectomy THYROIDECTOMY TOTAL/COMPLETE R. side TOTAL ABDOMINAL HYSTERECT W/WO RMVL TUBE OVARY 05/03/2008 Hysterectomy, ERLIN./bso, bladder repair PAST MEDICAL HISTORY Diagnosis Date Calculus of kidney Dysmenorrhea Resolved Dyspareunia Resolved Dysthymic disorder Depression (non-psychotic) Excessive or frequent menstruation Heavy periods resolved Postsurgical hypothyroidism Premenstrual tension syndromes PMS resolved Primary hyperparathyroidism (HCC) Symptomatic menopausal or female climacteric states Unspecified urinary incontinence Resolved Family History Problem Relation Age of Onset Diabetes Father Current Outpatient Medications on File Prior to Visit Medication Sig [id number] ORAL Take 3 tablets by mouth daily at bedtime. levothyroxine sodium(SYNTHROID 112 MCG TAB) one tablet 6 days per week multivitamins(DAILY MULTIVITAMIN TAB) Take one(1) tablet daily. No current facility-administered medications on file prior to visit. 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 Skin: Negative for rash or itching. Psychiatric: Negative for depression. Reports normal stress. Neurologic: Negative for new headache or syncope. Endocrine: Negative for sweating, cold intolerance or heat intolerance. Cardiovascular: Negative for recent chest pain, chest pressure or chest discomfort. Hematologic/Lymphatic: Negative for easy bruising or excessive bleeding. Respiratory: Negative for wheezing, shortness of breath or persistent cough. Gastrointestinal: See HPI Musculoskeletal: See HPI I have confirmed and edited as necessary, the PFSH and ROS obtained by others. Gunjan Hector MD Toggle Press Operator offered: Patient accepts, visit chaperoned by jony. OBJECTIVE: Physical Exam: Vitals: LMP 04/07/2008 Constitutional: BMI - There is no height or weight on file to calculate BMI. General Appearance: Well appearing, alert, in no acute distress, well-hydrated, well nourished. Skin: Skin color, texture, turgor normal, no suspicious rashes or lesions Breasts: Deferred Abdomen: Abdomen soft, non-tender Pelvic: External Genitalia: No lesions or other abnormalities Vagina: Ant Wall - Cystocele Stage II ; Post Wall - Rectocele Stage II Cervix / Clare - Stage ll prolapse POP-Q: Prolapse Noted: Yes Aa = -1.0 Ba = +1 C = 0 gh = 3.5 pb = 4.5 tvl = 7.0 Ap = -1.0, +3 standing Bp = +1, +3 standing D = n/a Vaginal epithelium: Atrophic Cervix: Absent Urethra: Normal Bimanual: No tenderness, No masses, s/p hysterectomy Rectovaginal: No tenderness, No masses, Rectocele, possible intussuception Anal Sphincter: Resting Tone: Normal Squeeze Strength: 3+ out of 5 Sphincter Defect: no Levator Ani Contraction: 1+ Levator Ani Tone: normal Levator Ani Tenderness: No Saddle Sensory Exam (S2-4): normal UA results: blood trace intact, positive nitrates, small leuks Bladder scan: PVR 0 mL IMPRESSION: Lianne Briseno is a 69 year old female with (N81.11) Midline cystocele (primary encounter diagnosis) (N81.6) Rectocele (N81.3) Complete uterovaginal prolapse (R35.0) Urinary frequency (K56.1) Intussusception (HCC) (R82.998) Leukocytes in urine (N95.2) Vaginal atrophy. PLAN: 1) Stage III Cystocele, Stage III Uterovaginal Prolapse, Stage III Rectocele: - The patient was informed what type and stage of pelvic organ prolapse they presented with today at clinic. They were given a thorough explanation in clinic that included informational pamphlets with visual aids. - Options were dicussed today including observation, behavioral modifications (i.e., PFPT, pessary insertion) and surgical procedures. - Discussed surgical options including a combined abdominal procedure with Dr. Renee. Patient prefers surgery in May. - Patient was given informational pamphlets to read about these surgical procedures in-depth at home. 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 2) Possible Intussusception - An XR defecography was ordered today to assess possible intussusception. The patient was informed that this test needs to be completed at a facility. 3) Urinary Frequency - Will obtain UDS prior to surgery to see if a bladder sling will need to be placed OR to confirm the type of urinary incontinence the patient has before deciding on a treatment plan. - UDS (bladder testing) was ordered today to better assess the patient's urinary incontinence. The patient was informed to come to testing with their bladder full (but not overly full). The patient was given an informational pamphlet about this procedure to read at home. 4) Leukocytes in urine - UA today was abnormal and showed small leukocytes. Therefore, I am going to send the patient's urine for culture. If the results come back abnormal, I will [facility] the [facility] and [facility]. 5) Vaginal Atrophy - The patient was informed to start vaginal estrogen. Rx Estrace ordered today. - They were informed to apply 1 pea-sized amount to the vagina with fingertip every night for 2 weeks then 3 times weekly. The R/B/A of using vaginal estrogen were discussed in-depth with the patient. They were given an informational handout with visual aids on how to apply the cream. - The patient was informed if the vaginal estrogen costs more than $50, to decline the medication and call the office for an alternate prescription at compounding pharmacy. RTC for UDS A copy of the note with thanks will be sent to Dr. Renee for the referral of this otilia patient. My final recommendations will be communicated back to the requesting physician by way of shared Medical record or letter via US mail. Gunjan Hector MD Medical Decision Making: Problems: Moderate: 2+ stable chronic illnesses Data: Unique test(s) ordered: 3+ Medical Decision Making Level: 4 - Moderate ATTESTATION: By signing my name below, Sherri Bullock, attest that this documentation has been prepared under the direction and in the presence of Dr. Hector. Electronically signed, Jony Rubin December 14, 2024 1:50 PM Provider Attestation: Gunjan Bullock MD, personally performed the services described in this documentation. All medical record entries made by the emaniibdalila were at my direction and in my presence. I have reviewed the chart and discharge instructions (if applicable) and agree that the record reflects my personal performance and is accurate and complete. Dr.Marie Lubna Hector MD December 14, 2024 5:42 PM documented in this encounter [facility] 12-14-2024 Note HNO ID: [id number] Author: GUNJAN HECTOR MD Service: ? Author Type: Physician Type: Progress Notes Filed: 12/14/2024 17:48 Note Text: Female Pelvic Medicine AND Reconstructive Surgery Consult CHIEF COMPLAINT: Lianne Briseno is a 69 year old female who presents for consultation requested by Dr. Renee for an opinion regarding Pelvic Organ Prolapse . 08/17/2024 Last Visit from Referring Provider (Megan Renee): Assessment Assessment and Plan: Lianne Briseno is a 68 year old female with pelvic organ prolapse (cystocele and rectocele), grade II-III prolapsing internal hemorrhoids and likely internal rectal intussusception. Fiber Discussed RBL of internal hemorrhoids if still symptomatic on bowel regimen Referral to Dr. Hector for pelvic organ prolapse to determine if she would be a candidate for perineal repair or if she would require abdominal approach. If the latter, would plan on colonoscopy, defo and possibly manometry prior to surgery. HISTORY OF PRESENT ILLNESS: Denies symptoms of UTI. She felt symptoms a few weeks ago, but they went away. Endorses prolapse symptoms for a few years. Reports muscle pulling away from bone in legs. Denies rectal prolapse. Hx of TVH. Endorses straining with bowel movements. She started taking enzymes to help with food digestion. Hemorrhoid surgery has also helped. 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 Yes, somewhat bothersome (2) Usually experience heaviness or dullness in the pelvic area? No (0) Usually have a bulge or something falling out that you can see or feel in your vaginal area? Yes, somewhat bothersome (2) Ever have to push on the vagina or around the rectum to have or complete a bowel movement? No (0) Usually experience a feeling of incomplete bladder emptying? Yes, somewhat bothersome (2) Ever have to push up on a bulge in the vaginal area with your fingers to start or complete urination? No (0) Feel you need to strain too hard to have a bowel movement? Yes, somewhat bothersome (2) Feel you have not completely emptied your bowels at the end of a bowel movement? Yes, somewhat bothersome (2) Usually lose stool beyond your control if your stool is well formed? No (0) Usually lose stool beyond your control if your stool is loose? Yes, somewhat bothersome (2) Usually lose gas from the rectum beyond your control? Yes, somewhat bothersome (2) Usually have pain when you pass your stool? No (0) Experience a strong sense of urgency and have to nails to the bathroom to have a bowel movement? Yes, somewhat bothersome (2) Does part of your bowel ever pass through the rectum and bulge outside during or after a bowel movement? No (0) Usually experience frequent urination? Yes, moderately bothersome (3), nocturia Usually experience urine leakage associated with a feeling of urgency, that is, a strong sensation of needing to go to the bathroom? No (0) Usually experience urine leakage related to coughing, sneezing or laughing? No (0) Usually experience small amounts of urine leakage (that is, drops)? No (0) Usually experience difficulty emptying your bladder? Yes, moderately bothersome (3) Usually experience pain or discomfort in the lower abdomen or genital region? No (0) Do you have pain associated with your prolapse (not pressure or fullness) No PAST SURGICAL HISTORY Procedure Laterality Date COLONOSCOPY FLX DX W/COLLJ SPEC WHEN PFRMD 2001 Colonoscopy PAST SURGICAL HISTORY OF L knee PAST SURGICAL HISTORY OF Parathyroidectomy THYROIDECTOMY TOTAL/COMPLETE R. side TOTAL ABDOMINAL HYSTERECT W/WO RMVL TUBE OVARY 05/03/2008 Hysterectomy, ERLIN./bso, bladder repair PAST MEDICAL HISTORY Diagnosis Date Calculus of kidney Dysmenorrhea Resolved Dyspareunia Resolved Dysthymic disorder Depression (non-psychotic) Excessive or frequent menstruation Heavy periods resolved Postsurgical hypothyroidism Premenstrual tension syndromes PMS resolved Primary hyperparathyroidism (HCC) Symptomatic menopausal or female climacteric states Unspecified urinary incontinence Resolved Family History Problem Relation Age of Onset Diabetes Father Current Outpatient Medications on File Prior to Visit Medication Sig [id number] ORAL Take 3 tablets by mouth daily at bedtime. levothyroxine sodium(SYNTHROID 112 MCG TAB) one tablet 6 days per week multivitamins(DAILY MULTIVIT (more content not included)... [facility] 10-26-2024 History of Present illness Narrative COLORECTAL SURGERY October 26, 2024 Lianne Briseno Recording using iWant[employer] software for draft documentation of the visit was discussed with the patient/authorized farm loan representative; all questions welcomed and answered. Patient/authorized farm loan representative agreed to proceed Chief Complaint: follow up/ hemorrhoids History of Present Illness: Lianne Briseno is a 68 year old female who presents to the office for a follow up evaluation of hemorrhoids. She was last seen in the office on 08/17/24. She has an appointment with Dr. Hector in December. Found to have rectocele, cystocele, Grade II RA hemorrhoid, internal rectal intussusception in office after examination Prior A/P from 08/17/24: Lianne Briseno is a 68 year old female with pelvic organ prolapse (cystocele and rectocele), grade II-III prolapsing internal hemorrhoids and likely internal rectal intussusception. Fiber Discussed RBL of internal hemorrhoids if still symptomatic on bowel regimen Referral to Dr. Hector for pelvic organ prolapse to determine if she would be a candidate for perineal repair or if she would require abdominal approach. If the latter, would plan on colonoscopy, defo and possibly manometry prior to surgery. Current symptoms: Taking puralax every day, no fecal incontinence. Still has constipation and is training to have a bowel movement. She reports having prolapsed hemorrhoids that she occasionally has to push back in. Some rectal bleeding several times a week. Taking psyllium PAST MEDICAL HISTORY Diagnosis Date Calculus of kidney Dysmenorrhea Resolved Dyspareunia Resolved Dysthymic disorder Depression (non-psychotic) Excessive or frequent menstruation Heavy periods resolved Postsurgical hypothyroidism Premenstrual tension syndromes PMS resolved Primary hyperparathyroidism (HCC) Symptomatic menopausal or female climacteric states Unspecified urinary incontinence Resolved PAST SURGICAL HISTORY Procedure Laterality Date COLONOSCOPY FLX DX W/COLLJ SPEC WHEN PFRMD 2001 Colonoscopy PAST SURGICAL HISTORY OF L knee PAST SURGICAL HISTORY OF Parathyroidectomy THYROIDECTOMY TOTAL/COMPLETE R. side TOTAL ABDOMINAL HYSTERECT W/WO RMVL TUBE OVARY 05/03/2008 Hysterectomy, ERLIN./bso, bladder repair Current Outpatient Medications Medication Sig Dispense Refill [id number] ORAL Take 3 tablets by mouth daily at bedtime. levothyroxine sodium(SYNTHROID 112 MCG TAB) one tablet 6 days per week 0 multivitamins(DAILY MULTIVITAMIN TAB) Take one(1) tablet daily. 0 No current facility-administered medications for this visit. ALLERGIES Allergen Reactions Bee Pollen FAMILY HISTORY Problem Relation Age of Onset Diabetes Father Social History Tobacco Use Smoking status: Former Current packs/day: 0.00 Average packs/day: 0.5 packs/day for 10.0 years (5.0 ttl pk-yrs) Types: Cigarettes Start date: 09/21/1997 Quit date: 09/22/2007 Years since quittin.1 Smokeless tobacco: Never Vaping Use Vaping status: Never Used Substance Use Topics Alcohol use: Yes Comment: very rare Drug use: No Physical Exam: BP 119/75 (BP Site: Right Arm, BP Position: Sitting) Pulse 75 Temp 36.2 C (97.1 F) Ht 157.5 cm (5' 2) Wt 76.2 kg (168 lb) LMP 04/07/2008 BMI 30.73 kg/m General Appearance: Well appearing, alert, in no acute distress, well-hydrated, well nourished. Abdomen: soft, non-tender, non distended The sensitive examination was discussed with the Patient or Patient's Authorized Clinical Microbiologist. As applicable, any other physician, advance practice provider, medical student, or other health professional student that will be observing or involved in the sensitive examination for educational or training purposes was discussed with the Patient or Authorized Clinical Microbiologist. The Patient or Authorized Clinical Microbiologist has agreed to proceed with the sensitive examination. (Sensitive examination includes inspection and/or palpation of the breasts, pelvis, prostate and anorectal regions) Toggle Press Operator present: Yes Osiris Anorectal: External exam reveals normal external hemorrhoids. Digital rectal exam reveals normal/weak tone no mass UNIVERSAL PROTOCOL / SAFETY CHECKLIST Procedure to be Performed: rubber band ligation internal hemorrhoids Sign In: A Moment of CARE was completed. Appropriate PPE (Personal Protective Equipment) worn by all providers involved with the procedure. Special equipment utilized rubber band ligator. Patient/Surrogate Stated/Verified: Patient name, Date of , Relevant allergies, and The intended procedure Time Out: Relevant labs, photos, and/or imaging studies are not applicable. Intended patient and procedure match the source document(s) (e.g. consent, H&P, associated studies [imaging, pathology]) match the intended patient and procedure. Consent obtained and matches the intended procedure. Yes. Correct side/site is not applicable. Medications required for this procedure are verified. are not applicable. Fire risk assessed and is not applicable. Implants: are not applicable. Sign Out: Specimens not collected. All instruments, equipment, possible retained foreign bodies are accounted for. Yes. The post-procedure plan of care has been communicated to the patient or surrogate. Preoperative diagnosis: First to second degree hemorrhoids. Procedure: Anoscopy, rubber band ligation of hemorrhoids. Postoperative diagnosis: Same Indications: This 69 year old year old was found to have internal hemorrhoids that were not suitable for conservative management. Description of procedure: The patient was placed in the chest-knee position. A time out was completed. A digital rectal exam was performed. A lubricated anoscope was inserted into the anal canal. Redundant rectal mucosa was visualized circumferentially. The three hemorrhoidal pedicles were identified and the redundant rectal mucosa just above the largest internal hemorrhoid suctioned. Using the applicator, 2 rubber bands were placed around the tissue and were noted to be in good position. Left lateral and right anterior locations treated. The mucosa was inspected for bleeding prior to withdrawal of the anoscope. The patient tolerated the procedure well with no excessive pain. Assessment Assessment and Plan: Lianne Briseno is a 68 year old female w/ PMHx of ERLIN/BSO w/Urethral Sling w/mesh (Apr 2008) vaginal prolapse who presents to the office for a follow up evaluation of hemorrhoids. She was last seen in the office on 08/17/24. She is here for continued prolapsing hemorrhoids and hemorrhoidal bleeding. She has an appointment with In December to discuss pelvic organ prolapse to determine if she would be a candidate for perineal repair or if she would require abdominal approach for the repair of internal rectal intussusception in office after examination Plan: -S/p hemorrhoid banding RA and LL -Follow up with Dr. Hector in December -RTC after Dr. Hector appointment Medical Decision Making: Data Reviewed: Tests & Documents Reviewed/ordered: Review of prior notes from [facility] I have discussed Lianne Briseno's treatment plan and/or results with the patient. I spent a total of 30 minutes on the date of the service which included preparing to see the patient, [id number] patient care, completing clinical documentation, obtaining and/or reviewing separately obtained history, performing a medically appropriate examination, counseling and educating the patient/family/caregiver, and care coordination (not separately reported). Megan Renee MD Colorectal Surgery documented in this encounter [facility] 10-26-2024 Note HNO ID: [id number] Author: MEGAN RENEE MD Service: ? Author Type: Physician Type: Progress Notes Filed: 10/26/2024 13:51 Note Text: COLORECTAL SURGERY October 26, 2024 Lianne Briseno Recording using iWant[employer] software for draft documentation of the visit was discussed with the patient/authorized farm loan representative; all questions welcomed and answered. Patient/authorized farm loan representative agreed to proceed Chief Complaint: follow up/ hemorrhoids History of Present Illness: Lianne Briseno is a 68 year old female who presents to the office for a follow up evaluation of hemorrhoids. She was last seen in the office on 08/17/24. She has an appointment with Dr. Hector in December. Found to have rectocele, cystocele, Grade II RA hemorrhoid, internal rectal intussusception in office after examination Prior A/P from 08/17/24: Lianne Briseno is a 68 year old female with pelvic organ prolapse (cystocele and rectocele), grade II-III prolapsing internal hemorrhoids and likely internal rectal intussusception. Fiber Discussed RBL of internal hemorrhoids if still symptomatic on bowel regimen Referral to Dr. Hector for pelvic organ prolapse to determine if she would be a candidate for perineal repair or if she would require abdominal approach. If the latter, would plan on colonoscopy, defo and possibly manometry prior to surgery. Current symptoms: Taking puralax every day, no fecal incontinence. Still has constipation and is training to have a bowel movement. She reports having prolapsed hemorrhoids that she occasionally has to push back in. Some rectal bleeding several times a week. Taking psyllium PAST MEDICAL HISTORY Diagnosis Date Calculus of kidney Dysmenorrhea Resolved Dyspareunia Resolved Dysthymic disorder Depression (non-psychotic) Excessive or frequent menstruation Heavy periods resolved Postsurgical hypothyroidism Premenstrual tension syndromes PMS resolved Primary hyperparathyroidism (HCC) Symptomatic menopausal or female climacteric states Unspecified urinary incontinence Resolved PAST SURGICAL HISTORY Procedure Laterality Date COLONOSCOPY FLX DX W/COLLJ SPEC WHEN PFRMD 2001 Colonoscopy PAST SURGICAL HISTORY OF L knee PAST SURGICAL HISTORY OF Parathyroidectomy THYROIDECTOMY TOTAL/COMPLETE R. side TOTAL ABDOMINAL HYSTERECT W/WO RMVL TUBE OVARY 05/03/2008 Hysterectomy, ERLIN./bso, bladder repair Current Outpatient Medications Medication Sig Dispense Refill [id number] ORAL Take 3 tablets by mouth daily at bedtime. levothyroxine sodium(SYNTHROID 112 MCG TAB) one tablet 6 days per week 0 multivitamins(DAILY MULTIVITAMIN TAB) Take one(1) tablet daily. 0 No current facility-administered medications for this visit. ALLERGIES Allergen Reactions Bee Pollen FAMILY HISTORY Problem Relation Age of Onset Diabetes Father Social History Tobacco Use Smoking status: Former Current packs/day: 0.00 Average packs/day: 0.5 packs/day for 10.0 years (5.0 ttl pk-yrs) Types: Cigarettes Start date: 09/21/1997 Quit date: 09/22/2007 Years since quittin.1 Smokeless tobacco: Never Vaping Use Vaping status: Never Used Substance Use Topics Alcohol use: Yes Comment: very rare Drug use: No Physical Exam: BP 119/75 (BP Site: Right Arm, BP Position: Sitting) Pulse 75 Temp 36.2 ?C (97.1 ?F) Ht 157.5 cm (5' 2) Wt 76.2 kg (168 lb) LMP 04/07/2008 BMI 30.73 kg/m? General Appearance: Well appearing, alert, in no acute distress, well-hydrated, well nourished. Abdomen: soft, non-tender, non distended The sensitive examination was discussed with the Patient or Patient's Authorized Clinical Microbiologist. As applicable, any other physician, advance practice provider, medical student, or other health professional student that will be observing or involved in the sensitive examination for educational or training purposes was discussed with the Patient or Authorized Clinical Microbiologist. The Patient or Authorized Clinical Microbiologist has agreed to proceed with the sensitive examination. (Sensitive examination includes inspection and/or palpation of the breasts, pelvis, prostate and anorectal regions) Toggle Press Operator present: Yes Osiris Anorectal: External exam reveals normal external hemorrhoids. Digital rectal exam reveals normal/weak tone no mass UNIVERSAL PROTOCOL / SAFETY CHECKLIST Procedure to be Performed: rubber band ligation internal hemorrhoids Sign In: A Moment of CARE was completed. Appropriate PPE (Personal Protective Equipment) worn by all providers involved with the procedure. Special equipment utilized rubber band ligator. Patient/Surrogate Stated/Verified: Patient name, Date of , Relevant allergies, and The intended procedure Time Out: Relevant labs, photos, and/or imaging studies are not applicable. Intended patient and procedure match the source document(s) (e.g. consent, HANDP, a (more content not included)... [facility] 09-01-2024 Radiology Diagnostic study note [facility] Imaging Services [address] [place] [id number] Wrist min 3 Views MR#: [id number] Acct: [id number] Name: LIANNE BRISENO ROBIN Rep #: [id number] : 1955 F 68 From: And bethany Gusman DO PCP: KYLER Ferguson, SECTION GANG-C Status: REG CLI Study:Wrist min 3 Views Date of Exam: Exam# [id number] Ordering Dr: Stephania Rodriguez SECTION GANGGarima PROCEDURE: Right wrist radiographs, three views REASON FOR EXAM: Pain TECHNIQUE: Three views of the right wrist were obtained. COMPARISON: None. FINDINGS: Three views of the right wrist were obtained. Bones are osteopenic. The included distal radius and ulna are intact. Mild radiocarpal joint narrowing. No displaced carpal or metacarpal fracture. RAD/Wrist min 3 Views IMPRESSION: Osteopenia. No acute bony abnormality of the right wrist. Mild radiocarpal joint narrowing. If there is persistent pain or clinical concern, MRI evaluation may be considered. [facility] SECTION GANG-C Stephania Rodriguez ~ Wire Splicer: Signed [facility] 09-01-2024 Radiology Diagnostic study note [facility] Imaging Services [address] [place], [place] [address] Lumbar Spine 2 or 3 Views MR#: [id number] Acct: [id number] Name: LIANNE BRISENO ROBIN Rep #: [id number] : 1955 F 68 From: Yaa Gusman DO PCP: KYLER Ferguson, SECTION GANG-C Status: REG CLI Study:Lumbar Spine 2 or 3 Views Date of Exam: 09/01/24 Exam# [id number] Ordering Dr: Stephania Rodriguez SECTION GANGGarima PROCEDURE: Lumbar spine radiographs, two views REASON FOR EXAM: Low back pain TECHNIQUE: AP and lateral views of the lumbar spine were obtained. COMPARISON: None. FINDINGS: Two views of the lumbar spine were obtained. Bones are osteopenic. Included portions of the pelvis and SI joints are intact. Mild degenerative changes in the hip joints. There is mild rightward curvature of the mid lumbar spine on the AP view. No acute fracture in the lumbar spine. Grade 1 retrolisthesis of L2 relative to L3. Moderate multilevel degenerative disc and facet disease in the lumbar spine, to a severe degree at the L2-3 level. Minimal chronic appearing superior endplate depression of L3. RAD/Lumbar Spine 2 or 3 Views IMPRESSION: Osteopenia. No definite acute bony abnormality of the lumbar spine. Minimal chronic appearing superior endplate depression of L3. Moderate multilevel degenerative disc and facet disease, to a severe degree at the L2-3 level. If there is persistent pain or clinical concern, short-term follow-up MRI evaluation may be considered. Reading Location: [facility] CC: [facility] SECTION GANG-C Stephania Rodriguez ~ Wire Splicer: Signed [facility] 09-01-2024 Radiology Diagnostic study note [facility] Imaging Services [address] [place] [id number] Thoracic Spine 2 Views MR#: [id number] Acct: [id number] Name: LIANNE BRISENO Rep #: [id number] : 1955 F 68 From: Yaa Gusman DO PCP: KYLER Ferguson, SECTION GANG-C Status: REG CLI Study:Thoracic Spine 2 Views Date of Exam: 09/01/24 Exam# [id number] Ordering Dr: Stephania Rodriguez SECTION GANG-Tricia PROCEDURE: Thoracic spine radiographs, two views REASON FOR EXAM: Back pain TECHNIQUE: AP and lateral views of the thoracic spine were obtained. COMPARISON: None. FINDINGS: Two views of the thoracic spine were obtained. Bones are osteopenic. The lungsare grossly clear, although evaluation is limited on this study. Mild leftward curvature of the lower thoracic/upper lumbar spine on the AP view. Mild elevation right hemidiaphragm. No acute thoracic vertebral body fracture. Moderate multilevel degenerative disc disease in the thoracic spine. RAD/Thoracic Spine 2 Views IMPRESSION: Osteopenia. No acute bony abnormality of the thoracic spine. Moderate multilevel degenerative disc and facet disease in the thoracic spine. If there is persistent pain or clinical concern, short-term follow-up thoracic spine MRI may be considered. Reading Location: [facility] CC: [facility] SECTION GANGGarima Rodriguez ~ Wire Splicer: Signed [facility] 08-17-2024 History of Present illness Narrative COLORECTAL SURGERY August 17, 2024 Lianne Briseno This consult was requested by patient and my final recommendations will be communicated to the requesting health care provider by way of the shared medical record for internal providers or letter via the [employer] for external providers. Chief Complaint: hemorrhoids and rectal prolapse History of Present Illness: Lianne Briseno is a 68 year old female who presents to the office for evaluation of hemorrhoids and rectal prolapse. Patient reports uterovaginal prolapse for the past 5 years, feeling a bulging sensation in the vagina at all times, size decreases after having bowel movements and increases when she feels constipated. Reports a 3 year history of hemorrhoids. Rectal prolapse: None subjective Hematochezia? No Proctalgia? No Vaginal prolapse: Yes Fecal incontinence: No Frequency: No Severity: No Urinary incontinence: None Primary uro/bpm analyst: None Constipation: Yes, Purelax few times weekly If yes, prior meds: none Primary GI: None Stool consistency: Fluctuates, soft most of the time Time in bathroom: 10 min PMH: Primary Hyperparathyroidism, Post-operative Hypothyroidism PSH: ERLIN/BSO w/Urethral Sling w/mesh (Apr 2008), b/l Breast Reduction Obstetric hx: - 1 vaginal delivery Hx obstetric trauma: None Hx anorectal trauma: None Current smoker: None Prior pelvic floor PT: None Prior testing: Manometry: None Defecography: None Colonoscopy- in 2019 (patient reports not abnormal) No family h/o CRC or IBD PAST MEDICAL HISTORY Diagnosis Date Calculus of kidney Dysmenorrhea Resolved Dyspareunia Resolved Dysthymic disorder Depression (non-psychotic) Excessive or frequent menstruation Heavy periods resolved Postsurgical hypothyroidism Premenstrual tension syndromes PMS resolved Primary hyperparathyroidism (HCC) Symptomatic menopausal or female climacteric states Unspecified urinary incontinence Resolved PAST SURGICAL HISTORY Procedure Laterality Date COLONOSCOPY FLX DX W/COLLJ SPEC WHEN PFRMD 2001 Colonoscopy PAST SURGICAL HISTORY OF L knee PAST SURGICAL HISTORY OF Parathyroidectomy THYROIDECTOMY TOTAL/COMPLETE R. side TOTAL ABDOMINAL HYSTERECT W/WO RMVL TUBE OVARY 05/03/2008 Hysterectomy, ERLIN./bso, bladder repair Current Outpatient Medications Medication Sig Dispense Refill [id number] ORAL Take 3 tablets by mouth daily at bedtime. levothyroxine sodium(SYNTHROID 112 MCG TAB) one tablet 6 days per week 0 multivitamins(DAILY MULTIVITAMIN TAB) Take one(1) tablet daily. 0 No current facility-administered medications for this visit. ALLERGIES Allergen Reactions Bee Pollen FAMILY HISTORY Problem Relation Age of Onset Diabetes Father Social History Tobacco Use Smoking status: Former Current packs/day: 0.00 Average packs/day: 0.5 packs/day for 10.0 years (5.0 ttl pk-yrs) Types: Cigarettes Start date: 09/21/1997 Quit date: 09/22/2007 Years since quittin.9 Smokeless tobacco: Never Vaping Use Vaping status: Never Used Substance Use Topics Alcohol use: Yes Comment: very rare Drug use: No Physical Exam: BP 123/82 (BP Position: Sitting, BP Cuff Size: Regular Adult) Pulse 71 Temp 36.4 C (97.5 F) LMP 04/07/2008 SpO2 97% General Appearance: Well appearing, alert, in no acute distress, well-hydrated, well nourished. Abdomen: soft ND NT The sensitive examination was discussed with the Patient or Patient's Authorized Clinical Microbiologist. As applicable, any other physician, advance practice provider, medical student, or other health professional student that will be observing or involved in the sensitive examination for educational or training purposes was discussed with the Patient or Authorized Clinical Microbiologist. The Patient or Authorized Clinical Microbiologist has agreed to proceed with the sensitive examination. (Sensitive examination includes inspection and/or palpation of the breasts, pelvis, prostate and anorectal regions) Anorectal: External exam reveals mildly enlarged external hemorrhoids, grade II prolapsing RA internal hemorrhoids with Valsalva. No mucosal or full thickness rectal prolapse with valsalva. Vaginal exam with mild/moderate cystocele, good apical support and moderate rectocele with Valsalva. Digital rectal exam reveals normal/weak tone, increase w/ squeeze and decrease with Valsalva. No mass. 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 After digital exam with a lubricated finger, the scope was easily inserted. Moderately enlarged right posterior, right anterior, and left lateral internal hemorrhoids were noted. Otherwise prolapsing mucosa mucosa was noted. Anoscopy completed. Assessment Assessment and Plan: Lianne Briseno is a 68 year old female with pelvic organ prolapse (cystocele and rectocele), grade II-III prolapsing internal hemorrhoids and likely internal rectal intussusception. Fiber Discussed RBL of internal hemorrhoids if still symptomatic on bowel regimen Referral to Dr. Hector for pelvic organ prolapse to determine if she would be a candidate for perineal repair or if she would require abdominal approach. If the latter, would plan on colonoscopy, defo and possibly manometry prior to surgery. Medical Decision Making: Data Reviewed: Tests & Documents Reviewed/ordered: None I have discussed Lianne Briseno's treatment plan and/or results with the patient, will discuss with Dr. Hector. I spent a total of 60 minutes on the date of the service which included preparing to see the patient, [id number] patient care, completing clinical documentation, obtaining and/or reviewing separately obtained history, performing a medically appropriate examination, counseling and educating the patient/family/caregiver, communicating with other HCPs (not separately reported), and care coordination (not separately reported). Megan Renee MD Colorectal Surgery documented in this encounter [facility] 08-17-2024 Note HNO ID: [id number] Author: MEGAN RENEE MD Service: ? Author Type: Physician Type: Progress Notes Filed: 08/17/2024 14:33 Note Text: COLORECTAL SURGERY August 17, 2024 Lianne Briseno This consult was requested by patient and my final recommendations will be communicated to the requesting health care provider by way of the shared medical record for internal providers or letter via the [employer] for external providers. Chief Complaint: hemorrhoids and rectal prolapse History of Present Illness: Lianne Briseno is a 68 year old female who presents to the office for evaluation of hemorrhoids and rectal prolapse. Patient reports uterovaginal prolapse for the past 5 years, feeling a bulging sensation in the vagina at all times, size decreases after having bowel movements and increases when she feels constipated. Reports a 3 year history of hemorrhoids. Rectal prolapse: None subjective Hematochezia? No Proctalgia? No Vaginal prolapse: Yes Fecal incontinence: No Frequency: No Severity: No Urinary incontinence: None Primary uro/bpm analyst: None Constipation: Yes, Purelax few times weekly If yes, prior meds: none Primary GI: None Stool consistency: Fluctuates, soft most of the time Time in bathroom: 10 min PMH: Primary Hyperparathyroidism, Post-operative Hypothyroidism PSH: ERLIN/BSO w/Urethral Sling w/mesh (Apr 2008), b/l Breast Reduction Obstetric hx: - 1 vaginal delivery Hx obstetric trauma: None Hx anorectal trauma: None Current smoker: None Prior pelvic floor PT: None Prior testing: Manometry: None Defecography: None Colonoscopy- in 2019 (patient reports not abnormal) No family h/o CRC or IBD PAST MEDICAL HISTORY Diagnosis Date Calculus of kidney Dysmenorrhea Resolved Dyspareunia Resolved Dysthymic disorder Depression (non-psychotic) Excessive or frequent menstruation Heavy periods resolved Postsurgical hypothyroidism Premenstrual tension syndromes PMS resolved Primary hyperparathyroidism (HCC) Symptomatic menopausal or female climacteric states Unspecified urinary incontinence Resolved PAST SURGICAL HISTORY Procedure Laterality Date COLONOSCOPY FLX DX W/COLLJ SPEC WHEN PFRMD 2001 Colonoscopy PAST SURGICAL HISTORY OF L knee PAST SURGICAL HISTORY OF Parathyroidectomy THYROIDECTOMY TOTAL/COMPLETE R. side TOTAL ABDOMINAL HYSTERECT W/WO RMVL TUBE OVARY 05/03/2008 Hysterectomy, ERLIN./bso, bladder repair Current Outpatient Medications Medication Sig Dispense Refill [id number] ORAL Take 3 tablets by mouth daily at bedtime. levothyroxine sodium(SYNTHROID 112 MCG TAB) one tablet 6 days per week 0 multivitamins(DAILY MULTIVITAMIN TAB) Take one(1) tablet daily. 0 No current facility-administered medications for this visit. ALLERGIES Allergen Reactions Bee Pollen FAMILY HISTORY Problem Relation Age of Onset Diabetes Father Social History Tobacco Use Smoking status: Former Current packs/day: 0.00 Average packs/day: 0.5 packs/day for 10.0 years (5.0 ttl pk-yrs) Types: Cigarettes Start date: 09/21/1997 Quit date: 09/22/2007 Years since quittin.9 Smokeless tobacco: Never Vaping Use Vaping status: Never Used Substance Use Topics Alcohol use: Yes Comment: very rare Drug use: No Physical Exam: BP 123/82 (BP Position: Sitting, BP Cuff Size: Regular Adult) Pulse 71 Temp 36.4 ?C (97.5 ?F) LMP 04/07/2008 SpO2 97% General Appearance: Well appearing, alert, in no acute distress, well-hydrated, well nourished. Abdomen: soft ND NT The sensitive examination was discussed with the Patient or Patient's Authorized Clinical Microbiologist. As applicable, any other physician, advance practice provider, medical student, or other health professional student that will be observing or involved in the sensitive examination for educational or training purposes was discussed with the Patient or Authorized Clinical Microbiologist. The Patient or Authorized Clinical Microbiologist has agreed to proceed with the sensitive examination. (Sensitive examination includes inspection and/or palpation of the breasts, pelvis, prostate and anorectal regions) Anorectal: External exam reveals mildly enlarged external hemorrhoids, grade II prolapsing RA internal hemorrhoids with Valsalva. No mucosal or full thickness rectal prolapse with valsalva. Vaginal exam with mild/moderate cystocele, good apical support and moderate rectocele with Valsalva. Digital rectal exam reveals normal/weak tone, increase w/ squeeze and decrease with Valsalva. No mass. 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 After digital exam with a lubricated finger, the scope was easily inserted. Moderately enlarged right posterior, right anterior, and left lateral internal hemorrhoids were noted. Otherwise prolapsing mucosa mucosa (more content not included)... [facility] 03-11-2024 Telephone encounter Note Left patient message to call back & reschedule surgery [facility] 03-11-2024 Miscellaneous Notes Left patient message to call back & reschedule surgery Patient called into the office today and is looking to reschedule her surgery that is scheduled for 03/29/2024. Patient can be reached at [phone]. Thanks Ru Mejias documented in this encounter [facility] 03-11-2024 Telephone encounter Note Patient called into the office today and is looking to reschedule her surgery that is scheduled for 03/29/2024. Patient can be reached at [phone]. Thanks Ru Mejias [facility] 02-24-2024 History and physical note Images from the original note were not included. General Surgery New Patient REASON FOR VISIT Lianne Briseno is a 68 year old female who is scheduled for a consult at the request of Self / Jasmyne Leach MD for hemorrhoids vs rectal prolapse. My final recommendations will be communicated back to the requesting physician by the way of the shared medical record, fax, or via US Mail History of Present Illness: Lianne Briseno is a 68 year old female with contributing past medical and surgical history significant for primary hyperparathyroidism, post-surgical hypothyroidism, hx of incomplete uterovaginal prolapse and midline cystocele s/p ERLIN/BSO with CASSI from sigmoid to uterus and urethral sling w/ mesh (unable to find complete op report in EMR, 2007), s/p bilateral breast reduction. The patient presents with reported hemorrhoids vs rectal prolapse. She states that when she has a bowel movement she feels like something starts protruding from her anus and her vagina. The mass from her anus reduces spontaneously. The likely rectocele she occasionally has to manually reduce. She endorses constipation. PAST MEDICAL HISTORY No date: Calculus of kidney No date: Dysmenorrhea Comment: Resolved No date: Dyspareunia Comment: Resolved No date: Dysthymic disorder Comment: Depression (non-psychotic) No date: Excessive or frequent menstruation Comment: Heavy periods resolved No date: Postsurgical hypothyroidism No date: Premenstrual tension syndromes Comment: PMS resolved No date: Primary hyperparathyroidism (HCC) No date: Symptomatic menopausal or female climacteric states No date: Unspecified urinary incontinence Comment: Resolved PAST SURGICAL HISTORY 2001: COLONOSCOPY FLX DX W/COLLJ SPEC WHEN PFRMD Comment: Colonoscopy No date: PAST SURGICAL HISTORY OF Comment: L knee No date: PAST SURGICAL HISTORY OF Comment: Parathyroidectomy No date: THYROIDECTOMY TOTAL/COMPLETE Comment: R. side 05/03/2008: TOTAL ABDOMINAL HYSTERECT W/WO RMVL TUBE OVARY Comment: Hysterectomy, ERLIN./bso, bladder repair FAMILY HISTORY Problem Relation Age of Onset Diabetes Father Social History Tobacco Use Smoking status: Former Current packs/day: 0.00 Average packs/day: 0.5 packs/day for 10.0 years (5.0 ttl pk-yrs) Types: Cigarettes Start date: 09/21/1997 Quit date: 09/22/2007 Years since quittin.4 Smokeless tobacco: Never Vaping Use Vaping status: Never Used Substance Use Topics Alcohol use: Yes Comment: very rare Drug use: No The patient has the following: Problem List Noted Noted By Resolved Resolved By Symptomatic menopausal or female climacteric states 06/15/2008 Gabriel Pemberton A No Postmenopausal atrophic vaginitis 06/15/2008 Gabriel Pemberton A No Transient disorder of initiating or maintaining sleep 06/15/2008 Gabriel Pemberton No Calculus of kidney 06/12/2005 Rodolfo Rick MD No Postsurgical hypothyroidism Judy Sam, VP [employer] No Primary hyperparathyroidism (HCC) Judy Sam [employer] No Leiomyoma of uterus, unspecified 04/28/2008 Gabriel Pemberton A 05/18/2008 Gabriel Pemberton A Excessive or frequent menstruation 04/28/2008 Gabriel Pemberton A 05/18/2008 Gabriel Pemberton A Irregular menstrual cycle 04/28/2008 Gabriel Pemberton A 05/18/2008 Gabriel Pemberton A Dysmenorrhea 04/28/2008 Gabriel Pemberton A 05/18/2008 Gabriel Pemberton A Dyspareunia 04/28/2008 Gabriel Pemberton A 10/17/2009 Gabriel Pemberton A Female stress incontinence 04/28/2008 Gabriel Pemberton A 05/18/2008 Gabriel Pemberton A Urge incontinence 04/28/2008 Gabriel Pemberton A 05/18/2008 Niecy Gabriel Marissa Urgency of urination 04/28/2008 Gabriel Pemberton 05/18/2008 Gabriel Pemberton MEDICATIONS Current Outpatient Medications Medication Sig Dispense Refill [id number] ORAL Take 3 tablets by mouth daily at bedtime. levothyroxine sodium(SYNTHROID 112 MCG TAB) one tablet 6 days per week 0 multivitamins(DAILY MULTIVITAMIN TAB) Take one(1) tablet daily. 0 No current facility-administered medications for this visit. CURRENT ALLERGIES ALLERGIES Allergen Reactions Bee Pollen REVIEW OF SYSTEMS GENERAL: No weight loss, malaise or fevers. RESPIRATORY: Negative for cough, wheezing, or shortness of breath. CARDIOVASCULAR: Negative for chest pain, leg swelling, or palpitations. GI: Endorses constipation. No abdominal pain, nausea, vomiting, diarrhea : No history of dysuria, frequency or incontinence. 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 Reports mass that protrudes from her vagina when she has a bowel movement PHYSICAL EXAMINATION BP 108/71 Pulse 69 Ht 5' 2.008 (1.58m) Wt 168 lb (76.2kg) LMP 04/07/2008 BMI 30.72 kg/(m^2). General Appearance: Well appearing, alert, in no acute distress, well-hydrated, well nourished. Heart: RR Abdomen: Normal abdominal exam Anorectal: No external hemorrhoids or skin tag. The anal sphincter has normal tone. Palpable internal hemorrhoids. Diagnostic tests reviewed for today's visit: Office notes from Assessment ASSESSMENT Internal hemorrhoid, bleeding (primary encounter diagnosis) Female genital prolapse, unspecified type RECOMMENDATION -I discussed with patient the nature of her condition and the available treatments. Advised her to increase the fiber intake (eg Benefiber 1 tablespoon daily) and possibly also use mineral oil (1 tablespoon daily) to keep her stool soft enough to avoid injury to her hemorrhoids. -Offered the patient rectal exam under anesthesia w/ hemorrhoid artery ligation and rectal anal repair -Risks, benefits, complications and alternatives to the procedure were explained in detail to the patient including bleeding, pain, and recurrence of internal hemorrhoids. She would like to proceed with scheduling the surgery -Referral sent to UROGYN for evaluation of prolapse Signature: Demond Barnard Date: 02/23/2024 Time: 11:07 AM CC: Jasmyne Leach MD CC: Self [facility] 02-24-2024 History and physical note Images from the original note were not included. General Surgery New Patient REASON FOR VISIT Lianne Briseno is a 68 year old female who is scheduled for a consult at the request of Self / Jasmyne Leach MD for hemorrhoids vs rectal prolapse. My final recommendations will be communicated back to the requesting physician by the way of the shared medical record, fax, or via US Mail History of Present Illness: Lianne Briseno is a 68 year old female with contributing past medical and surgical history significant for primary hyperparathyroidism, post-surgical hypothyroidism, hx of incomplete uterovaginal prolapse and midline cystocele s/p ERLIN/BSO with CASSI from sigmoid to uterus and urethral sling w/ mesh (unable to find complete op report in EMR, 2007), s/p bilateral breast reduction. The patient presents with reported hemorrhoids vs rectal prolapse. She states that when she has a bowel movement she feels like something starts protruding from her anus and her vagina. The mass from her anus reduces spontaneously. The likely rectocele she occasionally has to manually reduce. She endorses constipation. PAST MEDICAL HISTORY No date: Calculus of kidney No date: Dysmenorrhea Comment: Resolved No date: Dyspareunia Comment: Resolved No date: Dysthymic disorder Comment: Depression (non-psychotic) No date: Excessive or frequent menstruation Comment: Heavy periods resolved No date: Postsurgical hypothyroidism No date: Premenstrual tension syndromes Comment: PMS resolved No date: Primary hyperparathyroidism (HCC) No date: Symptomatic menopausal or female climacteric states No date: Unspecified urinary incontinence Comment: Resolved PAST SURGICAL HISTORY 2001: COLONOSCOPY FLX DX W/COLLJ SPEC WHEN PFRMD Comment: Colonoscopy No date: PAST SURGICAL HISTORY OF Comment: L knee No date: PAST SURGICAL HISTORY OF Comment: Parathyroidectomy No date: THYROIDECTOMY TOTAL/COMPLETE Comment: R. side 05/03/2008: TOTAL ABDOMINAL HYSTERECT W/WO RMVL TUBE OVARY Comment: Hysterectomy, ERLIN./bso, bladder repair FAMILY HISTORY Problem Relation Age of Onset Diabetes Father Social History Tobacco Use Smoking status: Former Current packs/day: 0.00 Average packs/day: 0.5 packs/day for 10.0 years (5.0 ttl pk-yrs) Types: Cigarettes Start date: 09/21/1997 Quit date: 09/22/2007 Years since quittin.4 Smokeless tobacco: Never Vaping Use Vaping status: Never Used Substance Use Topics Alcohol use: Yes Comment: very rare Drug use: No The patient has the following: Problem List Noted Noted By Resolved Resolved By Symptomatic menopausal or female climacteric states 06/15/2008 Gabriel Pemberton A No Postmenopausal atrophic vaginitis 06/15/2008 Gabriel Pemberton A No Transient disorder of initiating or maintaining sleep 06/15/2008 Gabriel Pemberton A No Calculus of kidney 06/12/2005 Rodolfo Rick MD No Postsurgical hypothyroidism Judy Sam LPN No Primary hyperparathyroidism (HCC) Judy Sam LPN No Leiomyoma of uterus, unspecified 04/28/2008 Gabriel Pemberton A 05/18/2008 Gabriel Pemberton A Excessive or frequent menstruation 04/28/2008 Niecy, Gabriel A 05/18/2008 BareGabriel A Irregular menstrual cycle 04/28/2008 Niecy, Gabriel A 05/18/2008 Gabriel Pemberton A Dysmenorrhea 04/28/2008 Niecy, Gabriel A 05/18/2008 BareGabriel A Dyspareunia 04/28/2008 Niecy, Gabriel A 10/17/2009 Gabriel Pemberton A Female stress incontinence 04/28/2008 Niecy, Gabriel A 05/18/2008 Gabriel Pemberton A Urge incontinence 04/28/2008 Niecy, Gabriel A 05/18/2008 Gabriel Pemberton A Urgency of urination 04/28/2008 Niecy, Gabriel A 05/18/2008 Gabriel Pemberton A MEDICATIONS Current Outpatient Medications Medication Sig Dispense Refill [id number] ORAL Take 3 tablets by mouth daily at bedtime. levothyroxine sodium(SYNTHROID 112 MCG TAB) one tablet 6 days per week 0 multivitamins(DAILY MULTIVITAMIN TAB) Take one(1) tablet daily. 0 No current facility-administered medications for this visit. CURRENT ALLERGIES ALLERGIES Allergen Reactions Bee Pollen REVIEW OF SYSTEMS GENERAL: No weight loss, malaise or fevers. RESPIRATORY: Negative for cough, wheezing, or shortness of breath. CARDIOVASCULAR: Negative for chest pain, leg swelling, or palpitations. GI: Endorses constipation. No abdominal pain, nausea, vomiting, diarrhea : No history of dysuria, frequency or incontinence. 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 Reports mass that protrudes from her vagina when she has a bowel movement PHYSICAL EXAMINATION BP 108/71 Pulse 69 Ht 5' 2.008 (1.58m) Wt 168 lb (76.2kg) LMP 04/07/2008 BMI 30.72 kg/(m^2). General Appearance: Well appearing, alert, in no acute distress, well-hydrated, well nourished. Heart: RR Abdomen: Normal abdominal exam Anorectal: No external hemorrhoids or skin tag. The anal sphincter has normal tone. Palpable internal hemorrhoids. Diagnostic tests reviewed for today's visit: Office notes from Assessment ASSESSMENT Internal hemorrhoid, bleeding (primary encounter diagnosis) Female genital prolapse, unspecified type RECOMMENDATION -I discussed with patient the nature of her condition and the available treatments. Advised her to increase the fiber intake (eg Benefiber 1 tablespoon daily) and possibly also use mineral oil (1 tablespoon daily) to keep her stool soft enough to avoid injury to her hemorrhoids. -Offered the patient rectal exam under anesthesia w/ hemorrhoid artery ligation and rectal anal repair -Risks, benefits, complications and alternatives to the procedure were explained in detail to the patient including bleeding, pain, and recurrence of internal hemorrhoids. She would like to proceed with scheduling the surgery -Referral sent to UROGYN for evaluation of prolapse Signature: Demond Barnard Date: 02/23/2024 Time: 11:07 AM CC: Jasmyne Leach MD CC: Self documented in this encounter [facility] 10-15-2022 Discharge summary Note Date/Time October 15, 2022 11:50am [facility] [address] [place] [address]. [address] [place] [address] / REHABILITATION SERVICES DISCHARGE SUMMARY MR#: [id number] Acct: [id number] Name: LIANNE BRISENO Rep #: [id number] : 1955 66 From: Gerson Herrera DPT, OCS, CSCS Referring Dr.: Dr. Balbir Leach MD Statu s: REG RCR Insurance: MEDICARE PART A B [employer] SR SUPPLEMENT INS It has been my pleasure to treat LIANNE BRISENO referred by Dr. Balbir Leach MD, with the diagnosis of R knee OA for a total of 7 visit(s). Discharge Date: 10/15/22 Please see the following information for a summary of their discharge status. Subjective: had blood clots last week adn could not make it in. Was worse in sciatic and L leg without therapy. went to doctor last week and got medicine meloxicam which has really helped. Worried it will go back when she gets off meds. Prior to last week was getting better. Walking better and knee not as painful to 10 . Was 65% better overall but sat in hospital all week. She is walking more at home now that pain is better. Noncompliant with HEP. They are also monitorring heart since ellen was in hospital. Has not been wearing brace. It is not comfortable. R knee Pain Intensity (Out of 10): 4 % Improvement: 65 Objective/Function: 0-112 AROM R knee and 0-100 L knee, slightly improved from day one. Walking with R varus at knee and antalgia slightly today, better than day one but on meloxicam now. steps have poor forward weight shift and painful with R up as well as weak and painful descending. overall better and was improving before lina week last week but now is on meloxicam. She does not wish at this time to cotninue and resume her therapy as she wants her ember carlson first and get off meloxicam and then will consider coming back to therapy to complete with strengthening or possible water therapy Goal 1:: 0-115 AROM B knees without pain easily Goal Progress: Progressing Goal 2:: I home stretches , core and hip/knee strength program to manage OA Goal Progress: Progressing Goal 3:: Pt feel 50% better in knee pain Goal Progress: 65% Goal 4:: able to [facility] or increased pain Goal Progress: had started Goal 5:: LES score 55 Goal Progress: Progressing Plan: d/c at patient request, should be sent back if and when time is right for strengtheing of LE to HEp or water therapy if symptoms worsen. If there are questions or concerns regarding this patient's physical therapy, please feel free to call me at [phone]. Thank you for the referral of thispatient. Sincerely, Gerson Herrera, DPT, OCS, CSCS Balance/Gait/Functional tests - Balance/Special Test Scores Lower Extremity Functional Score: 30 <Electronically signed by Gerson CALHOUNT, OCS, CSCS> 10/15/22 1150 CC: Dr. Balbir Leach MD ~ EBG Signed [facility] Work Phone: Evaluvcmwe noteNo assessment information available [facility] Work Phone: Evaluation note* Diagnosis Internal hemorrhoid, bleeding- Primary Internal hemorrhoids with other complication Female genital prolapse, unspecified type Internal hemorrhoid, bleeding Internal hemorrhoids with other complication [facility] Diagnosis Grade III hemorrhoids- Primary Unspecified hemorrhoids with other complication Hemorrhoids, internal, with bleeding Internal hemorrhoids with other complication Midline cystocele Cystocele, midline Rectocele [facility] Diagnosis Hemorrhoids, internal, with bleeding- Primary Internal hemorrhoids with other complication Hemorrhoids, unspecified hemorrhoid type Rectocele Midline cystocele Cystocele, midline [facility] Diagnosis Midline cystocele- Primary Cystocele, midline Rectocele Complete uterovaginal prolapse Uterovaginal prolapse, complete Urinary frequency Intussusception (HCC) Intussusception Leukocytes in urine Other cells and casts in urine Vaginal atrophy Postmenopausal atrophic vaginitis Vaginal vault prolapse, posthysterectomy Prolapse of vaginal vault after hysterectomy Stress incontinence in female Female stress incontinence Intussusception of rectum (HCC) Intussusception [facility]* Diagnosis Rectocele- Primary Midline cystocele Cystocele, midline Grade III hemorrhoids Unspecified hemorrhoids with other complication [facility]ative)No reason for referral information availableWLakeHealth [facility] Work Phone: Advance Directives No Advanced Directives Records Found Advance Directive Response Recorded Date/ Time Living Will No March 25, 2020 6:22pm Power of Photographer Finish No March 6:22pm Advance Directive Response Recorded Date/ Time Living Will No March 25, 2020 5:22pm Power of Photographer Finish No March 5:22pm Advance Directive Response Recorded Date/ Time Living Will No April 27 6:02am Power of Photographer Finish No April 27, 2023 6:02am Advance Directive Response Recorded Date/ Time Living Will No April 27 7:02am Power of Photographer Finish No April 27, 2023 7:02am Documents on File Type Date Recorded Patient 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 Microbiologist Expl anation Advance Directive(s) 01/08/2019 10:56 AM Documents on File Type Date Recorded Patient Clinical Microbiologist Expl anation Advance Directive(s) 01/08/2019 10:56 AM Chief Complaint and Reason for Visit Chief Complaint SCREENING RIGHT KNEE Chief Complaint OA R KNEE Chief Complaint OA R KNEE EORDER FOR LABS - CHEST XRAY SOB Chief Complaint OA R KNEE EORDER FOR LABS - CHEST XRAY SOB Shortness of breath Chief Complaint OA R KNEE EORDER FOR LABS - CHEST XRAY SOB Shortness of breath DYSPHAGIA Chief Complaint back pain SCREENING POST BRENDA Chief Complaint SCREENING POST BRENDA bilateral leg pain. hx ddd. pain/KNEE AND BACK Chief Complaint Admit Date R-WRIST, THORACIC AND LUMBAR SPINE Febru 2024 3:36pm Reason for Referral Specialty Diagnoses / Procedures Referred By Timoteo jaramillo Referred To Contact Gynecology Diagnoses Female genital prolapse, unspecified type Procedures CONSULT TO GYNECOLOGY Demond Barnard, [address] [place] [address] Estela Johns MD [address] [address] Referral ID Status Reason Start Date Expiration Date Visits Requested Visits Authorized [id number] Ref Not Required PCP Requested Referral 02/24/2024 02/23/2025 1 1 Summary Purpose Family History No Family History Records FoundNo Family History Records Found Additional Source Comments Goals (unrecognized section and content) Goals may be documented in a n alternate sectionGoals may be documented in an alternate sectionGoals may be documented in an alternate sectionGoals may be documented in an alternate sectionGoals may be documented in an alternate sectionGoals may be documented in an alternate sectionGoals may be documented in an alternate sectionGoals may be documented in an alternate sectionGoals may be documented in an alternate sectionGoals may be documented in an alternate section Care Teams (unrecognized sec tion and content) Team Status: Active Member Role Status Dates Dr. Balbir Leach MD Family Provider Active Dr. Balbir Leach MD Primary Care Provider Activ e Team Status: Inactive Member Role Status Dates Dr. Balbir Leach MD Primary Care Provider, Attending Provider, Referring Provider Active Team Status: Inactive Member Role Status Dates Dr. Balbir Leach MD Primary Care Provider, Atte nding Provider Active Team Status: Active Member Role Status Dates Dr. Balbir Leach MD Primary Care Provider, Attending Provider, Referring Provider Active Team Status: Active Member Role Status Dates Dr. Balbir Leach MD Primary Care Provider, Referring Provider, Other Provider Active Dr. Laurita Montero MD Attending Provider Active Team Status: Inactive Member Role Status Dates Dr. Balbir Leach MD Primary Care Provider Activ e Dr. Jennifer Bentley MD Attending Provider, Emergency Provider Active Team Status: Active Member Role Status Dates Dr. Jasmyne Leach MD Family Provider Active Dr. Jasmyne Leach MD Primary Care Provider Acti ve Team Status: Inactive Member Role Status Dates Dr. Jasmyne Leach MD Primary Care Provider, Attending Provider, Referring Provider Active Insurance Specialist Relationship Specialty Start Date End Date Jasmyne Leach MD [address] [place] [address] PCP - General Family Medicine 11/02/10 Stephania Rodriguez NP [address] [place] [address] Family Medicine 02/24/24 Insurance Specialist Relationship Specialty Start Date End Date Jasmyne Leach MD [address] [facility], [place] [address] PCP - General Family Medicine 11/02/10 Stephania Rodriguez NP [address] [facility] [place] [address] Family Medicine 02/24/24 Insurance Specialist Relationship Specialty Start Date End Date Jasmyne Leach MD [address] [facility], [place] [address] PCP - General Family Medicine 11/02/10 Stephania Rodriguez NP [address] [facility], [place] [address] Family Medicine 02/24/24 Stephania Rodriguez NP [address] [facility], [place] [address] Referring Family Medicine 05/11/24 Team Status: Active Member Role Status Dates Stephania CHÁVEZ, SECTION GANG-C Primary Care Provider Activ e Team Status: Inactive Member Role Status Dates Stephania CHÁVEZ, SECTION GANG-C Primary Care Provider Activ e Start: June 08, 2024 End: June 08, 2024 Stephania CHÁVEZ SECTION GANG-C Attending Provider Active Start: June 08, 2024 End: June 08, 2024 Team Status: Inactive Member Role Status Dates Stephania CHÁVEZ, SECTION GANG-C Primary Care Provider Activ e Start: August 04, 2024 End: August 04, 2024 Stephania CHÁVEZ, SECTION G[employer]-C Attending Provider Active Start: August 04, 2024 End: August 04, 2024 Team Status: Inactive Member Role Status Dates Stephania CHÁVEZ, SECTION GANG-C Primary Care Provider Activ e Start: September 01, 2024 End: September 01, 2024 Stephania CHÁVEZ, SECTION GANG-C Attending Provider Active Start: September 01, 2024 End: September 01, 2024 Stephania Rodriguez [facility] Referring Provider Active Start: September 01, 2024 End: September 01, 2024 Insurance Specialist Relationship Specialty Start Date End Date Jasmyne Leach MD [address] [place] [address] PCP - General Family Medicine 11/02/10 Stephania Rodriguez NP [address] [place] [address] Family Medicine 02/24/24 Stephania Rodriguez NP [address] [place] [address] Referring Family Medicine 05/11/24 Insurance Specialist Relationship Specialty Start Date End Date Jasmyne Leach MD [address] [place] [address] PCP - General Family Medicine 11/02/10 Stephania Rodriguez NP [address] [place] [address] Family Medicine 02/24/24 Stephania Rodriguez NP [address] [place] [address] Referring Family Medicine 05/11/24 Insurance Specialist Relationship Specialty Start Date End Date Jasmyne Leach MD [address] [place] [address] PCP - General Family Medicine 11/02/10 Stephania Rodriguez NP [address] [place] [address] Family Medicine 02/24/24 Stephania Rodriguez NP [address] [place] [address] Referring Family Medicine 05/11/24 Insurance Specialist Relationship Specialty Start Date End Date Jasmyne Leach MD [address] [place] [address] PCP - General Family Medicine 11/02/10 Stephania Rodriguez NP [address] [facility] [place] [address] Family Medicine 02/24/24 Stephania Rodriguez NP [address] [place] [address] Referring Family Medicine 05/11/24 Source Comments (unrecognize d section and content) In the event this informatio n is protected by the Federal Confidentiality of Alcohol and Drug Abuse Patient Records regulations: The Federal rules restrict any use of the information to criminally investigate or prosecute any alcohol or drug abuse patient.[facility] FoundationIn the event this information is protected by the Federal Confidentiality of Alcohol and Drug Abuse Patient Records regulations: The Federal rules restrict any use of the information to criminally investigate or prosecute any alcohol or drug abuse patient.[facility] FoundationIn the event this information is protected by the Federal Confidentiality of Alcohol and Drug Abuse Patient Records regulations: The Federal rules restrict any use of the information to criminally investigate or prosecute any alcohol or drug abuse patient.[facility] FoundationIn the event this information is protected by the Federal Confidentiality of Alcohol and Drug Abuse Patient Records regulations: The Federal rules restrict any use of the information to criminally investigate or prosecute any alcohol or drug abuse patient.[facility] FoundationIn the event this information is protected by the Federal Confidentiality of Alcohol and Drug Abuse Patient Records regulations: The Federal rules restrict any use of the information to criminally investigate or prosecute any alcohol or drug abuse patient.[facility] FoundationIn the event this information is protected by the Federal Confidentiality of Alcohol and Drug Abuse Patient Records regulations: The Federal rules restrict any use of the information to criminally investigate or prosecute any alcohol or drug abuse patient.[facility] FoundationIn the event this information is protected by the Federal Confidentiality of Alcohol and Drug Abuse Patient Records regulations: The Federal rules restrict any use of the information to criminally investigate or prosecute any alcohol or drug abuse patient.[facility] FoundationIn the event this information is protected by the Federal Confidentiality of Alcohol and Drug Abuse Patient Records regulations: The Federal rules restrict any use of the information to criminally investigate or prosecute any alcohol or drug abuse patient.[facility] Reason for Visit (unrecogniz ed section and content) Reason Comments Consult Internal and externa l hemorrhoids w/ possible rectal prolapse Reason Comments Appointment Reason Comments Hemorrhoids Rectal Prolapse Reason Comments Established Patient Follow-Up Hemorrhoids Patient presents for hemorrhoid banding Reason Comments pelvic organ prolapse Specialty Diagnoses / Procedures Referred By Contac t Referred To Contact Diagnoses Midline cystocele Rectocele Procedures CONSULT TO FEMALE UROLOGY/URO GYNECOLOGY OFFICE/OUTPATIENT [facility] [address] [place] [address] [place] [address] Phone: tel: fax: Gunjan Hector MD [address] [place] [address] Phone: tel: fax: Referral ID Status Reason Start Date Expiration Date V isits Requested Visits Authorized [id number] Closed PCP Requested Referral 08/17/2024 08/17/2025 1 1 Reason Comments Established Patient Follow-Up follow up/ rectal prolapse Reason Comments Refill Request INFORMATION SOURCE (unrecogn ized section and content) DATE CREATED AUTHOR 09/16/2024 [facility] DATE CREATED AUTHOR AUTHOR'S FANNY SELENADELL 01/21/2025 [facility] FOR RECORDS PERTAINING TO PATIENTS WHO ARE OR HAVE BEEN ENROLLED IN A CHEMICAL DEPENDENCY/SUBSTANCEABUSE PROGRAM, SOME INFORMATION MAY BE OMITTED. This clinical summary was aggregated from multiple sources. Caution should be exercised in using it in the provision of clinical care. This summary normalizes information from multiple sources, and as a consequence, information in this document may materially change the coding, format and clinical context of patient data. In addition, data may be omitted in some cases. CLINICAL DECISIONS SHOULD BE BASED ON THE PRIMARY CLINICAL RECORDS. [employer] provides no warranty or guarantee of the accuracy or completeness of information in this document.
== END | disposition home or self-care (01) ==
LOC: VSLAB 10:47
PROVIDERS: PCP Nurse Practitioner Family; Visit Provider Nurse Practitioner Family
DX: E03.9 Hypothyroidism, unspecified (principal); E55.9 Vitamin D deficiency, unspecified; K64.9 Unspecified hemorrhoids; M54.50 Low back pain, unspecified
CPT/HCPCS: 36415; 80053; 82306; 84439; 84443; 85025

== ENCOUNTER → 2025-03-14 | Outpatient (CLI) | payer MEDICARE, OTHER, SELFPAY ==
[2025-03-14 19:53] LABS: AST(SGOT) 30 U/L (<=31); Alanine Aminotransfer ALT/SGPT 19 U/L (<=34); Albumin, Serum 4.1 g/dL (3.4-4.8); Alkaline Phosphatase 158 U/L (35-104); Anion Gap 14 (5-15); BUN 24 mg/dL (4-19); BUN/Creat Ratio 26.3 RATIO (10-20); Calcium,Total 9.4 mg/dL (7.6-11.0); Carbon Dioxide 23.0 mmol/L (21.0-32.0); Chloride 104 mmol/L (98-108); Globulin 2.9 g/dL (2.2-4.2); Glucose 86 mg/dL (70-99); Potassium 3.8 mmol/L (3.3-5.1)
[2025-03-16 04:07] LABS: GGTP 96 IU/L (0-60)
== END | disposition home or self-care (01) ==
PROVIDERS: PCP Nurse Practitioner Family; Referring Provider Nurse Practitioner Family; Visit Provider Nurse Practitioner Family
DX: N94.5 Secondary dysmenorrhea (principal)
CPT/HCPCS: 36415; 80053; 82977

== ENCOUNTER 2025-06-06 11:28 | Outpatient (CLI) | payer MEDICARE, OTHER, SELFPAY ==
[2025-06-06 17:01] LABS: AST(SGOT) 26 U/L (<=31); Alanine Aminotransfer ALT/SGPT 19 U/L (<=34); Albumin, Serum 4.1 g/dL (3.4-4.8); Alkaline Phosphatase 160 U/L (35-104); Anion Gap 11 (5-15); BUN 20 mg/dL (4-19); BUN/Creat Ratio 22.0 RATIO (10-20); Calcium,Total 9.5 mg/dL (7.6-11.0); Carbon Dioxide 26.8 mmol/L (21.0-32.0); Chloride 102 mmol/L (98-108); Globulin 3.0 g/dL (2.2-4.2); Glucose 97 mg/dL (70-99); Potassium 4.2 mmol/L (3.3-5.1)
[2025-06-08 03:33] LABS: GGTP 70 IU/L (0-60)
== END 2025-06-06 23:59 | disposition home or self-care (01) ==
LOC: VSLAB 11:29
PROVIDERS: PCP Nurse Practitioner Family; Referring Provider Nurse Practitioner Family; Visit Provider Nurse Practitioner Family
DX: R94.5 Abnormal results of liver function studies (principal); R74.8 Abnormal levels of other serum enzymes
CPT/HCPCS: 36415; 80053; 82977

== ENCOUNTER → 2025-06-15 | Outpatient (CLI) | payer MEDICARE, OTHER, SELFPAY ==
--- NOTE | 2025-06-15 09:52 | US_ITS ---
PROCEDURE: ABDOMEN LIMITED 06/15/2025 REASON FOR EXAM: ABN SERUM ENZYMES TECHNIQUE: Procedure Code: USABDL Modality: US Procedure: ABDOMEN LIMITED COMPARISON: November 01, 2019. FINDINGS: Liver: Diffusely echogenic suggesting fatty infiltration. Gallbladder: No stones, sludge, wall thickening or tenderness. Common bile duct: Normal measuring 6 mm. . Pancreas: Normal Other: Visualized portions of the right kidney are unremarkable. No right upper quadrant ascites. Spleen: The spleen measures 11.2 cm 4.4 cm 4.6 cm. US/Abdomen Limited IMPRESSION: Mild fatty infiltration of the liver. Reading Location: [place] [address]
== END | disposition home or self-care (01) ==
PROVIDERS: PCP Nurse Practitioner Family; Referring Provider Nurse Practitioner Family; Visit Provider Nurse Practitioner Family
DX: R74.8 Abnormal levels of other serum enzymes (principal)
CPT/HCPCS: 76705